=== PATIENT | female | born 1950 | race Caucasian/White ===

== ENCOUNTER 2019-11-21 09:03 | Outpatient (CLI) | payer OTHER, SELFPAY ==
[2019-11-21 09:31] LABS: Basophils Absolute Auto 0.1 K/mm3 (0.0-0.1); Basophils Percent Auto 0.8 % (0.2-1.2); Eosinophils Absolute Auto 0.4 K/mm3 (0-0.3); Eosinophils Percent Auto 4.6 % (0-4.4); Hematocrit 43.8 % (37.0-47.0); Hemoglobin 13.9 g/dL (12.0-15.0); Immature Granulocyte Absolute 0.02 K/mm3 (0.00-0.031); Immature Granulocyte Percent A 0.2 % (0-0.5); Lymphocytes Absolute Auto 2.73 K/mm3 (0.9-3.2); Lymphocytes Percent Auto 31.5 % (18.3-44.2); Mean Corpuscular HGB Conc 31.7 g/dl (32-36); Mean Corpuscular Hemoglobin 29.4 pg (26-34); Mean Corpuscular Volume 92.8 fl (80-100); Mean Platelet Volume 9.8 fl (7.4-10.4); Monocytes Absolute Auto 0.7 K/mm3 (0.1-0.6); Monocytes Percent Auto 8.5 % (2.6-8.5); Neutrophils Absolute Auto 4.7 K/mm3 (1.3-6.7); Neutrophils Percent Auto 54.4 % (45.5-73.1); Platelet Count Result 282 k/mm3 (150-375); Red Blood Count 4.72 M/mm3 (4.2-5.4); Red Cell Distribution Width 13.6 % (11.5-14.5); White Blood Count 8.7 K/mm3 (4.5-10.0)
[2019-11-21 09:38] LABS: Hemoglobin A1C 7.3 % (<5.7)
[2019-11-21 10:17] LABS: Creatinine Urine 55.3 mg/dL
[2019-11-21 10:22] LABS: MALB Creatinine Ratio 11.6 mg/g (0-30); Microalbumin Urine Random 6.4 mg/L (0-16.7)
[2019-11-21 10:38] LABS: Alanine Aminotransferase 25 U/L (4-35); Albumin Level 4.2 g/dL (3.5-5.1); Alkaline Phosphatase 88 U/L (38-126); Aspartate Amino Transferase 32 U/L (14-36); Bilirubin,Total 0.8 mg/dL (0.2-1.3); Blood Urea Nitrogen 11 mg/dL (7-17); Calcium 9.5 mg/dL (8.4-10.2); Carbon Dioxide 32 mmol/L (22-30); Chloride 101 mmol/L (98-107); Estimated Glomerular Filt Rate > 60; Glucose 128 mg/dL (65-105); Potassium 4.6 mmol/L (3.4-5.0); Sodium 139 mmol/L (137-145)
[2019-11-21 12:39] LABS: Folic Acid > 20.0 ng/mL (2.76->20)
== END 2019-11-21 09:04 | disposition home or self-care (01) ==
PROVIDERS: PCP Internal Medicine; Visit Provider Internal Medicine
DX: E11.9 Type 2 diabetes mellitus without complications (principal); I10 Essential (primary) hypertension; G62.9 Polyneuropathy, unspecified
CPT/HCPCS: 36415; 80053; 82043; 82607; 82746; 83036; 84443; 85025

== ENCOUNTER 2020-03-19 06:59 | Outpatient (CLI) | payer OTHER, SELFPAY ==
[2020-03-19 07:57] LABS: Anion Gap 6 mmol/L (8-16); Blood Urea Nitrogen 15 mg/dL (7-17); Calcium 9.5 mg/dL (8.4-10.2); Carbon Dioxide 30 mmol/L (22-30); Chloride 102 mmol/L (98-107); Estimated Glomerular Filt Rate > 60; Glucose 117 mg/dL (65-105); Sodium 138 mmol/L (137-145)
[2020-03-19 08:50] LABS: Creatinine Urine 172.7 mg/dL
[2020-03-19 08:56] LABS: MALB Creatinine Ratio 5.7 mg/g (0-30); Microalbumin Urine Random 9.9 mg/L (0-16.7)
[2020-03-19 10:56] LABS: Hemoglobin A1C 6.7 % (<5.7)
== END 2020-03-19 07:00 | disposition home or self-care (01) ==
PROVIDERS: PCP Internal Medicine; Visit Provider Internal Medicine
DX: E11.42 Type 2 diabetes mellitus with diabetic polyneuropathy (principal)
CPT/HCPCS: 36415; 80048; 82043; 83036

== ENCOUNTER 2020-03-21 15:24 | Outpatient (CLI) | payer OTHER, SELFPAY ==
--- NOTE | ~2020-03-21 | XR_ITS ---
EXAMINATION: XR hip RT 2V w AP pelvis DATE: 03/21/2020 15:45 INDICATION: Right hip pain post fall TECHNIQUE: Anteroposterior view of the pelvis and anteroposterior, frog leg and cross-table lateral v iews of the right hip were obtained. COMPARISON: CT dated 01/27/2019 FINDINGS: Alignment is normal. No fracture. Bilateral severe right and moderate left hip osteoarthritis. There is also mild bilateral sacral iliac osteoarthritis. Severe bilateral lower lumbar facet osteoarthriti s. IMPRESSION: 1. No acute osseous abnormality. 2. 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 Reviewed, dictated and finalized at location A. IMPRESSION: 1. No acute osseous abnormality. 2. Polyarticular osteoarthritis, moderate at the left hip and severe at the rig ht hip.
== END 2020-03-21 15:25 | disposition home or self-care (01) ==
PROVIDERS: PCP Internal Medicine; Visit Provider Internal Medicine
DX: M25.551 Pain in right hip (principal); M16.0 Bilateral primary osteoarthritis of hip
CPT/HCPCS: 73502

== ENCOUNTER 2020-03-30 01:09 | Outpatient (CLI) | payer OTHER, SELFPAY ==
[2020-03-30 18:19] LABS: SARS-CoV-2 RNA PCR Negative
== END 2020-03-30 01:10 | disposition home or self-care (01) ==
LOC: ANHCOVIDDT 01:09
PROVIDERS: PCP Internal Medicine; Visit Provider Internal Medicine Gastroenterology
DX: Z01.812 Encounter for preprocedural laboratory examination (principal); Z20.828 Contact with and (suspected) exposure to other viral communicable diseases
CPT/HCPCS: 87635; C9803; U0003

== ENCOUNTER 2020-04-01 01:15 | Day surgery (SDC) | payer OTHER, SELFPAY ==
[2020-03-17 14:49] VITALS: BMI 33.7
[2020-04-01 08:50] VITALS: BP 142/89; PULSE 93; RESP 20; TEMP 36.8; O2SAT 96
--- NOTE | 2020-04-01 09:12 | SUR.PREOP ---
STRATUS WAS USED TO SIGN TO PT
[2020-04-01] MEDS: LACTATED RINGERS 1,000 ML 150 ML IV CONT (09:24)
[2020-04-01 09:34] LABS: Glucose Point of Care 124 (65-105)
--- NOTE | 2020-04-01 09:48 | PM.HPGS ---
History of Present Illness History of Present Illness Consent: Risks, benefits, and alternatives have been discussed and questions answered. Patient agrees to proceed with procedure. Chief complaint: neoplasm screening Narrative: Lucia Bruner is a 69 year old female here for colonoscopy, last one with polyps about 5-6 years ago. 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 Review of Systems Constitutional: Constitutional: Denies headache(s) and Denies weakness Eyes: Eyes: Denies blurry vision ENT: Denies Normal hearing present, Denies headache(s) and Denies neck pain Cardiovascular: Cardiovascular: Denies chest pain and Denies dyspnea Respiratory: Respiratory: Denies dyspnea Gastrointestinal: Gastrointestinal: Reports no additional gastrointestinal complaints Genitourinary: Genitourinary: Denies dysuria Musculoskeletal: Musculoskeletal: Denies neck pain Integumentary/Breasts: Skin/Breast: Denies dry skin Neurologic: Reports Normal hearing present, Denies headache(s) and Denies weakness Psychiatric: Psychiatric: Denies anxiety Endocrine: Endocrine: Denies change in body appearance Hematologic/Lymphatic: Hematologic/Lymphatic: Denies easy bleeding Allergic/Immunologic: Allergic/Immunologic: Denies urticaria PMFSH Past Medical History Medical History (Updated 04/01/20 @ 09:49 by Redd Landon MD) Deaf, nonspeaking Dyslipidemia Essential hypertension ELIZABETH (obstructive sleep apnea) ELIZABETH (obstructive sleep apnea) Type 2 diabetes mellitus with diabetic polyneuropathy, without long-term current use of insulin Family History Family History (Updated 04/16/18 @ 10:28 by DOCTOR UNKNOWN) Mother Diabetes mellitus Father Asthma Family history of chronic obstructive pulmonary disease Other Cerebrovascular accident Depression Family history of alcoholism Family history of obesity Social History Social History Smoking status: Never smoker Alcohol intake: never Meds Home Medications and Allergies Home Medications Medication Instructions Recorded Confirmed Type aspirin 81 mg tablet,delayed 81 mg PO DAILY 06/01/19 04/01/20 History release omeprazole 20 mg capsule,delayed 20 mg PO BID #180 cap 10/21/19 04/01/20 Rx release atorvastatin 20 mg tablet See Rx Instructions .ROUTE 02/09/20 04/01/20 Rx .COMPLEX #90 tablet lisinopril 20 mg tablet See Rx Instructions .ROUTE 02/09/20 04/01/20 Rx .COMPLEX #90 tablet metformin 500 mg tablet See Rx Instructions .ROUTE 03/09/20 04/01/20 Rx .COMPLEX #360 tablet calcium phosphate-vitamin D3 1 tablet PO BID 03/17/20 04/01/20 History [Citracal-D3 Gummies] fluoxetine 20 mg capsule 20 mg PO DAILY #90 cap 03/17/20 04/01/20 Rx [id number]-zbm-[id number]-vit [id number] 1 tablet PO DAILY 03/17/20 04/01/20 History [Alive Women's 50 Plus (blend)] semaglutide 3 mg tablet 3 mg PO DAILY 30 Days #30 tablet 03/21/20 04/01/20 Rx sodium,potassium,mag sulfates 17.5 See Rx Instructions PO .COMPLEX 03/21/20 04/01/20 Rx gram-3.13 gram-1.6 gram oral soln #354 ml Allergies Allergy/AdvReac Type Severity Reaction Status Date / Time Penicillins Allergy Unknown Rash Verified 04/01/20 09:11 Vital Signs Vital Signs - 24 hr 04/01/20 08:50 Temperature 98.3 F Pulse Rate 93 Respiratory Rate 20 Blood Pressure 142/89 H Pulse Oximetry 96 Exam Const: General: comfortable and no acute distress HENMT: General nose exam: Normal nares present Other: deaf Eyes: General: appearance normal, both eyes and all related structures Neck: Neck: no JVD Resp: Auscultation: clear to auscultation bilaterally Cardio: Rate: regular rate Rhythm: regular rhythm GI: Inspection: non-distended GI Palp: Yes Soft to palpation Skin: General skin exam: normal color Neuro: General: gait normal Speech: normal speech Extrem: General: normal to inspection Psych: Mental Status: mental status grossly normal Assessment and Plan Assessment and mratha
--- NOTE | 2020-04-01 09:49 | WPDANESEPPF ---
Anes - Initial Pre Proc Eval Procedure: Operation Date: 04/01/20 10:00 Proposed Procedures p Screening Colonoscopy - Redd Landon MD Date/Time: 04/01/20 09:49 Surgeon: Redd Landon MD Pre Op Diagnosis: neoplasm screening Patient Data Age: 69 Gender: F Height: 5 ft 6 in Weight: 92 kg Last Vital Signs Temp 98.3 F 04/01/20 08:50 Pulse 93 04/01/20 08:50 Resp 20 04/01/20 08:50 BP 142/89 H 04/01/20 08:50 Pulse Ox 96 04/01/20 08:50 Allergies Allergy/AdvReac Type Severity Reaction Status Date / Time Penicillins Allergy Unknown Rash Verified 04/01/20 09:11 Home Medications Medication Instructions Recorded Confirmed Type aspirin 81 mg tablet,delayed 81 mg PO DAILY 06/01/19 04/01/20 History release omeprazole 20 mg capsule,delayed 20 mg PO BID #180 cap 10/21/19 04/01/20 Rx release atorvastatin 20 mg tablet See Rx Instructions .ROUTE 02/09/20 04/01/20 Rx .COMPLEX #90 tablet lisinopril 20 mg tablet See Rx Instructions .ROUTE 02/09/20 04/01/20 Rx .COMPLEX #90 tablet metformin 500 mg tablet See Rx Instructions .ROUTE 03/09/20 04/01/20 Rx .COMPLEX #360 tablet calcium phosphate-vitamin D3 1 tablet PO BID 03/17/20 04/01/20 History [Citracal-D3 Gummies] fluoxetine 20 mg capsule 20 mg PO DAILY #90 cap 03/17/20 04/01/20 Rx [id number]-lrhsn-vit [id number] 1 tablet PO DAILY 03/17/20 04/01/20 History [Alive Women's 50 Plus (blend)] semaglutide 3 mg tablet 3 mg PO DAILY 30 Days #30 tablet 03/21/20 04/01/20 Rx sodium,potassium,mag sulfates 17.5 See Rx Instructions PO .COMPLEX 03/21/20 04/01/20 Rx gram-3.13 gram-1.6 gram oral soln #354 ml Laboratory Tests 04/01/20 09:27 POC Capillary Glucose 124 mg/dl H mg/dl (65-105) Patient hx anesthesia problems: none Family hx anesthesia problems: none PMFSH Past Medical History Medical History (Updated 04/01/20 @ 09:49 by Price Atkinson MD) Dyslipidemia Essential hypertension ELIZABETH (obstructive sleep apnea) ELIZABETH (obstructive sleep apnea) Type 2 diabetes mellitus with diabetic polyneuropathy, without long-term current use of insulin Family History Family History (Updated 04/16/18 @ 10:28 by DOCTOR UNKNOWN) Mother Diabetes mellitus Father Asthma Family history of chronic obstructive pulmonary disease Other Cerebrovascular accident Depression Family history of alcoholism Family history of obesity Social History Social History Smoking status: Never smoker Alcohol intake: never Anes - Eval Final PreProcedure Day of Procedure 04/01/20 09:49 Patient weight: obese Heart: regular rate and rhythm Lungs: clear to auscultation Airway: Mallampati scale class II Neurological: alert and oriented Last oral intake: >/= 8 hours ASA classification: III Emergent: no Anesthetic plan: proceed Anesthesia type and monitoring: general GIVS and standard monitoring Informed Consent: The patient's anesthetic plan and its attendant risks and benefits were discussed with the patient/family/POA. Questions were solicited and answers provided to the satisfaction of the patient/family/POA.
[2020-04-01 10:26] VITALS: BP 116/86; PULSE 88; RESP 21; O2SAT 95
[2020-04-01 10:36] VITALS: BP 126/77; PULSE 79; RESP 27; O2SAT 96
[2020-04-01 10:46] VITALS: BP 136/86; PULSE 74; RESP 13; O2SAT 95
--- NOTE | 2020-04-01 10:46 | PC.NURSE ---
Crowd Controller used with MD and RN for education and teaching.
== END 2020-04-01 11:12 | disposition home or self-care (01) ==
PROVIDERS: PCP Internal Medicine; Visit Provider Internal Medicine Gastroenterology
PROC: 0DJD8ZZ Inspection of Lower Intestinal Tract, Via Natural or Artificial Opening Endoscopic (ICD-10-PCS; CPT 45378; principal; 2020-04-01 10:00)
DX: Z12.11 Encounter for screening for malignant neoplasm of colon (principal); D12.2 Benign neoplasm of ascending colon; H91.3 Deaf nonspeaking, not elsewhere classified; I10 Essential (primary) hypertension; E78.5 Hyperlipidemia, unspecified; G47.33 Obstructive sleep apnea (adult) (pediatric); E11.42 Type 2 diabetes mellitus with diabetic polyneuropathy; Z79.84 Long term (current) use of oral hypoglycemic drugs; E66.9 Obesity, unspecified; Z68.32 Body mass index [BMI] 32.0-32.9, adult; Z79.82 Long term (current) use of aspirin; Z79.899 Other long term (current) drug therapy; Z88.0 Allergy status to penicillin
CPT/HCPCS: 45380; 88305; J2001; J2704; J7120

== ENCOUNTER 2020-04-05 09:42 | Outpatient (CLI) | payer OTHER, SELFPAY ==
--- NOTE | ~2020-04-05 | MM_ITS ---
EXAMINATION: MM screening kojo BI w kira HISTORY: Screening TECHNIQUE: Craniocaudal and mediolateral oblique 3-D tomosynthesis images were obtained and synthetic 2-D images were generated. CAD analysis was submitted and interpreted. COMPARISON: No prior mammogram is available for comparison at this institution. BREAST PARENCHYMAL COMPOSITION: There are scattered areas of fibroglandular density. FINDINGS: There are bilateral periareolar asymmetries. There are benign breast calcifications. IMPRESSION: 1. Bilateral periareolar asymmetries. 2. Additional mammographic views and possible breast ultrasound are recommended. BI-RADS Category 0: Incomplete: Needs additional imaging evaluation. Reviewed, dictated and finalized at location A. IMPRESSION: 1. Bilateral periareolar asymmetries. 2. Additional mammographic views and possible breast ultrasound are recommended . BI-RADS Category 0: Incomplete: Needs additional imaging evaluation.
== END 2020-04-05 09:43 | disposition home or self-care (01) ==
PROVIDERS: PCP Internal Medicine; Visit Provider Internal Medicine
DX: Z12.31 Encounter for screening mammogram for malignant neoplasm of breast (principal); R92.8 Other abnormal and inconclusive findings on diagnostic imaging of breast
CPT/HCPCS: 77063; 77067

== ENCOUNTER 2020-05-11 11:51 | Outpatient (CLI) | payer OTHER, SELFPAY | END 2020-05-11 11:52 | disposition home or self-care (01) | LOC: ANHLAB 11:53 | PROVIDERS: PCP Internal Medicine; Visit Provider Internal Medicine | DX: G62.9 Polyneuropathy, unspecified (principal) | CPT/HCPCS: 36415 ==

== ENCOUNTER 2020-06-07 11:03 | Outpatient (CLI) | payer OTHER, SELFPAY ==
[2020-06-07 11:47] LABS: Basophils Absolute Auto 0.1 K/mm3 (0.0-0.1); Basophils Percent Auto 0.8 % (0.2-1.2); Eosinophils Absolute Auto 0.3 K/mm3 (0-0.3); Eosinophils Percent Auto 3.2 % (0-4.4); Hematocrit 41.8 % (37.0-47.0); Hemoglobin 13.4 g/dL (12.0-15.0); Immature Granulocyte Absolute 0.04 K/mm3 (0.00-0.031); Immature Granulocyte Percent A 0.4 % (0-0.5); Lymphocytes Absolute Auto 3.01 K/mm3 (0.9-3.2); Lymphocytes Percent Auto 30.7 % (18.3-44.2); Mean Corpuscular HGB Conc 32.1 g/dl (32-36); Mean Corpuscular Hemoglobin 29.3 pg (26-34); Mean Corpuscular Volume 91.3 fl (80-100); Mean Platelet Volume 9.8 fl (7.4-10.4); Monocytes Absolute Auto 0.8 K/mm3 (0.1-0.6); Monocytes Percent Auto 8.1 % (2.6-8.5); Neutrophils Absolute Auto 5.6 K/mm3 (1.3-6.7); Neutrophils Percent Auto 56.8 % (45.5-73.1); Platelet Count Result 289 k/mm3 (150-375); Red Blood Count 4.58 M/mm3 (4.2-5.4); White Blood Count 9.8 K/mm3 (4.5-10.0)
[2020-06-07 12:01] LABS: Alanine Aminotransferase 34 U/L (4-35); Albumin Level 4.2 g/dL (3.5-5.1); Alkaline Phosphatase 88 U/L (38-126); Anion Gap 8 mmol/L (8-16); Aspartate Amino Transferase 34 U/L (14-36); Bilirubin,Total 0.5 mg/dL (0.2-1.3); Blood Urea Nitrogen 11 mg/dL (7-17); Calcium 9.6 mg/dL (8.4-10.2); Carbon Dioxide 30 mmol/L (22-30); Chloride 103 mmol/L (98-107); Cholesterol 128 mg/dL (0-200); Estimated Glomerular Filt Rate > 60; Glucose 102 mg/dL (65-105); HDL Direct 34 mg/dL; Potassium 4.8 mmol/L (3.4-5.0); Sodium 141 mmol/L (137-145); Triglycerides 120 mg/dL (<150)
[2020-06-07 12:10] LABS: Hemoglobin A1C 6.4 % (<5.7)
[2020-06-07 12:12] LABS: LDL Cholesterol Direct 80 mg/dL
[2020-06-07 13:05] LABS: Folic Acid 13.7 ng/mL (2.76->20)
== END 2020-06-07 11:04 | disposition home or self-care (01) ==
LOC: ANHLAB 11:05
PROVIDERS: PCP Internal Medicine; Visit Provider Internal Medicine
DX: G62.9 Polyneuropathy, unspecified (principal); F33.1 Major depressive disorder, recurrent, moderate; I10 Essential (primary) hypertension; E11.42 Type 2 diabetes mellitus with diabetic polyneuropathy; E78.2 Mixed hyperlipidemia
CPT/HCPCS: 36415; 80053; 80061; 82607; 82746; 83036; 85025

== ENCOUNTER 2020-06-08 10:21 | Outpatient (CLI) | payer OTHER, SELFPAY ==
[2020-06-08 10:58] LABS: Creatinine Urine 81.9 mg/dL; Total Protein Urine Random 9 mg/dL
== END 2020-06-08 10:22 | disposition home or self-care (01) ==
PROVIDERS: PCP Internal Medicine; Visit Provider Internal Medicine
DX: E78.5 Hyperlipidemia, unspecified (principal); E11.42 Type 2 diabetes mellitus with diabetic polyneuropathy; G62.9 Polyneuropathy, unspecified; F33.1 Major depressive disorder, recurrent, moderate; I10 Essential (primary) hypertension
CPT/HCPCS: 82570; 84156

== ENCOUNTER 2020-09-16 15:45 | Emergency (ER) | payer OTHER, SELFPAY ==
--- NOTE | ~2020-09-16 | XR_ITS ---
EXAMINATION: XR chest 1V portable INDICATION: Shortness of breath and coughing TECHNIQUE: Portable AP chest at 1650 hours COMPARISON: 08/17/2019 FINDINGS: The lungs are free of acute opacities. There is no pleural effusion or pneumothorax. The ca rdiomediastinal silhouette is normal. IMPRESSION: 1. No acute cardiopulmonary abnormality. Reviewed, dictated and finalized at location A. R AND SLICER HAND
--- NOTE | ~2020-09-16 | XR_ITS ---
EXAMINATION: XR abdomen/kub 1V DATE: 09/16/2020 17:48 INDICATION: Low back pain. TECHNIQUE: A supine view of the abdomen on 2 radiographs was obtained. COMPARISON: None. FINDINGS: Several phleboliths in the pelvis. Moderate amount of gas and stool scattered throughout the bowels w ith no dilated bowel to suggest obstruction. No evident urolithiasis. Severe right and mild to modera te left hip osteoarthritis. Severe lower lumbar facet osteoarthritis. IMPRESSION: 1. Nonobstructive bowel gas pattern. Reviewed, dictated and finalized at location A. RIAL CONTROLLER
--- NOTE | ~2020-09-16 | CT_ITS ---
EXAMINATION: CT abdomen pelvis wo con DATE: 09/16/2020 17:56 INDICATION: Kidney stones. Low back pain. TECHNIQUE: Computed tomography (CT) of the abdomen and pelvis was performed without intravenous contr ast. Automated exposure control and iterative reconstruction technique were employed. The dose-length product was 912.08 mGy-cm. COMPARISON: 01/27/2019 FINDINGS: Mild dependent atelectasis in the bilateral lower lobes. Heart size is normal. No pericardial or pleu ral effusion. Small calcified gallstones along the dependent aspect of the otherwise normal gallbladd er. No gallbladder wall thickening or pericholecystic inflammatory change to suggest acute cholecysti tis. Diffuse hepatic steatosis with focal sparing along the gallbladder fossa. Spleen, pancreas and b ilateral adrenal glands are normal. Kidneys and ureters are normal with no urolithiasis, hydrouretero nephrosis or perinephric/ureteral stranding. Moderate amount of colonic stool. A couple sigmoid diver ticula without adjacent inflammatory change to suggest diverticulitis. Small bowel and appendix are n ormal. Bladder, uterus and bilateral adnexa are unremarkable. No free intraperitoneal gas or fluid. N o pathologically enlarged abdominal or pelvic lymphadenopathy. Moderate lumbar and lower thoracic spo ndylosis with 4 mm anterolisthesis L4 on L5 and severe bilateral lower lumbar facet osteoarthritis. 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 Severe right and mild to moderate left hip osteoarthritis. IMPRESSION: 1. No urolithiasis or acute intra-abdominal/pelvic process. 2. Cholelithiasis. 2. Diffuse hepatic steatosis. Reviewed, dictated and finalized at location A. DE FROID
[2020-09-16 15:58] VITALS: BP 148/77; PULSE 52; RESP 18; TEMP 33.2; O2SAT 97
[2020-09-16 16:47] LABS: Basophils Absolute Auto 0.1 K/mm3 (0.0-0.1); Basophils Percent Auto 0.6 % (0.2-1.2); Eosinophils Absolute Auto 0.4 K/mm3 (0-0.3); Eosinophils Percent Auto 2.7 % (0-4.4); Hematocrit 43.1 % (37.0-47.0); Hemoglobin 14.3 g/dL (12.0-15.0); Immature Granulocyte Absolute 0.06 K/mm3 (0.00-0.031); Immature Granulocyte Percent A 0.4 % (0-0.5); Lymphocytes Absolute Auto 3.51 K/mm3 (0.9-3.2); Lymphocytes Percent Auto 25.9 % (18.3-44.2); Mean Corpuscular HGB Conc 33.2 g/dl (32-36); Mean Corpuscular Hemoglobin 30.2 pg (26-34); Mean Corpuscular Volume 91.1 fl (80-100); Mean Platelet Volume 9.9 fl (7.4-10.4); Monocytes Percent Auto 7.4 % (2.6-8.5); Neutrophils Absolute Auto 8.5 K/mm3 (1.3-6.7); Platelet Count Result 334 k/mm3 (150-375); Red Blood Count 4.73 M/mm3 (4.2-5.4); Red Cell Distribution Width 13.6 % (11.5-14.5); White Blood Count 13.5 K/mm3 (4.5-10.0)
[2020-09-16 16:50] LABS: Add Urine Microscopic? YES; Appearance Urine Cloudy (Clear); Bacteria Urine Trace /hpf; Bilirubin Urine Negative (Negative); Blood Urine 1+ (Negative); Color Urine Straw (Yellow); Glucose Urine UA Negative (Negative); Ketones Urine Negative (Negative); Leukocyte Esterase Ur 3+ LEU/UL (Negative); Mucus Urine Rare /lpf; Nitrate Urine Negative (Negative); Protein Urine Negative (Negative); Squamous Epithelial Cell Urine Few /hpf (Few); Urobilinogen Urine Negative mg/dL (<2.0); WBC Urine 31-50 /hpf
--- NOTE | 2020-09-16 16:58 | PC.NURSE ---
orders for meds received. radiology in room now for portable xray.
[2020-09-16 17:00] LABS: Alanine Aminotransferase 31 U/L (4-35); Albumin Level 4.5 g/dL (3.5-5.1); Alkaline Phosphatase 102 U/L (38-126); Anion Gap 8 mmol/L (8-16); Aspartate Amino Transferase 36 U/L (14-36); Bilirubin,Total 0.5 mg/dL (0.2-1.3); Blood Urea Nitrogen 12 mg/dL (7-17); Carbon Dioxide 30 mmol/L (22-30); Chloride 101 mmol/L (98-107); Estimated CRCL calculation 75 ml/min; Estimated Glomerular Filt Rate > 60; Glucose 101 mg/dL (65-105); Potassium 4.3 mmol/L (3.4-5.0); Sodium 139 mmol/L (137-145)
[2020-09-16] MEDS: SODIUM CHLORIDE 0.9% IV 1,000 ML 999 ML IV CONT (17:10)
--- NOTE | 2020-09-16 17:18 | ED.GENADULT ---
HPI - General Adult General Chief complaint: Back Pain/Injury Stated complaint: severe back pain Time Seen by Provider: 09/16/20 16:08 Source: patient and family Mode of arrival: ambulatory Limitations: language barrier History of Present Illness HPI narrative: Patient 70-year-old female who presents with right CVA pain that is severe in nature has been present for 1 day denies similar occurrence in the past injury or trauma pain is worse with deep breathing and movement pain does not radiate patient denies urinary symptoms fever chills nausea vomiting or diarrhea. On arrival patient appears uncomfortable and is accompanied by her daughter Related Data Home Medications Medication Instructions Recorded Confirmed aspirin 81 mg tablet,delayed 81 mg PO DAILY 06/01/19 09/07/20 release calcium phosphate-vitamin D3 1 tablet PO BID 03/17/20 09/07/20 [Citracal-D3 Gummies] ud-elq-pzhjv-vit [id number] 1 tablet PO DAILY 03/17/20 09/07/20 [Alive Women's 50 Plus (blend)] Allergies Allergy/AdvReac Type Severity Reaction Status Date / Time Penicillins Allergy Unknown Rash Verified 09/07/20 10:13 Review of Systems Review of Systems: All systems reviewed & are unremarkable except as noted in HPI and below PMFSH Past Medical History Medical History Deaf, nonspeaking Dyslipidemia Essential hypertension ELIZABETH (obstructive sleep apnea) ELIZABETH (obstructive sleep apnea) Type 2 diabetes mellitus with diabetic polyneuropathy, without long-term current use of insulin Family History Family History Mother Diabetes mellitus Father Asthma Family history of chronic obstructive pulmonary disease Other Cerebrovascular accident Depression Family history of alcoholism Family history of obesity Social History Social History Alcohol intake: never Exam Narrative: Exam Narrative: GENERAL: Well-appearing, obese, uncomfortable and in no acute distress. HEAD: Normocephalic, atraumatic. EYES: PERRLA and EOMI. ENT: Nares clear, no rhinorrhea or epistaxis. Mucous membranes moist. NECK: Supple. No adenopathy or masses. No carotid bruits or JVD CHEST: Clear to auscultation. No respiratory distress. No wheezes rales or rhonchi HEART: Regular rate and rhythm. No murmur heard. Normal peripheral pulses. ABDOMEN: Soft, nontender, nondistended EXTREMITIES: Normal range of motion. No edema. Tenderness in the right CVA region SKIN: Warm, dry, no rash. NEURO: No focal deficits. Alert and oriented x3. PSYCH: Normal mood and affect. Course Course Emergency Course: Patient in the room at this time feeling much better likely urinary tract infection as etiology of her discomfort was given fluids Tylenol and antibiotic with marked improvement patient will be discharged home with outpatient reevaluation by primary care provided with reasons to return patient is afebrile nontoxic-appearing no distress and otherwise resting comfortably in the room Vital Signs Vital signs: Vital Signs Temperature 91.7 F L 09/16/20 15:58 Pulse Rate 52 L 09/16/20 15:58 Respiratory Rate 18 09/16/20 15:58 Blood Pressure 148/77 H 09/16/20 15:58 Pulse Oximetry 97 09/16/20 15:58 Temperature 91.7 F L 09/16/20 15:58 Pulse Rate 78 09/16/20 19:11 Respiratory Rate 16 09/16/20 19:11 Blood Pressure 129/81 09/16/20 19:11 Pulse Oximetry 98 09/16/20 19:11 Medical Decision Making MDM Narrative Medical decision making narrative: Patient symptoms seem most consistent with urinary tract infection as etiology of her back pain had marked improvement in the emergency department is afebrile nontoxic-appearing will be discharged home with planned outpatient follow-up Vital Signs Vital Signs: Vital Signs Temperature 91.7 F L 09/16/20 15:58 Pulse Rate 52 L 09/16/20 15:58
[2020-09-16 19:11] VITALS: BP 129/81; PULSE 78; RESP 16; O2SAT 98
--- NOTE | 2020-09-16 19:12 | PC.NURSE ---
SL removed. patient ready for discharge. daughter in room. provider aware.
== END 2020-09-16 19:20 | disposition home or self-care (01) ==
PROVIDERS: Emergency Medicine Emergency Medical Services; Emergency Provider Emergency Medicine; PCP Internal Medicine
DX: N39.0 Urinary tract infection, site not specified (principal); E78.5 Hyperlipidemia, unspecified; I10 Essential (primary) hypertension; G47.33 Obstructive sleep apnea (adult) (pediatric); E11.42 Type 2 diabetes mellitus with diabetic polyneuropathy; Z79.82 Long term (current) use of aspirin; K80.20 Calculus of gallbladder without cholecystitis without obstruction; K76.0 Fatty (change of) liver, not elsewhere classified
CPT/HCPCS: 36415; 71045; 74018; 74176; 80053; 81001; 85025; 87086; 87088; 96365; 96367; 99284; J0131; J0696; J7030

== ENCOUNTER 2020-10-31 09:45 | Outpatient (CLI) | payer OTHER, SELFPAY ==
--- NOTE | ~2020-10-31 | XR_ITS ---
EXAMINATION: XR hip RT 2V w AP pelvis EXAM DATE: 10/31/2020 10:28 INDICATION: No known recent injury provided at this time. Pain of the right hip. TECHNIQUE: Right hip frontal, 'frog leg' projections for interpretation. Frontal projection pelvis. Comparison is made to prior examination from 03/21/2020. FINDINGS: There is moderate to severe right hip, moderate left hip primary osteoarthritis. There are no acute fractures or dislocations identified. There is no subcutaneous gas. The soft tissue is unr emarkable. There are no radiopaque foreign bodies. No hip avascular necrosis suspected. There is n o significant interval change. IMPRESSION: Moderate to severe right, moderate left hip osteoarthritis. Reviewed, dictated and finalized at location A.
== END 2020-10-31 09:46 | disposition home or self-care (01) ==
PROVIDERS: PCP Internal Medicine; Visit Provider Internal Medicine
DX: M16.0 Bilateral primary osteoarthritis of hip (principal)
CPT/HCPCS: 73502

== ENCOUNTER 2021-01-12 07:54 | Outpatient (CLI) | payer OTHER, SELFPAY ==
--- NOTE | 2021-01-12 09:50 | ECG_ITS ---
Measurements Intervals [place] Rate: 71 P: 59 CT: 167 QRS: -33 QRSD: 83 T: 11 QT: 370 QTc: 404 Interpretive Statements SINUS RHYTHM LEFT AXIS DEVIATION LOW QRS VOLTAGE IN PRECORDIAL LEADS POOR R WAVE PROGRESSION, ANTERIOR LEADS BASELINE ARTIFACT- I, II, III, AVR, AVL, AVF BORDERLINE ECG Electronically Signed On 01-12-2021 10:18:54 CDT by Femi Moy D.O.
[2021-01-12 10:23] LABS: Basophils Absolute Auto 0.1 K/mm3 (0.0-0.1); Basophils Percent Auto 0.8 % (0.2-1.2); Eosinophils Absolute Auto 0.3 K/mm3 (0-0.3); Eosinophils Percent Auto 3.5 % (0-4.4); Hemoglobin 14.6 g/dL (12.0-15.0); Immature Granulocyte Absolute 0.04 K/mm3 (0.00-0.031); Immature Granulocyte Percent A 0.4 % (0-0.5); Lymphocytes Absolute Auto 2.69 K/mm3 (0.9-3.2); Lymphocytes Percent Auto 27.5 % (18.3-44.2); Mean Corpuscular HGB Conc 31.1 g/dl (32-36); Mean Corpuscular Volume 93.4 fl (80-100); Mean Platelet Volume 9.9 fl (7.4-10.4); Monocytes Absolute Auto 0.8 K/mm3 (0.1-0.6); Monocytes Percent Auto 8.5 % (2.6-8.5); Neutrophils Absolute Auto 5.8 K/mm3 (1.3-6.7); Neutrophils Percent Auto 59.3 % (45.5-73.1); Platelet Count Result 308 k/mm3 (150-375); Red Blood Count 5.03 M/mm3 (4.2-5.4); Red Cell Distribution Width 14.4 % (11.5-14.5); White Blood Count 9.8 K/mm3 (4.5-10.0)
[2021-01-12 10:27] LABS: Urine Cotinine NEGATIVE
[2021-01-12 10:29] LABS: INR 0.9; Prothrombin Time 12.8 Seconds (11.1-14.7)
[2021-01-12 10:30] LABS: Partial Thromboplastin Time 27.1 SECONDS (22.3-36.8)
[2021-01-12 10:48] LABS: Add Urine Microscopic? YES; Appearance Urine Clear (Clear); Bacteria Urine Trace /hpf; Bilirubin Urine Negative (Negative); Blood Urine Negative (Negative); Color Urine Yellow (Yellow); Glucose Urine UA Negative (Negative); Ketones Urine Negative (Negative); Leukocyte Esterase Ur 3+ LEU/UL (Negative); Mucus Urine Rare /lpf; Nitrate Urine Negative (Negative); Protein Urine Negative (Negative); Squamous Epithelial Cell Urine Moderate /hpf (Few); Transitional Epi Cells Urine Rare /hpf (None Seen); Urobilinogen Urine Negative mg/dL (<2.0)
== END 2021-01-12 07:55 | disposition home or self-care (01) ==
LOC: ANHSURGERY 08:06
PROVIDERS: PCP Internal Medicine; Visit Provider Orthopaedic Surgery
DX: Z01.818 Encounter for other preprocedural examination (principal); M16.11 Unilateral primary osteoarthritis, right hip; Z51.81 Encounter for therapeutic drug level monitoring; Z79.899 Other long term (current) drug therapy
CPT/HCPCS: 80307; 81001; 85025; 85610; 85730; 86850; 86900; 86901; 87081; 87086; 87088; 93005

== ENCOUNTER 2021-04-09 00:43 | Observation (INO) | payer OTHER, SELFPAY ==
[2021-04-09] VITALS (11 sets, daily range): BP systolic 106–138; BP diastolic 58–89; PULSE 76–92; RESP 16–20; TEMP 36.4–36.7; O2SAT 96–99; BMI 32.7
--- NOTE | ~2021-04-09 | CT_ITS ---
EXAMINATION: CTA chest PE protocol DATE: 04/09/2021 02:03 INDICATION: Chest pain. TECHNIQUE: Computed tomography angiography (CTA) of the chest was performed with 100 mL Omnipaque-350 intravenous contrast timed to evaluate the pulmonary arteries. Coronal maximum intensity projection 3D-reconstructions were created by the technologist. Automated exposure control and iterative reconst ruction technique were employed. The dose-length product was 727.43 mGy-cm. COMPARISON: CT abdomen and pelvis 09/16/2020 FINDINGS: The lungs demonstrate mild atelectasis. There is mild scarring in paraspinal right lower lo be. No pleural effusion. The heart size is normal. No pericardial effusion. There is no pulmonary emb olus. There is diffuse hepatic steatosis. There is mild thoracic spondylosis. IMPRESSION: 1. No pulmonary embolus. Sensitivity is moderately decreased by motion artifact. Reviewed, dictated and finalized at location A. IMPRESSION: 1. No pulmonary embolus. Sensitivity is moderately decreased by motion artifact .
--- NOTE | ~2021-04-09 | XR_ITS ---
EXAMINATION: XR chest 1V portable DATE: 04/09/2021 01:08 INDICATION: Chest pain TECHNIQUE: frontal view of the chest was obtained. COMPARISON: Chest radiograph dated 09/16/2020 FINDINGS: Lung volumes are mildly decreased but remain clear with no focal airspace opacities, pulmonary edema, pleural effusion or pneumothorax. The cardiomediastinal silhouette is normal. Mild degenerative skel etal changes in the spine and at the bilateral shoulders. IMPRESSION: 1. No acute cardiopulmonary disease. Reviewed, dictated and finalized at location A.
--- NOTE | 2021-04-09 00:53 | ED.GENADULT ---
HPI - General Adult General Chief complaint: Chest Pain Stated complaint: chest pain Time Seen by Provider: 04/09/21 00:48 Source: RN notes reviewed History of Present Illness HPI narrative: Patient presents emergency department from home for chest pain. Patient states chest pain has been ongoing for the past 2 days the pain is intermittent and located over the left side the chest goes in the shoulder pain is described as sharp and stabbing she denies any associated shortness of breath or abdominal pain patient does state that she has a history of hypertension high cholesterol as well as diabetes she denies any fevers or chills nausea vomiting or any other symptom Related Data Home Medications Medication Instructions Recorded Confirmed aspirin 81 mg tablet,delayed 81 mg PO DAILY 06/01/19 04/05/21 release calcium phosphate-vitamin D3 1 tablet PO BID 03/17/20 04/05/21 [Citracal-D3 Gummies] [id number]-[id number]-vit [id number] 1 tablet PO DAILY 03/17/20 04/05/21 [Alive Women's 50 Plus (blend)] omeprazole 20 mg capsule,delayed 20 mg PO PRN PRN cap 12/13/20 04/05/21 release nystatin 100,000 unit/gram topical 1 applic TOPICAL DAILY 04/05/21 04/05/21 cream Allergies Allergy/AdvReac Type Severity Reaction Status Date / Time Penicillins Allergy Unknown Rash/ITCHIN Verified 04/05/21 09:30 G Review of Systems Review of Systems: Gen.: Denies fevers or chills ENT: Denies congestion Respiratory: Denies shortness of breath or cough CV: See HPI GI: Denies abdominal pain nausea, emesis or diarrhea Musculoskeletal: Denies back pain or muscle pain Neuro: Denies numbness, tingling, weakness or focal weakness Skin: Denies rash Except as documented, all other systems reviewed and negative [facility] Past Medical History Medical History Deaf, nonspeaking 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 Dyslipidemia Essential hypertension GERD (gastroesophageal reflux disease) Nasal septum ulceration Obesity (BMI 30.0-34.9) Obesity (BMI 30.0-34.9) ELIZABETH (obstructive sleep apnea) ELIZABETH (obstructive sleep apnea) Rash Seasonal allergies Type 2 diabetes mellitus with diabetic polyneuropathy, without long-term current use of insulin Vaccine counseling Vaginal dryness Venous insufficiency Surgical History Surgical History History of foot surgery Bilateral bunionectomy [id number] History of left knee replacement Family History Family History Mother Diabetes mellitus Father Asthma Family history of chronic obstructive pulmonary disease Other Arthritis Cerebrovascular accident Depression Family history of alcoholism Family history of obesity High cholesterol Social History Social History Smoking status: Never smoker Second hand tobacco smoke exposure: No Additional smoking assessment comments: DENIES ANY FORM OF TOBACCO USE Alcohol intake: never Substance use: never Substance use type: does not use Spiritual care concerns: No Exam Narrative: APPEARANCE: No acute distress, nontoxic, resting in bed EYES: EOMI HEENT: Normocephalic, atraumatic, OMM RESPIRATORY: No respiratory distress Clear to auscultation bilaterally with no rhonchi wheezing or rales. CARDIOVASCULAR: Regular rate and rhythm without murmurs rubs or gallops. ABDOMINAL: Soft, nontender, nondistended, no rebound or guarding MUSCULOSKELETAl: Moves all extremities. No clubbing, cyanosis or edema. NEURO: Awake and alert. Following commands, speech normal, no focal deficits SKIN:: Warm, dry. No rashes lesions or abrasions PSYCHIATRIC: Normal affect/mood, Course Course Emergency Course: Discussed with Dr. Nunez presentation work-up agrees with admission at this time Discussed with
--- NOTE | 2021-04-09 00:59 | ECG_ITS ---
Measurements Intervals [place] Rate: 100 P: 63 MN: 168 QRS: -36 QRSD: 83 T: 58 QT: 326 QTc: 422 Interpretive Statements SINUS TACHYCARDIA LEFT AXIS DEVIATION DELAYED PRECORDIAL R/S TRANSITION BASELINE ARTIFACT- I, II, III, AVF, V1-V6 BORDERLINE ECG Electronically Signed On 04-09-2021 7:09:28 CDT by Femi Moy D.O.
[2021-04-09 01:09] LABS: Basophils Absolute Auto 0.1 K/mm3 (0.0-0.1); Basophils Percent Auto 0.6 % (0.2-1.2); Eosinophils Absolute Auto 0.4 K/mm3 (0-0.3); Eosinophils Percent Auto 3.5 % (0-4.4); Hematocrit 40.4 % (37.0-47.0); Hemoglobin 12.5 g/dL (12.0-15.0); Immature Granulocyte Absolute 0.04 K/mm3 (0.00-0.031); Immature Granulocyte Percent A 0.4 % (0-0.5); Lymphocytes Absolute Auto 4.12 K/mm3 (0.9-3.2); Lymphocytes Percent Auto 38.2 % (18.3-44.2); Mean Corpuscular HGB Conc 30.9 g/dl (32-36); Mean Corpuscular Hemoglobin 28.4 pg (26-34); Mean Corpuscular Volume 91.8 fl (80-100); Mean Platelet Volume 9.4 fl (7.4-10.4); Monocytes Absolute Auto 0.9 K/mm3 (0.1-0.6); Monocytes Percent Auto 8.6 % (2.6-8.5); Neutrophils Absolute Auto 5.2 K/mm3 (1.3-6.7); Neutrophils Percent Auto 48.7 % (45.5-73.1); Platelet Count Result 321 k/mm3 (150-375); Red Cell Distribution Width 13.4 % (11.5-14.5); White Blood Count 10.8 K/mm3 (4.5-10.0)
[2021-04-09 01:19] LABS: Alanine Aminotransferase 23 U/L (4-35); Albumin Level 4.2 g/dL (3.5-5.1); Alkaline Phosphatase 113 U/L (38-126); Anion Gap 7 mmol/L (8-16); Aspartate Amino Transferase 28 U/L (14-36); Bilirubin,Total 0.4 mg/dL (0.2-1.3); Blood Urea Nitrogen 15 mg/dL (7-17); Calcium 10.1 mg/dL (8.4-10.2); Carbon Dioxide 29 mmol/L (22-30); Chloride 101 mmol/L (98-107); Estimated Glomerular Filt Rate > 60; Glucose 150 mg/dL (65-110); Potassium 4.5 mmol/L (3.4-5.0); Sodium 137 mmol/L (137-145)
[2021-04-09 01:27] LABS: Prothrombin Time 12.6 Seconds (11.1-14.7)
[2021-04-09 01:28] LABS: Partial Thromboplastin Time 26.9 SECONDS (22.3-36.8)
[2021-04-09 01:31] LABS: D Dimer 1.46 ug/mL (<0.48)
[2021-04-09 01:33] LABS: Troponin I < 0.012 ng/mL (0.000-0.034)
[2021-04-09] MEDS: ASPIRIN 81 MG CHEWABLE TABLET 324 MG PO (03:15)
--- NOTE | 2021-04-09 05:53 | ADMIMU ---
This patient, Lucia Bruner, was admitted to IMU status, and placed in IMU Room 206-01 0n 04/09/21 at 0430. Patient/family oriented to hospital policies and general routines including ID bracelet, bed and alarms, visiting hours, pain management, procedures, bathroom and other care routines, personal items, smoking policy, room service/diet, and visiting hours. Valuables list has been completed. Information on how to activate the Rapid Response Team has been discussed. Patient/Family are encouraged to report perceived risks to care and to ask questions if they do not understand what they are told or what they should do.
--- NOTE | 2021-04-09 05:58 | PC.NURSE ---
Pt recieved both doses of Moderna covid vaccination.
[2021-04-09 06:19] LABS: Troponin I < 0.012 ng/mL (0.000-0.034)
[2021-04-09 08:26] LABS: Troponin I < 0.012 ng/mL (0.000-0.034)
[2021-04-09] MEDS: GABAPENTIN 300 MG CAPSULE 600 MG PO (09:15)
[2021-04-09] MEDS: ENOXAPARIN 40 MG/0.4 ML SYRINGE SUB-Q (09:22)
[2021-04-09] MEDS: ATORVASTATIN 20 MG TABLET BY MOUTH (09:22)
[2021-04-09] MEDS: lisinopriL 20 MG TABLET BY MOUTH (09:22)
[2021-04-09] MEDS: ASPIRIN 81 MG ENTERIC TABLET PO (09:22)
[2021-04-09] MEDS: MAGNESIUM OXIDE 200 MG TABLET PO (09:26)
[2021-04-09] MEDS: PANTOPRAZOLE 40 MG TABLET PO (09:26)
--- NOTE | 2021-04-09 10:28 | PM.CNCAR ---
Assessment and Plan Assessment and plan (1) Chest pain: Code(s): R07.9 - Chest pain, unspecified Status: Acute Assessment and Plan: Left chest and shoulder discomfort in an older lady with multiple risk factors for coronary disease. Atypical for cardiac pain Troponins are negative EKG is normal This appears to be musculoskeletal pain, possibly rotator cuff injury. Discussed with DONA Babcock, agree with plan for Aleve, Tylenol and follow-up with Dr. Tatum (2) Essential hypertension: Code(s): I10 - Essential (primary) hypertension Status: Acute Assessment and Plan: Controlled. History of Present Illness History of Present Illness Consult date/time: 04/09/21 10:28 Consult reason: chest pain Reason For Visit: Chest Pain Narrative: Lucia Bruner is a 70-year-old female whom I was asked to see at the request of the hospitalist for my advice and opinion regarding her chest pain, in consultation. She has history of hypertension, diabetes and hyperlipidemia. 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 The patient apparently started having left shoulder and left upper chest pain after doing some painting on her house in December. This seemed to resolve. She had hip surgery in February by dr. Tatum with a good recovery. She has been started on gabapentin for some tingling in her feet. She started having recurrent discomfort of the left shoulder radiating to the chest perhaps on Saturday. These episodes only occur in bed, particularly when she rolls over on her left side. It is a stabbing, electrical pain in the left upper chest, shoulder and arm which becomes an intense pressure. She gets to gasping for breath because of pain, although she is not short of breath. She will get up and walk around and it resolves. It is very scary. In the last day or 2 she has had some heart pounding associated with that. There has been no nausea. During the day she can get up and do normal activities with no particular problems. There is no history of any heart disease or exertional chest discomfort. Review of Systems Constitutional: Constitutional: Reports no additional constitutional complaints Eyes: Eyes: Denies blurry vision ENT: Denies epistaxis Cardiovascular: Cardiovascular: Reports chest pain, Denies diaphoresis, Denies pedal edema, Denies leg edema, Denies lightheadedness and Reports palpitations Respiratory: Respiratory: Denies cough, Reports dyspnea and Denies dyspnea on exertion Gastrointestinal: Gastrointestinal: Denies abdominal pain Genitourinary: Genitourinary: Reports no additional female genitourinary complaints Musculoskeletal: Musculoskeletal: Reports arthralgias Comments: No history of any neck or back problems. Integumentary/Breasts: Skin/Breast: Denies rash Neurologic: Denies confusion Comments: Patient is deaf Psychiatric: Psychiatric: Denies behavioral changes PMFSH Past Medical History Medical History Deaf, nonspeaking 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 Dyslipidemia Essential hypertension GERD (gastroesophageal reflux disease) Nasal septum ulceration Obesity (BMI 30.0-34.9) Obesity (BMI 30.0-34.9) ELIZABETH (obstructive sleep apnea) ELIZABETH (obstructive sleep apnea) Rash Seasonal allergies Type 2 diabetes mellitus with diabetic polyneuropathy, without long-term current use of insulin Vaccine counseling Vaginal dryness Venous insufficiency Surgical History Surgical History History of foot surgery Bilateral bunionectomy [id number] History of left knee replacement Family History Family History
--- NOTE | 2021-04-09 11:13 | PM.SD2 ---
Same Day Admit/Disch: HPI History of Present Illness Chief complaint: Chest Pain Narrative: Lucia Bruner is a 70 year old female with a history of high cholesterol, hypertension, diabetes, who presents emergency room with left shoulder pain. Patient states in November 2028 she was painting her house and injured her left shoulder. At that time she took ibuprofen with improvement of her symptoms. She has not had any issues until just recently when she began having more left shoulder pain with certain movements. Specifically she has pain that wakes her up in the middle the night when she turns on her left side. She has severe left shoulder pain with radiation of pain into her left chest. Usually when she is woken up due to severe pain she stands up and walks into her living room where she is able to take some deep breath and control her pain. She denies any chest pain to palpation, deep inspiration, chest pain when walking around exerting herself. She denies any nausea, vomiting, diaphoresis, lightheadedness, dizziness, palpitations. She was prescribed gabapentin by her primary care doctor and has not helped with the symptoms overnight. She has not taking any other medications for this pain. She denies any pain during the day when she is walking around or doing other activities. Just at night when she rolls onto her left shoulder while sleeping. Patient denies any history of neck or back issues. Denies any history of heart problems. Sometimes she reports some intermittent left biceps spasming. The patient believes this is her shoulder and denies any of this concerning her as if it is her heart. She has been told she has ELIZABETH but has not used his CPAP in a while because she could not tolerate it. The patient states sometimes due to the intensity of her pain she begins to her ?hyperventilate?, but denies any other types of trouble breathing, cough. She states she just began to ?panic breathing . She denies any fevers, chills, abdominal pain, leg swelling, calf pain, or any other symptoms at this time. Initial vitals showed stable blood pressure to 138/89, normal heart rate 92 beats per minute, respiratory rate normal, oxygen saturation 99% on room air and afebrile. Initial labs showed slight leukocytosis at 10,800, normal differential, normal coag panel other than elevation to D-dimer 1.46. CMP normal other than glucose slightly elevated 150. Troponin negative x3. Chest x-ray showed no acute cardiopulmonary disease. CTA chest was completed due to elevated D-dimer and possible chest pain symptoms which showed no pulmonary embolism. The cadastral surveyor was consulted and evaluated the patient at bedside with myself. We decided this all seems your lead to a possible to a torn rotator cuff. We recommend her to continue taking gabapentin at night and ibuprofen/Tylenol as needed for symptoms. Follow-up with her orthopedic surgeon and primary care provider within 1 week for further evaluation. She may need physical therapy. At this time with negative troponins, normal telemetry, no EKG changes, noncardiac related chest pains symptoms we are clearing her for discharge. The patient and daughter understand agree with plan all questions answered. Return to ER warnings given. Patient discharged in stable condition. [facility] Past Medical History Medical History Deaf, nonspeaking 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 Dyslipidemia Essential hypertension GERD (gastroesophageal reflux disease) Nasal septum ulceration Obesity (BMI 30.0-34.9) Obesity (BMI 30.0-34.9) ELIZABETH (obstructive sleep apnea) ELIZABETH (obstructive sleep apnea) Rash Seasonal allergies Type 2 diabetes mellitus with diabetic polyneuropathy, without long-term current use of insulin Vaccine counseling Vaginal dryness Venous insufficiency Surgical History Surgical History (Reviewed 04/09/21 @ 13:48 by Jeana Rascon
--- NOTE | 2021-04-09 14:12 | PC.NURSE ---
04/09/21 13:10 Patient discharged to home today. Discharge instructions were given with an translator interpreter. Patient had no further questions at this time.
== END 2021-04-09 13:10 | disposition home or self-care (01) ==
LOC: ANHED 03:42 → ANHIMU 03:51
PROVIDERS: Admitting Provider Internal Medicine; Emergency Provider Emergency Medicine; PCP Internal Medicine; Visit Provider Internal Medicine Nephrology
DX: R07.9 Chest pain, unspecified (principal); M25.512 Pain in left shoulder; I10 Essential (primary) hypertension; E78.5 Hyperlipidemia, unspecified; K21.9 Gastro-esophageal reflux disease without esophagitis; G47.33 Obstructive sleep apnea (adult) (pediatric); E11.42 Type 2 diabetes mellitus with diabetic polyneuropathy; E78.00 Pure hypercholesterolemia, unspecified; I87.2 Venous insufficiency (chronic) (peripheral); E66.9 Obesity, unspecified; Z68.32 Body mass index [BMI] 32.0-32.9, adult; Z79.84 Long term (current) use of oral hypoglycemic drugs; Z79.82 Long term (current) use of aspirin
CPT/HCPCS: 36415; 71045; 71275; 80053; 84484; 85025; 85380; 85610; 85730; 93005; 96372; 99285; A9270; G0378; J1650; Q9967

== ENCOUNTER → 2021-07-04 03:14 | Outpatient (CLI) | payer OTHER, SELFPAY ==
[2021-07-04 13:19] LABS: Influenza Control Positive
[2021-07-04 20:05] LABS: SARS-CoV-2 RNA PCR Negative
== END ==
PROVIDERS: PCP Internal Medicine; Visit Provider Internal Medicine
DX: R09.89 Other specified symptoms and signs involving the circulatory and respiratory systems (principal); Z20.822 Contact with and (suspected) exposure to COVID-19
CPT/HCPCS: 87804; C9803; U0003; U0005

== ENCOUNTER 2021-07-27 14:00 | Outpatient (CLI) | payer OTHER, SELFPAY ==
--- NOTE | ~2021-07-27 | XR_ITS ---
XR shoulder LT 1V DATE: 07/27/2021 14:18 INDICATION: Left shoulder pain. No known injury. TECHNIQUE: Single AP view COMPARISON: None FINDINGS: Moderate osteopenia is suggested. No fracture or dislocation, periosteal reaction or bone destruction of the left shoulder abnormal sof t tissue calcification is noted. There is mild degenerative change at the acromioclavicular and gleno humeral joints. IMPRESSION: Osteopenia Mild degenerative change Reviewed, dictated and finalized at location B. ADING MACHINE FEEDER AUTOMATIC
--- NOTE | ~2021-07-27 | XR_ITS ---
XR chest 2V DATE: 07/27/2021 14:18 INDICATION: Cough TECHNIQUE: PA and lateral views COMPARISON: 04/09/2021 CT pulmonary scan FINDINGS: Normal heart size. Is aortic arch calcification and mild aortic unfolding. No hilar or medi astinal enlargement. No pulmonary infiltrate or consolidation, pleural effusion or pulmonary vascular congestion or pneumo thorax. Degenerative changes of the thoracic and lumbar spine. IMPRESSION: No active cardiopulmonary disease Reviewed, dictated and finalized at location B. WARE EDUCATOR
== END 2021-07-27 14:01 | disposition home or self-care (01) ==
LOC: ANHIMG 14:02
PROVIDERS: PCP Internal Medicine; Visit Provider Internal Medicine
DX: M85.812 Other specified disorders of bone density and structure, left shoulder (principal); R05.9 Cough, unspecified; M47.815 Spondylosis without myelopathy or radiculopathy, thoracolumbar region
CPT/HCPCS: 71046; 73020

== ENCOUNTER 2021-09-11 14:10 | Outpatient (CLI) | payer OTHER, SELFPAY ==
--- NOTE | ~2021-09-11 | MM_ITS ---
EXAMINATION: MM screening kojo BI w kira HISTORY: Screening TECHNIQUE: Craniocaudal and mediolateral oblique 3-D tomosynthesis images were obtained and synthetic 2-D images were generated. CAD analysis was submitted and interpreted. COMPARISON: Comparison to multiple prior studies sequentially, with oldest reviewed study dated 08/21. BREAST PARENCHYMAL COMPOSITION: There are scattered areas of fibroglandular density. FINDINGS: There are stable bilateral breast asymmetries. There is no evidence of suspicious mass, isai cification, or architectural distortion to suggest malignancy in either breast. There has been no berry picious interval change. IMPRESSION: 1. No mammographic evidence of malignancy. 2. Recommend routine screening mammography in one year. BI-RADS Category 2: Benign finding(s). Reviewed, dictated and finalized at location A. ETS ASSEMBLER
== END 2021-09-11 14:11 | disposition home or self-care (01) ==
LOC: ANHIMG 14:12
PROVIDERS: PCP Internal Medicine; Visit Provider Internal Medicine
DX: Z12.31 Encounter for screening mammogram for malignant neoplasm of breast (principal)
CPT/HCPCS: 77063; 77067

== ENCOUNTER 2022-02-23 16:10 | Emergency (ER) | payer OTHER, SELFPAY ==
[2022-02-23] VITALS (18 sets, daily range): BP systolic 120–155; BP diastolic 71–84; PULSE 72–102; RESP 14–22; TEMP 36.3; O2SAT 98–100
--- NOTE | ~2022-02-23 | CT_ITS ---
EXAMINATION: CT abdomen pelvis w con DATE: 02/23/2022 18:18 INDICATION: Epigastric abdominal pain. TECHNIQUE: Computed tomography (CT) of the abdomen and pelvis was performed with 100 mL Omnipaque 300 intravenous contrast. Automated exposure control and iterative reconstruction technique were employe d. The dose-length product was 1034.73 mGy-cm. COMPARISON: CT abdomen and pelvis 09/16/2020 FINDINGS: The visualized portions of the lung bases demonstrate mild atelectasis. No pleural effusion . The heart size is normal. No pericardial effusion. There is diffuse hepatic steatosis. The gallblad tony, spleen, pancreas, adrenal glands, and kidneys are normal. There is diverticulosis of the colon w ithout evidence of diverticulitis. There are no dilated loops of bowel. The appendix is normal. There are no pathologically enlarged lymph nodes. There is no free intraperitoneal fluid. There is a total right hip arthroplasty. There is severe lumbar spondylosis and moderate thoracic spondylosis. IMPRESSION: 1. Diffuse hepatic steatosis. Reviewed, dictated and finalized at location A.
--- NOTE | ~2022-02-23 | XR_ITS ---
EXAMINATION: XR chest 2V DATE: 02/23/2022 17:26 INDICATION: Chest pain. TECHNIQUE: Frontal and lateral views of the chest were obtained. COMPARISON: Chest 2 views 07/27/2021 FINDINGS: The chest demonstrates clear lungs without pneumonia, pleural effusion, or pneumothorax. Th e heart size is normal. IMPRESSION: 1. No acute cardiopulmonary disease. Reviewed, dictated and finalized at location A.
--- NOTE | 2022-02-23 16:40 | ECG_ITS ---
Measurements Intervals [place] Rate: 83 P: 43 [place]: 168 QRS: -36 QRSD: 88 T: 13 QT: 362 QTc: 426 Interpretive Statements SINUS RHYTHM LEFT AXIS DEVIATION LOW VOLTAGE- PRECORDIAL LEADS BORDERLINE R WAVE PROGRESSION, ANTERIOR LEADS BASELINE ARTIFACT- I, II, III, AVR, AVL, AVF, V1, V6 BORDERLINE ECG Electronically Signed On 02-23-2022 16:51:03 CDT by Femi Moy D.O.
[2022-02-23 17:01] LABS: Basophils Absolute Auto 0.1 K/mm3 (0.0-0.1); Basophils Percent Auto 0.7 % (0.2-1.2); Eosinophils Absolute Auto 0.3 K/mm3 (0-0.3); Eosinophils Percent Auto 2.8 % (0-4.4); Hematocrit 41.8 % (37.0-47.0); Hemoglobin 13.2 g/dL (12.0-15.0); Immature Granulocyte Absolute 0.02 K/mm3 (0.00-0.031); Immature Granulocyte Percent A 0.2 % (0-0.5); Lymphocytes Absolute Auto 2.75 K/mm3 (0.9-3.2); Lymphocytes Percent Auto 29.2 % (18.3-44.2); Mean Corpuscular HGB Conc 31.6 g/dl (32-36); Mean Corpuscular Hemoglobin 28.2 pg (26-34); Mean Corpuscular Volume 89.3 fl (80-100); Mean Platelet Volume 9.8 fl (7.4-10.4); Monocytes Absolute Auto 0.7 K/mm3 (0.1-0.6); Monocytes Percent Auto 6.9 % (2.6-8.5); Neutrophils Absolute Auto 5.7 K/mm3 (1.3-6.7); Neutrophils Percent Auto 60.2 % (45.5-73.1); Platelet Count Result 299 k/mm3 (150-375); Red Blood Count 4.68 M/mm3 (4.2-5.4); Red Cell Distribution Width 14.1 % (11.5-14.5); White Blood Count 9.4 K/mm3 (4.5-10.0)
[2022-02-23 17:11] LABS: Alanine Aminotransferase 26 U/L (6-35); Albumin Level 4.7 g/dL (3.5-5.1); Alkaline Phosphatase 78 U/L (38-126); Anion Gap 8 mmol/L (8-16); Aspartate Amino Transferase 36 U/L (14-36); Bilirubin,Total 0.7 mg/dL (0.2-1.3); Blood Urea Nitrogen 13 mg/dL (7-17); Calcium 9.4 mg/dL (8.4-10.2); Carbon Dioxide 25 mmol/L (22-30); Chloride 107 mmol/L (98-107); Estimated CRCL calculation 70 ml/min; Estimated Glomerular Filt Rate > 60; Glucose 98 mg/dL (65-110); Lipase 72 U/L (23-300); Potassium 4.1 mmol/L (3.4-5.0); Sodium 140 mmol/L (137-145)
[2022-02-23 17:21] LABS: Partial Thromboplastin Time 26.5 SECONDS (22.3-36.8)
[2022-02-23 17:38] LABS: Troponin I < 0.012 ng/mL (0.000-0.034)
--- NOTE | 2022-02-23 18:27 | ED.GENADULT ---
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 Patient states on Saturday she developed severe indigestion when she tried to eat. She reports she initially regurgitated her food. She has been having burning epigastric pain up into her chest when eating and drinking. She reports pain is worse with swallowing. She had burning with drinking water, eat food. She felt better with eating a popsicle. She takes omeprazole daily for 10 years. She has taken multiple dose of omeprazole without improve. She denies nausea, vomiting , fever, chills. She denies melena or blood in her stool. She had 3 stools yesterday but they were her normal. Related Data Home Medications Medication Instructions Recorded Confirmed aspirin 81 mg tablet,delayed 81 mg PO DAILY 06/01/19 12/25/21 release (Adult Low Dose Aspirin) calcium phosphate 250 mg-vit D3 1 tablet PO BID 03/17/20 12/25/21 12.5 mcg (500 unit) chewable tablet (Citracal-D3 Gummies) doxycycline hyclate 100 mg capsule 100 mg PO DAILY 12/25/21 12/25/21 metronidazole 1 % topical cream 1 applic topical DAILY 12/25/21 12/25/21 Allergies Allergy/AdvReac Type Severity Reaction Status Date / Time Penicillins Allergy Unknown Rash/ITCHIN Verified 02/23/22 16:57 G Review of Systems Review of Systems: CONSTITUTIONAL: Denies fever, chills, or sweats. EYES: Denies visual changes, redness, or discharge. ENT: Denies rhinorrhea, congestion, sore throat, or otalgia. CARDIOVASCULAR: Denies, palpitations, or edema. RESPIRATORY: Denies cough or dyspnea. GASTROINTESTINAL: Denies nausea, vomiting, or diarrhea.reports abdominal pain GENITOURINARY: Denies dysuria or hematuria. SKIN: Denies rash or itching. MUSCULOSKELETAL: Denies back pain, joint pain, or myalgia. NEUROLOGIC: Denies weakness. She reports peripheral neuropathy in her feet. PSYCHIATRIC: Denies anxiety or depression. All systems reviewed & are unremarkable except as noted in HPI and below PMFSH Past Medical History Medical History (Updated 02/23/22 @ 19:38 by Katie Newsome MD) Arthritis Deaf, nonspeaking 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 Dyslipidemia Essential hypertension GERD (gastroesophageal reflux disease) Nasal septum ulceration Obesity (BMI 30.0-34.9) Obesity (BMI 30.0-34.9) ELIZABETH (obstructive sleep apnea) ELIZABETH (obstructive sleep apnea) Rash Seasonal allergies Type 2 diabetes mellitus with diabetic polyneuropathy, without long-term current use of insulin Vaccine counseling Vaginal dryness Venous insufficiency Surgical History Surgical History (Updated 02/23/22 @ 18:34 by Katie Newsome MD) History of foot surgery Bilateral bunionectomy [id number] History of left knee replacement History of right hip replacement Family History Family History Mother Diabetes mellitus Father Asthma Family history of chronic obstructive pulmonary disease Other Arthritis Cerebrovascular accident Depression Family history of alcoholism Family history of obesity High cholesterol Social History Social History Social History: Lives alone with her dog. Has 3 children. Smoking status: Never smoker Second hand tobacco smoke exposure: Yes Additional smoking assessment comments: DENIES ANY FORM OF TOBACCO USE Alcohol intake: never Substance use: never Substance use type: does not use Spiritual care concerns: Yes (episcipalian) Exam Narrative: GENERAL: Well-appearing
[2022-02-23] MEDS: SODIUM CHLORIDE 0.9% IV 1,000 ML 999 ML IV CONT (18:32)
[2022-02-23] MEDS: BELLADONNA ALK/PHENOB ELIX 10 ML, MAG HYDROX/ALUMINUM HYD/SIMETH 30 ML, LIDOCAINE HCL 2... PO (19:17)
[2022-02-23 20:27] LABS: Troponin I < 0.012 ng/mL (0.000-0.034)
== END 2022-02-23 20:13 | disposition home or self-care (01) ==
PROVIDERS: Emergency Medicine; Emergency Provider General Practice
DX: K21.9 Gastro-esophageal reflux disease without esophagitis (principal); R10.13 Epigastric pain; H91.3 Deaf nonspeaking, not elsewhere classified; E11.42 Type 2 diabetes mellitus with diabetic polyneuropathy; I10 Essential (primary) hypertension; E78.5 Hyperlipidemia, unspecified; M16.0 Bilateral primary osteoarthritis of hip; G47.33 Obstructive sleep apnea (adult) (pediatric); M19.90 Unspecified osteoarthritis, unspecified site; E66.9 Obesity, unspecified; Z68.29 Body mass index [BMI] 29.0-29.9, adult; Z96.652 Presence of left artificial knee joint; Z96.641 Presence of right artificial hip joint; Z77.22 Contact with and (suspected) exposure to environmental tobacco smoke (acute) (chronic); K76.0 Fatty (change of) liver, not elsewhere classified; Z79.84 Long term (current) use of oral hypoglycemic drugs; Z79.82 Long term (current) use of aspirin
CPT/HCPCS: 36415; 71046; 74177; 80053; 83690; 84484; 85025; 85610; 85730; 93005; 96365; 99284; A9270; J0131; J7030; Q9967

== ENCOUNTER 2022-02-26 08:35 | Outpatient (CLI) | payer OTHER, SELFPAY ==
--- NOTE | ~2022-02-26 | DEXA_ITS ---
Bone Density Report Name: MARCEL MOREAU Age: 71 Sex: Female Ethnicity: White Date of : 1950 Indication: postmenopausal; screening for osteoporosis; Referring Provider: MAKAYLA FIGUEROA Study: Bone densitometry was performed. Exam Date: February 26, 2022 Accession number: [id number] Bone Density: Region BMD T-score Z-score Classification AP Spine(L1-L4) 1.044 0.0 2.1 Normal Femoral Neck (Left) 0.781 -0.6 1.2 Normal Total Hip (Left) 0.935 -0.1 1.5 Normal World Health Organization criteria for BMD impression classify patients as: Normal (T-score at or above -1.0), Osteopenia (T-score between -1.0 and -2.5), or Osteoporosis (T-score at or below -2.5). 10-year Fracture Risk: FRAX not reported because: All T-scores for Spine Total, Hip Total, Femoral Neck at or above -1.0 Clinical Information Provided by Patient: Has used the following medications: Vitamin D, Calcium Patient maximum height was 65 Menopause Age: 54 No regular weight bearing exercise Drinks caffeinated beverages Onset of menses at age 14 Number of children 3 Impression: The patient has normal bone mass. Discussion: BONE DENSITY IS ABOVE THE MINIMUM DESIRABLE LEVEL AT ALL SKELETAL SITES TESTED. This patient?s bone mineral density is above the minimum desirable level (T-score -1.0 or better) at all sites measured. The patient should follow a healthful lifestyle (good nutrition with adequate calcium and vitamin D, and appropriate weight-bearing exercise). Follow-Up: Consider repeating this study in 5 years or sooner if there is some new clinical indication. Reported by: LATESHA on 02/26/2022 8:58:00 AM. Reviewed, dictated and finalized at location Mary AUGUSTIN
== END 2022-02-26 08:36 | disposition home or self-care (01) ==
LOC: ANHIMG 08:36
PROVIDERS: PCP Family Medicine Sports Medicine; Visit Provider Internal Medicine
DX: Z78.0 Asymptomatic menopausal state (principal)
CPT/HCPCS: 77080

== ENCOUNTER 2022-04-24 13:28 | Emergency (ER) | payer OTHER, SELFPAY ==
[2022-04-24 14:02] VITALS: BP 131/81; PULSE 86; RESP 16; TEMP 36.3; O2SAT 98
--- NOTE | 2022-04-24 14:14 | PC.NURSE ---
Pt is a low risk and does not need a sitter at this time per Dr. Lewis
--- NOTE | 2022-04-24 14:20 | ECG_ITS ---
Measurements Intervals [place] Rate: 78 P: 66 [place]: 159 QRS: -35 QRSD: 85 T: 17 QT: 360 QTc: 412 Interpretive Statements SINUS RHYTHM LEFT AXIS DEVIATION LOW QRS VOLTAGE IN PRECORDIAL LEADS POOR R WAVE PROGRESSION, ANTERIOR LEADS BASELINE ARTIFACT- I, II, III, AVR, AVL, AVF BORDERLINE ECG COMPARED TO ECG 02/23/2022 16:47:19 NO SIGNIFICANT CHANGES Electronically Signed On 04-24-2022 16:46:58 CDT by Femi Moy D.O.
[2022-04-24 14:46] LABS: Basophils Absolute Auto 0.1 K/mm3 (0.0-0.1); Basophils Percent Auto 0.8 % (0.2-1.2); Eosinophils Absolute Auto 0.2 K/mm3 (0-0.3); Eosinophils Percent Auto 2.5 % (0-4.4); Hemoglobin 13.1 g/dL (12.0-15.0); Immature Granulocyte Absolute 0.03 K/mm3 (0.00-0.031); Immature Granulocyte Percent A 0.3 % (0-0.5); Lymphocytes Absolute Auto 2.54 K/mm3 (0.9-3.2); Lymphocytes Percent Auto 28.6 % (18.3-44.2); Mean Corpuscular Hemoglobin 27.8 pg (26-34); Mean Corpuscular Volume 86.9 fl (80-100); Monocytes Absolute Auto 0.6 K/mm3 (0.1-0.6); Monocytes Percent Auto 7.1 % (2.6-8.5); Neutrophils Absolute Auto 5.4 K/mm3 (1.3-6.7); Neutrophils Percent Auto 60.7 % (45.5-73.1); Platelet Count Result 273 k/mm3 (150-375); Red Blood Count 4.72 M/mm3 (4.2-5.4); Red Cell Distribution Width 14.2 % (11.5-14.5); White Blood Count 8.9 K/mm3 (4.5-10.0)
[2022-04-24 15:08] LABS: Alanine Aminotransferase 24 U/L (6-35); Albumin Level 4.2 g/dL (3.5-5.1); Alkaline Phosphatase 88 U/L (38-126); Anion Gap 11 mmol/L (8-16); Aspartate Amino Transferase 29 U/L (14-36); Bilirubin,Total 0.5 mg/dL (0.2-1.3); Blood Urea Nitrogen 12 mg/dL (7-17); Calcium 9.5 mg/dL (8.4-10.2); Carbon Dioxide 24 mmol/L (22-30); Chloride 105 mmol/L (98-107); Estimated Glomerular Filt Rate > 60; Glucose 97 mg/dL (65-110); Potassium 3.8 mmol/L (3.4-5.0); Sodium 140 mmol/L (137-145)
--- NOTE | 2022-04-24 15:15 | PC.NURSE ---
Pt asking for pain medication for her shoulder. aware, Dr. Boyce will put in orders for Tylenol.
[2022-04-24 15:22] LABS: SARS-CoV-2 RNA PCR Negative
[2022-04-24] MEDS: ACETAMINOPHEN 500 MG TABLET 1000 MG PO (15:26)
[2022-04-24 15:45] LABS: Appearance Urine Clear (Clear); Bilirubin Urine Negative (Negative); Blood Urine Negative (Negative); Color Urine Yellow (Yellow); Glucose Urine UA Negative (Negative); Ketones Urine Negative (Negative); Leukocyte Esterase Ur 1+ LEU/UL (Negative); Nitrate Urine Negative (Negative); Protein Urine Negative (Negative); Urobilinogen Urine 0.2 mg/dL (<2.0); pH Urine 5.5 (5.0-9.0)
--- NOTE | 2022-04-24 15:47 | ED.PSYCH ---
HPI - Psych General Chief Complaint: Psychiatric Symptoms Stated Complaint: Anxiety, Depression Time Seen by Provider: 04/24/22 13:31 History of Present Illness HPI Narrative: Patient is a 71-year-old female with history of being hearing impaired who presents the ER with depression and suicidal ideation. Patient reports she lost her 3 years ago. She recently started dating over the last 2 months. She did meet another individual however during the courtship feelings began to change and he ended up ending his relationship with her today. He dropped some items off at her home. The patient reports she feels distraught and worthless. She spoke with her therapist at [facility] and was telling her that she feels like there is no point being alive and that she feels like she wants to end her own life. She has not felt like this way previously. She has never been hospitalized for mental health. Her counselor recommended she seek care at emergency department and be admitted to a psychiatric facility. Patient denies a plan to end her own life but that she does not trust herself due to her feelings of being distraught and upset. Related Data Home Medications Medication Instructions Recorded Confirmed aspirin 81 mg tablet,delayed 81 mg PO DAILY 06/01/19 12/25/21 release (Adult Low Dose Aspirin) calcium phosphate 250 mg-vit D3 1 tablet PO BID 03/17/20 12/25/21 12.5 mcg (500 unit) chewable tablet (Citracal-D3 Gummies) doxycycline hyclate 100 mg capsule 100 mg PO DAILY 12/25/21 12/25/21 metronidazole 1 % topical cream 1 applic topical DAILY 12/25/21 12/25/21 Allergies Allergy/AdvReac Type Severity Reaction Status Date / Time Penicillins Allergy Unknown Rash/ITCHIN Verified 02/23/22 16:57 G Review of Systems Review of Systems: All systems reviewed & are unremarkable except as noted in HPI and below Constitutional: Constitutional: Denies chills, Denies fatigue and Denies fever(s) ENT: Denies nasal congestion and Denies sore throat Cardiovascular: Cardiovascular: Denies chest pain, Denies rapid heart rate and Denies radiating jaw, neck or arm pain Gastrointestinal: Gastrointestinal: Denies abdominal pain, Denies nausea and Denies vomiting Psychiatric: Psychiatric: Reports depression, Denies homicidal ideation and Reports suicidal ideation [facility] Past Medical History Medical History (Updated 04/24/22 @ 20:26 by Maxim Lewis MD) Arthritis Deaf, nonspeaking 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 Dyslipidemia Essential hypertension GERD (gastroesophageal reflux disease) Nasal septum ulceration Obesity (BMI 30.0-34.9) Obesity (BMI 30.0-34.9) ELIZABETH (obstructive sleep apnea) ELIZABETH (obstructive sleep apnea) Rash Seasonal allergies Type 2 diabetes mellitus with diabetic polyneuropathy, without long-term current use of insulin Vaccine counseling Vaginal dryness Venous insufficiency Surgical History Surgical History (Updated 02/23/22 @ 18:34 by Katie Newsome MD) History of foot surgery Bilateral bunionectomy [id number] History of left knee replacement History of right hip replacement Family History Family History Mother Diabetes mellitus Father Asthma Family history of chronic obstructive pulmonary disease Other Arthritis Cerebrovascular accident Depression Family history of alcoholism Family history of obesity High cholesterol Social History Social History Social History: Lives alone with her dog. Has 3 children. Smoking status: Never smoker Second hand tobacco smoke exposure: Yes Additional smoking assessment comments: DENIES ANY FORM OF TOBACCO USE Alcohol intake: never Substance use: never Substance use type: does not use Spiritual care concerns: Yes (episcipalian) Exam Narrative: GENERAL: Crying and upset. we
--- NOTE | 2022-04-24 15:51 | PC.NURSE ---
Pt found standing in the hallway. Pt asking why her room doesn't have a tv or plug for her phone. Pt informed that this is for her safety as cords and wires may be a danger to patients in that room. Pt is allowed to have her belongings per Dr. Boyce. Pt understands and I have informed her that I will try to find a phone exhibits coordinator for her if her phone battery becomes low.
[2022-04-24 16:02] LABS: Add Urine Microscopic? YES; Mucus Urine Rare /lpf; RBC Urine 0-2 /hpf (0-2); Squamous Epithelial Cell Urine Occasional /hpf (Few)
[2022-04-24 16:05] LABS: Amphetamine Screen Urine Negative (Negative); Barbiturate Screen Urine Negative (Negative); Benzodiazepines Screen Urine Negative (Negative); Cannabinoid Screen Urine Negative (Negative); Cocaine Screen Urine Negative (Negative); Methadone Screen Urine Negative (Negative); Opiate Screen Urine Negative (Negative); Phencyclidine Screen Urine Negative (Negative)
[2022-04-24 16:13] LABS: Ethanol < 10 mg/dL (<10)
--- NOTE | 2022-04-24 16:49 | PC.NURSE ---
Pt is medically cleared. CRISIS called and Gifty from [place] reports someone will be out to assess the pt.
--- NOTE | 2022-04-24 20:26 | PC.NURSE ---
Pt coming out of room yelling to get staff attention requesting her discharge. Pt complaining no tv and she is bored in room. Pt informed we are working on discharge paperwork at this time.
== END 2022-04-24 20:33 | disposition home or self-care (01) ==
PROVIDERS: Emergency Provider Emergency Medicine; PCP Family Medicine Sports Medicine
DX: F32.9 Major depressive disorder, single episode, unspecified (principal); Z20.822 Contact with and (suspected) exposure to COVID-19; M19.90 Unspecified osteoarthritis, unspecified site; I10 Essential (primary) hypertension; K21.9 Gastro-esophageal reflux disease without esophagitis; E11.9 Type 2 diabetes mellitus without complications
CPT/HCPCS: 36415; 80053; 80307; 81001; 84443; 85025; 87086; 93005; 99284; A9270; C9803; U0003; U0005

== ENCOUNTER 2023-05-30 08:04 | Outpatient (CLI) | payer OTHER, SELFPAY ==
--- NOTE | ~2023-05-30 | MM_ITS ---
EXAMINATION: MM screening kojo BI w kira HISTORY: Screening mammogram TECHNIQUE: Craniocaudal and mediolateral oblique 3-D tomosynthesis images were obtained and synthetic 2-D images were generated. CAD analysis was submitted and interpreted. COMPARISON: September 11, 2021, April 05, 2020 bilateral screening mammogram examinations BREAST PARENCHYMAL COMPOSITION: There are scattered areas of fibroglandular density. FINDINGS: Stable fibroglandular asymmetry and scattered bilateral benign calcifications are again not ed. There is no evidence of suspicious mass, calcification, or architectural distortion to suggest ma lignancy in either breast. There has been no suspicious interval change. IMPRESSION: 1. Benign findings. No mammographic evidence of malignancy. 2. Recommend routine screening mammography in one year. BI-RADS Category 2: Benign finding(s). Reviewed, dictated and finalized at location A.
== END 2023-05-30 08:05 | disposition home or self-care (01) ==
PROVIDERS: PCP Family Medicine Sports Medicine; Visit Provider Family Medicine Sports Medicine
DX: Z12.31 Encounter for screening mammogram for malignant neoplasm of breast (principal)
CPT/HCPCS: 77063; 77067

== ENCOUNTER 2024-10-07 10:20 | Emergency (ER) | payer MEDICARE, SELFPAY ==
--- NOTE | ~2024-10-07 | CT_ITS ---
CT abdomen pelvis w con Ordering provider: Joey Tinsley MD History: 74 years Female with . RLQ pain . Comparison: None. Technique: CT abdomen and pelvis with IV and without oral contrast. Automated exposure control and it erative reconstruction technique were employed. The dose-length product was 682.16 mGy-cm. 100 mL Omn ipaque 350 was given IV. Findings: VISUALIZED LOWER CHEST: Normal. UPPER ABDOMINAL ORGANS: Liver: Fat infiltration. Gallbladder: Normal. Spleen: Normal. Stomach/duodenum: Normal. Pancreas: Normal. Adrenals: Normal. Kidneys: Normal. PELVIC ORGANS: The bladder is normal. BOWEL AND MESENTERY: Colon: No evidence of diverticulitis. Normal appendix. Small Bowel: Fluid is seen in the distal ileum lobes which may indicate diarrhea or enteritis. Clinic al correlation advised. No obstruction. Peritoneum/mesentery: No free air or free fluid. No mesenteric lymphadenopathy. Small mesenteric lymp h nodes the largest measures 7 mm.. RETROPERITONEUM: Mild atheromatous disease of the abdominal aorta. No retroperitoneal lymphadenopat hy. MUSCULOSKELETAL: Superficial soft tissues: The superficial soft tissues are normal. Bones: Age appropriate degenerative changes of the spine. Bilateral sacroiliitis. Right hip arthropla sty. IMPRESSION: 1. No evidence of appendicitis, diverticulitis or intestinal obstruction. 2. Possible enteritis versus diarrhea. Clinical correlation advised. 3. Fat infiltration of the liver. Reviewed, dictated and finalized at location A. NESS DEVELOPMENT REPRESENTATIVE
[2024-10-07 10:21] VITALS: BP 155/74; PULSE 104; RESP 16; TEMP 36.3; O2SAT 97
--- OUTSIDE RECORDS SUMMARY | 2024-10-07 11:34 | XMS_ITS | Referral Summary ---
Author Organization [facility] Address [address] [place] [address] Care Team Providers Care Manager Performance Improvement Name Role Phone Gifty Willard Primary Care Provider Unavailabl e Gifty Willard Unavailable Unavailable Source Comments [facility],non-owned Affiliates and Associated Physician Practices is amultiple site organization consisting of ambulatory clinics and hospital sitesin [place], [place], [place] and [place]. This disclosure is being madepursuant to the Care Everywhere program and may not contain all information available regarding this patient. Last updated 18.[facility] Allergies Active Allergy Reactions Criticality Noted Date Comments Penicillins Unknown 12/21/2010 Penicillin G Rash Medium 04/24/2016 Medications * Be aware that medications may not be up to date on this document. Alwaysverify current medications with the patient. Medication Sig Dispensed Refills Start Date End Date Status semaglutide (RYBELSUS) 3 MG tablet Take 1 (one) tablet by mouth once daily Active lisinopril (PRINIVIL; ZESTRIL) 20 MG tablet Take 1 (one) tablet by mouth once daily Active aspirin (ASPIRIN) 81 MG chew tablet Take 1 (one) tablet by mouth once daily Active clobetasol emollient (TEMOVATE E) 0.05 % cream Apply to affected area 3 times daily Active atorvastatin (Lipitor) 20 MG tablet Take 1 (one) tablet by mouth once daily 01/11/2022 Active doxycycline hyclate (Vibramycin) 100 MG capsule Take 1 (one) capsule by mouth once daily Active gabapentin (Neurontin) 300 MG capsule Take 2 (two) capsules by mouth once daily 03/09/2021 Active nystatin (Mycostatin) 180233 UNIT/GM ointmentIndications :Lichen sclerosus,Vulvar itching Use with the Triamcinolone ointment 0.1% to vulvar skin every other day. 60 g 1 04/16/2024 Active triamcinolone acetonide (Kenalog) 0.1 % ointmentIndications :Lichen sclerosus,Vulvar itching Use with the nystatin ointment to vulvar skin every other day 60 g 1 04/16/2024 Active Active Problems Problem Noted Date Diagnosed Date Mild intermittent asthma without complication Pain in shoulder region after shoulder replaceme nt 03/21/2023 10/14/2023 Overview (10/14/2023): Last Assessment & Plan: Patient's shoulder pain is improving. She notes that things are doing much better. We will continue to monitor this. She has deferred additional therapy as things are getting better. She reports her surgeon is happy with how she is doing Varicose veins of both lower extremities with pa in 03/20/2023 10/14/2023 Overview (10/14/2023): Patient notes occasional discomfort. She wants to see somebody for evaluation. Referral to vascular given. Discussed use of compression socks Last Assessment & Plan: Patient was previously evaluated by vascular. Patient denies any current major concerns about her calf veins. No signs of current ulceration. Continue supportive care with compression socks. We will monitor Angioneurotic edema 03/06/2023 03/06/2023 Anal fissure 03/06/2023 03/06/2023 Contact dermatitis and other eczema 03/06/2023 03/06/2023 Bunion 03/06/2023 03/06/2023 De Quervain's tenosynovitis 03/06/2023 08/0 09/2022 Other diseases of lung 03/06/2023 Pain in joint, multiple sites 03/06/2023 Pure hypercholesterolemia 01/18/2023 08/02/ 2023 Gastroesophageal reflux disease 2022 Overview (08/23/2022): continue rx. pt now agreeable to see gi. referral given Last Assessment & Plan: Continue ppi and no NSAIDS egd Moderate episode of recurrent major depressive d isorder 04/30/2022 S/P reverse total shoulder arthroplasty, left Essential hypertension 01/24/2022 HLD (hyperlipidemia) 01/24/2022 Lichen sclerosus et atrophicus of the vulva 01/04 ELIZABETH (obstructive sleep apnea) 01/24/2022 Type 2 diabetes mellitus wit h diabetic polyneuropathy, without long-term current use of insulin 01/24/2022 History of sleep apnea 01/24/2022 Overview (03/06/2023): Improved with weight loss Primary osteoarthritis of left shoulder 01/03/20 Overview (03/08/2022): planning shoulder replacement with ortho. They want MRI to help guide surigcal planning. Pt to work with specialist to get approved Status post total replacement of right hip 02/16 Left knee pain 08/13/2014 Follow-up examination,surger y LEFT KNEE MANIPULATION 02-11-14 01/22/2014 Hx of total knee arthroplasty 01/22/2014 Stiffness of knee joint, left 01/22/2014 Lumbosacral spondylosis without myelopathy 12/0403/06/2023 Osteoarthritis of lumbar spine 12/04/2013 0 03/06/2023 Personal history of fall 12/04/2013 023 Cataracts, bilateral 07/22/2013 03/06/2023 DM (diabetes mellitus) type II controlled, neurological manifestation 07/22/2013 03/06/2023 Deaf 07/22/2013 03/06/2023 Overview (03/06/2023): Requires sign language interpretor for appts Osteoarthrosis 07/22/2013 03/06/2023 Other specified chronic obstructive airways dise ase 05/11/2013 Overview (05/06/2023): May 2023 Regulatory Update Carpal tunnel syndrome 03/14/2012 Knee joint replacement by other means R TKR 09/21/2011 Aftercare following joint replacement R TKR 09/21/2011 Sinusitis, chronic 09/19/2011 Asthma 09/19/2011 Abnormal CXR (chest x-ray) 09/19/2011 Insomnia 09/19/2011 Allergy 11/29/2010 03/06/2023 Anxiety state 10/20/2010 03/06/2023 Low back pain 01/09/2008 03/06/2023 Degeneration of cervical intervertebral disc 07/2007 Depressive disorder, not elsewhere classified Depression, major, in remission 12/05/2005 Rosacea 11/18/2003 Immunizations Name Administration Dates Next Due INFLUENZA VACCINE 05/19/2018 INFLUENZA VACCINE, ADJUVANTE D, TRIV. (FLUAD TRIVALENT; 65Y+) (AIIV3) 05/20/2018 INFLUENZA VACCINE, HIGH-DOSE , QUADR. (FLUZONE HIGH-DOSE QUADRIVALENT; 65Y+), 0.7 ML (HD-IIV4) 05/24/2021,05/23/2020 PNEUMOCOCCAL PPSV23 08/10/2021 Zoster Hzv Vacc Recombinant Inj Im 05/29/2019, Social History Tobacco Use Types Packs/Day Years Used Date Smoking Tobacco: Never Smokeless Tobacco: Never Tobacco Cessation:Counseling Given: Not Answered Alcohol Use Standard Drinks/Week Comments No 0 (1 standard drink = 0.6 oz pur e alcohol) Sex and Gender Information Value Date Recorded Sex Assigned at Not on file Gender Identity Not on file Sexual Orientation Not on file Last Filed Vital Signs Vital Sign Reading Time Taken Comments Blood Pressure 120/70 04/16/2024 10:31 AM CDT Pulse 79 07/04/2018 12:32 PM GAMBLING MONITOR Temperature 36.9 C (98.5 F) 11/11/2018 11:00 AM CDT Respiratory Rate 18 07/04/2018 12:32 PM GAMBLING MONITOR Oxygen Saturation 98% 07/04/2018 12:32 PM GAMBLING MONITOR Inhaled Oxygen Concentration - - Weight 78.9 kg (174 lb) 04/16/2024 10:31 AM CDT Height 165.1 cm (5' 5 ) 04/16/2024 10:31 AM CDT Body Mass Index 28.96 04/16/2024 10:31 AM CDT Plan of Treatment Upcoming Encounters Date Type Department Care Team (Late st Contact Info) Description 10/15/2024 10:10 AM CDT Office Visit [facility] - ENVIRONMENTAL SERVICES WORKER [address] [place] [address] Isela Glasgow, OIL DEVELOPER-CHIEF POWER DISPATCHER [address] [place] [address] Procedures Procedure Name Priority Date/Time Associated Diagnosis Comments DEXA BONE DENSITY 2 SITES 02/26/2022 BASIC METABOLIC PANEL (CALCIUM TOTAL) STAT 07/04/2018 4:11 PM GAMBLING MONITOR from Last 3 Months or Most Recently Relevant to Health Maintenance Results * DEXA BONE DENSITY 2 SITES (02/26/2022) Anatomical Region Laterality Modality Other 02/26/2022 Narrative 02/26/2022 Ordered by an unspecified provider. Scanned Document DEXA ORDERABLES * BASIC METABOLIC PANEL (CALCIUM TOTAL) (07/04/2018 4:11 PM GAMBLING MONITOR) BUN 11 7 - 26 mg/dL 07/04/2018 4:36 PM [facility] Creatinine 0.7 0.6 - 1.2 mg/dL 07/04/2018 4:36 PM [facility] Sodium 138 136 - 145 mmol/L 07/04/2018 4:36 PM [facility] Potassium 3.9 3.5 - 4.5 mmol/L 07/04/2018 4:36 PM [facility] Chloride 103 98 - 107 mmol/L 07/04/2018 4:36 PM GAMBLING MONITOR [facility] CO2 25 22 - 29 mmol/L 07/04/2018 4:36 PM [facility] Glucose 88 70 - 115 mg/dL 07/04/2018 4:36 PM [facility] Calcium 9.5 8.4 - 10.2 mg/dL 07/04/2018 4:36 PM [facility] Anion Gap 14 8 - 18 07/04/2018 4:36 PM [facility] BUN/Creatinine Ratio 16 7 - 23 07/04/2018 4:36 PM [facility] Osmolality Calculated 285 270 - 300 mOsm/kg 07/04/2018 4:36 PM [facility] eGFR >60 >60 mL/min/1.7 3 m2 07/04/2018 4:36 PM [facility] Blood BLOOD SPECIMEN / Unknown Venipuncture / Unknown 07/04/2018 4:11 PM GAMBLING MONITOR 07/04/2018 4:16 PM [facility] Usha Anguiano PA-C LAB - CHEMI STRY ORDERABLES [facility] [address] [phone] from Last 3 Months or Most Recently Relevant to Health Maintenance Administered Medications Advance Directives Documents on File Type Date Recorded Patient Client Resolution Specialist Expl anation Adv Directive/Living Will/POA 02/11/2014 5:15 AM LIVING YU * FULL RESUSCITATION (Latest Code Status on File) Date Activated Date Inactivated Comments 04/11/2011 9:07 AM 04/15/2011 12:59 AM Care Teams Manager Performance Improvement Relationship Specialty Start Date End Date Gifty Willard PCP - General Family Medicine 01/23/24 Gifty Willard Primary Care Provider Family Medicine 01/23/24
--- OUTSIDE RECORDS SUMMARY | 2024-10-07 11:34 | XMS_ITS | Encounter Summary ---
Author Organization [facility] Address [address] [place] [address] Care Team Providers Care Head Turning Machine Operator Name Role Phone Gifty Willard MD Primary Care Provider Girma Hidalgo MD Unavailable [phone] Rogers Humphries MD, Crystal Unavailable [phone] Encounter Details Date Type Department Care Team (Late st Contact Info) Description 03/06/2022 MyChart Message Enc [facility] - [place] [address] [place], [place] [id number] [phone] Girma Hidalgo MD [address] [address] [place] [address] Labs Social History Tobacco Use Types Packs/Day Years Used Date Smoking Tobacco: Never Smokeless Tobacco: Never Comments:non smoker Alcohol Use Standard Drinks/Week Comments Never 0 (1 standard drink = 0.6 oz pur e alcohol) NA PHQ-2 Answer Date Recorded PHQ-2 Score - If the patient scores above 3, please move on to questions 3-9 0 01/02/2022 Comments No Sex and Gender Information Value Date Recorded Sex Assigned at Not on file Legal Sex Female 2:18 PM CDT Gender Identity Not on file Sexual Orientation Not on file COVID-19 Exposure Response Date Recorded In the last 10 days, have ruben muir been in contact with someone who was confirmed or suspected to have Coronavirus/COVID-19? No / Unsure 03/06/2022 10:25 AM CDT documented as of this encounter Functional Status * RETIRED Are you deaf or do you have serious difficulty hearing Answer Date of Assessment Author Status Yes 02/18/2021 4:53 PM CDT Activ e * RETIRED Are you blind or do you have serious difficulty seeing, even when wearing glasses? Answer Date of Assessment Author Status No 02/18/2021 10:00 PM CDT Acti ve * Do you have serious difficulty walking or climbing stairs? Answer Date of Assessment Author Status Yes 02/18/2021 10:00 PM CDT Lamar Cramer RN Active * Do you have difficulty dressing or bathing? Answer Date of Assessment Author Status Yes 02/18/2021 10:00 PM CDT Lamar Cramer RN Active * Because of a physical, mental, or emotional condition, do you have difficulty doing errands alone such as visiting a doctor's office or shopping? Answer Date of Assessment Author Status Yes 02/18/2021 10:00 PM CDT Lamar Cramer RN Active documented as of this encounter Mental Status * Because of a physical, mental, or emotional condition, do you have serious difficulty concentrating, remembering, or making decisions? Answer Entry Date Author Status No 02/18/2021 10:00 PM ZACHARYT Lamar Cramer RN Active documented in this encounter Plan of Treatment Not on file documented as of this encounter Goals Goal Patient Goal Type Associated Problems Recent Progress Patient-Stated? Author Safety - demonstrates understanding of home safety measures General No Vianca Live RN Health - patient able to perform ADLs independently General No Radha Fraire RN documented as of this encounter Visit Diagnoses Not on filedocumented in this encounter Additional Health Concerns Assessment Noted Time PHQ-9 Depression Total Score: 0 03/13/20 21 2:51 PM CDT documented as of this encounter Care Teams Head Turning Machine Operator Relationship Specialty Start Date End Date Gifty Willard MD [address] [place] [phone] PCP - General SPORTS MEDICINE 02/13/22 Girma Hidalgo MD [address] [address] [place], [place] [address] Consulting Physician ORTHOPAEDIC SURGERY 02/27/22 Yeni Mccloud MD [address] [place] [address] [phone] (Work) Consulting Physician HOSPITALIST 03/12/22 documented as of this encounter
--- OUTSIDE RECORDS SUMMARY | 2024-10-07 11:34 | XMS_ITS | Patient Health Summary ---
Author Organization [facility] Address [address] [place] [address] Care Team Providers Care Educational Sign Language Interpreter Name Role Phone Gifty Willard Primary Care Provider Gifty Bentley Unavailable Unavailable Note from [facility],non-owned Affiliates and Associated Physician Practices is amultiple site organization consisting of ambulatory clinics and hospital sitesin [place], [place], [place] and [place]. This disclosure is being madepursuant to the Care Everywhere program and may not contain all information available regarding this patient. Last updated 18.[facility] Allergies * Penicillins(Unknown) * Penicillin G(Rash) -Medium Criticality Medications * Be aware that medications may not be up to date on this document. Alwaysverify current medications with the patient. * semaglutide (RYBELSUS) 3 MG tablet Take 1 (one) tablet by mouth once daily * lisinopril (PRINIVIL; ZESTRIL) 20 MG tablet Take 1 (one) tablet by mouth once daily * aspirin (ASPIRIN) 81 MG chew tablet Take 1 (one) tablet by mouth once daily * clobetasol emollient (TEMOVATE E) 0.05 % cream Apply to affected area 3 times daily * atorvastatin (Lipitor) 20 MG tablet(Started 01/11/2022) Take 1 (one) tablet by mouth once daily * doxycycline hyclate (Vibramycin) 100 MG capsule Take 1 (one) capsule by mouth once daily * gabapentin (Neurontin) 300 MG capsule(Started 03/09/2021) Take 2 (two) capsules by mouth once daily * nystatin (Mycostatin) 472231 UNIT/GM ointment(Started 04/16/2024) Use with the Triamcinolone ointment 0.1% to vulvar skin every other day. 1 refill by 04/16/2025 * triamcinolone acetonide (Kenalog) 0.1 % ointment(Started 04/16/2024) Use with the nystatin ointment to vulvar skin every other day 1 refill by 04/16/2025 Active Problems Problem Noted Date Diagnosed Date Mild intermittent asthma without complication Pain in shoulder region after shoulder replaceme nt 03/21/2023 10/14/2023 Varicose veins of both lower extremities with pa in 03/20/2023 10/14/2023 Angioneurotic edema 03/06/2023 03/06/2023 Anal fissure 03/06/2023 03/06/2023 Contact dermatitis and other eczema 03/06/2023 03/06/2023 Bunion 03/06/2023 03/06/2023 De Quervain's tenosynovitis 03/06/2023 08/0 09/2022 Other diseases of lung 03/06/2023 Pain in joint, multiple sites 03/06/2023 Pure hypercholesterolemia 01/18/20232022 Gastroesophageal reflux disease 2022 Moderate episode of recurrent major depressive d isorder 04/30/2022 S/P reverse total shoulder arthroplasty, left Essential hypertension 01/24/2022 HLD (hyperlipidemia) 01/24/2022 Lichen sclerosus et atrophicus of the vulva 01/04 ELIZABETH (obstructive sleep apnea) 01/24/2022 Type 2 diabetes mellitus wit h diabetic polyneuropathy, without long-term current use of insulin 01/24/2022 History of sleep apnea 01/24/2022 3 Primary osteoarthritis of left shoulder 01/03/20 Status post total replacement of right hip 02/16 Left knee pain 08/13/2014 Follow-up examination,surger y LEFT KNEE MANIPULATION 7-10-14 01/22/2014 Hx of total knee arthroplasty 01/22/2014 Stiffness of knee joint, left 01/22/2014 Lumbosacral spondylosis without myelopathy 12/0403/06/2023 Osteoarthritis of lumbar spine 12/04/2013 0 03/06/2023 Personal history of fall 12/04/2013 023 Cataracts, bilateral 07/22/2013 03/06/2023 DM (diabetes mellitus) type II controlled, neurological manifestation 07/22/2013 03/06/2023 Deaf 07/22/2013 03/06/2023 Osteoarthrosis 07/22/2013 03/06/2023 Other specified chronic obstructive airways dise ase 05/11/2013 Carpal tunnel syndrome 03/14/2012 Knee joint replacement by other means R TKR 09/21/2011 Aftercare following joint replacement R TKR 09/21/2011 Sinusitis, chronic 09/19/2011 Asthma 09/19/2011 Abnormal CXR (chest x-ray) 09/19/2011 Insomnia 09/19/2011 Allergy 11/29/2010 03/06/2023 Anxiety state 10/20/2010 03/06/2023 Low back pain 01/09/2008 03/06/2023 Degeneration of cervical intervertebral disc 07/2007 Depressive disorder, not elsewhere classified Depression, major, in remission 12/05/2005 Rosacea 11/18/2003 Immunizations * INFLUENZA VACCINE(Given 05/19/2018) * INFLUENZA VACCINE, ADJUVANTED, TRIV. (FLUAD TRIVALENT; 65Y+) (AIIV3)(Given 05/20/2018) * INFLUENZA VACCINE, HIGH-DOSE, QUADR. (FLUZONE HIGH-DOSE QUADRIVALENT; 65Y+), 0.7 ML (HD-IIV4)(Given 05/24/2021, 05/23/2020) * PNEUMOCOCCAL PPSV23(Given 08/10/2021) * Zoster Hzv Vacc Recombinant Inj Im(Given 05/29/2019, 05/20/2018) Social History Tobacco Use Types Packs/Day Years [...] AM CDT Pulse 79 07/04/2018 12:32 PM BACTERIOLOGY PROFESSOR Temperature 36.9 C (98.5 F) 11/11/2018 11:00 AM CDT Respiratory Rate 18 07/04/2018 12:32 PM BACTERIOLOGY PROFESSOR Oxygen Saturation 98% 07/04/2018 12:32 PM BACTERIOLOGY PROFESSOR Inhaled Oxygen Concentration - - Weight 78.9 kg (174 lb) 04/16/2024 10:31 AM CDT Height 165.1 cm (5' 5 ) 04/16/2024 10:31 AM CDT Body Mass Index 28.96 04/16/2024 10:31 AM CDT Procedures * LAB RESULTS ORDER(Performed 04/24/2022) * DEXA BONE DENSITY 2 SITES(Performed 02/26/2022) * CULTURE YEAST(Performed 11/23/2020) Performed for Lichen sclerosus, Vulvar itching * XR PELVIS W RIGHT HIP 2VW(Performed 03/13/2019) Performed for Primary osteoarthritis of right hip * FL DRAIN INJ MAJOR JOINT BURSA W US(Performed 02/12/2019) Performed for Arthritis of right hip * FL US GUIDED NEEDLE PLACEMENT(Performed 02/10/2019) Performed for Arthritis of right hip * FL DRAIN INJ MAJOR JOINT BURSA W US(Performed 11/13/2018) Performed for Arthritis of right hip * FL DRAIN INJ MAJOR JOINT BURSA W US(Performed 08/07/2018) Performed for Arthritis of right hip, Right hip pain * FL DRAIN/INJECT LARGE JOINT/BURSA(Performed 07/08/2018) Performed for Primary osteoarthritis of right knee * ED ARTHROCENTESIS(Performed 07/05/2018) * PATHOLOGY SMEAR BODY FLUID(Performed 07/04/2018) * CRYSTAL INDENTIFICATION SYNOVIAL FLUID(Performed 07/04/2018) * DIFFERENTIAL MANUAL FLUID(Performed 07/04/2018) * CELL COUNT W DIFF W CRYSTALS SYNOVIAL(Performed 07/04/2018) * XR PELVIS W RIGHT HIP 2VW(Performed 07/04/2018) Performed for Acute pain of right knee * CT FEMUR RIGHT WO CONTRAST(Performed 07/04/2018) Performed for Acute pain of right knee * PT-INR [facility](Performed 07/04/2018) * BASIC METABOLIC PANEL (CALCIUM TOTAL)(Performed 07/04/2018) * C-REACTIVE PROTEIN(Performed 07/04/2018) * ERYTHROCYTE SEDIMENTATION RATE(Performed 07/04/2018) * CBC W AUTO DIFFERENTIAL(Performed 07/04/2018) * GRAM STAIN (LAB ORDERED)(Performed 07/04/2018) * CULTURE FLUID+GRAM STAIN(Performed 07/04/2018) * XR KNEE RIGHT 4VW OR MORE(Performed 07/04/2018) Performed for Acute pain of right knee * DERMATOPATHOLOGY(Performed 12/24/2016) * MANIPULATION INJECTION KNEE(Performed 02/11/2014) Performed for Pain in joint, lower leg * EKG 12-LEAD(Performed 02/11/2014) Performed for Preop examination * XR KNEE LEFT 2VW OR LESS(Performed 12/08/2013) Performed for Knee pain * XR CHEST 2VW(Performed 02/26/2013) Performed for Asthma with acute exacerbation (HCC) * XR KNEE LEFT 2VW OR LESS(Performed 03/26/2012) Performed for Knee pain * EMG WITH NERVE CONDUCTION STUDY(Performed 03/21/2012) * ALLERGEN RESPIRATORY PNL REGION 8 ([place])(Performed 10/01/2011) Performed for Asthma * IGE BLOOD(Performed 10/01/2011) Performed for Asthma * CT CHEST WO CONTRAST(Performed 10/01/2011) Performed for Abnormal CXR (chest x-ray) * COMPLETE PFT W/WO BRONCHODILATOR(Performed 09/25/2011) Performed for Asthma * CARDIAC EKG ORDER(Performed 05/08/2011) * CARDIAC EKG ORDER(Performed 05/08/2011) * CT ABDOMEN PELVIS W CONTRAST(Performed 05/06/2011) Performed for Abdominal pain, acute * CULTURE URINE(Performed 05/06/2011) * URINALYSIS REFLEX MICROSCOPIC REFLEX CULTURE(Performed 05/06/2011) * TROPONIN I(Performed 05/06/2011) * AMYLASE BLOOD(Performed 05/06/2011) * LIPASE BLOOD(Performed 05/06/2011) * COMPREHENSIVE METABOLIC PANEL(Performed 05/06/2011) * CBC W AUTO DIFFERENTIAL(Performed 05/06/2011) * CARDIAC EKG ORDER(Performed 04/15/2011) * IMAGING/RADIOLOGY/XRAY RESULTS ORDER(Performed 04/15/2011) * CT ANGIO CHEST PULM EMBOLISM(Performed 04/13/2011) Performed for Paroxysmal atrial tachycardia * BASIC METABOLIC PANEL (CALCIUM TOTAL)(Performed 04/13/2011) * HGB HCT PANEL(Performed 04/13/2011) * HGB HCT PANEL(Performed 04/12/2011) * URINALYSIS REFLEX MICROSCOPIC REFLEX CULTURE(Performed 04/11/2011) * IP CONSULT TO HOSPITALIST(Performed 04/11/2011) * CARDIAC EKG ORDER(Performed 04/03/2011) * URINALYSIS REFLEX MICROSCOPIC REFLEX CULTURE(Performed 04/02/2011) Performed for Unspecified pre-operative examination * BASIC METABOLIC PANEL (CALCIUM TOTAL)(Performed 04/02/2011) Performed for Unspecified pre-operative examination * HGB HCT PANEL(Performed 04/02/2011) Performed for Unspecified pre-operative examination * CULTURE MSSA/MRSA(Performed 04/02/2011) Performed for Unspecified pre-operative examination * PT PTT PANEL(Performed 12/21/2010) * CBC W AUTO DIFFERENTIAL(Performed 12/21/2010) * XR CHEST 2VW(Performed 12/03/2008) Performed for Chronic Airway Obstruction, not Elsewhere Classified * BLOOD GASES ART + LYTES PANEL(Performed 12/03/2008) Performed for Chronic Airway Obstruction, not Elsewhere Classified * PFT-LAB(Performed 12/03/2008) * CYTOLOGY NON-FLUTE POLISHER PANEL(Performed 10/30/2007) * CYTOLOGY NON-FLUTE POLISHER PANEL(Performed 10/30/2007) Results * LAB RESULTS ORDER (04/24/2022) 04/24/2022 Narrative 04/24/2022 Ordered by an unspecified provider. Scanned Document LAB - THERAPEUTIC DR UG MONITORING ORDERABLES * DEXA BONE DENSITY 2 SITES (02/26/2022) Anatomical Region Laterality Modality Other 02/26/2022 Narrative 02/26/2022 Ordered by an unspecified provider. Scanned Document DEXA ORDERABLES * CULTURE YEAST (11/23/2020 9:06 AM CDT) Culture Yeast with ID [facility] Comment: CULTURE, YEAST, W/IDENTIFICATION Micro Number: [id number] Test Status: Final Specimen Source: [facility] Specimen Quality: Adequate Result: No yeast isolated Test Performed at: [id number] [id number] CANDELARIA ZAVALA MD Microbiology ENTIRE [facility] / Unknown 11/23/2020 9:06 AM CDT 11/24/2020 1:21 AM CDT Isela Sethi Pee CHEMICAL LAB SUPERVISOR-[employer] LAB - MICRO BIOLOGY ORDERABLES [facility] [id number] [place] [address] * XR PELVIS W RIGHT HIP 2VW (03/13/2019 10:55 AM CDT) Only the most recent of2 resultswithin the time period is included. Anatomical Region Laterality Modality Radiographic Do ging 03/13/2019 10:5 9 AM CDT Impressions 03/13/2019 11:08 AM CDT Degenerative changes. Edited by Martha Pruitt on 03/13/2019 11:05 AM Reading Radiologist: Jhonathan Jama MD on 03/13/2019 at 11:08 AM Narrative 03/13/2019 11:08 AM CDT RIGHT HIP 3 VIEW HISTORY: Osteoarthritis There is myeo-[id number] degenerative change of the bilateral hip joints with medial-sided joint space narrowing. Degenerative change of the bilateral sacroiliac joints and lumbar spine are present. Procedure Note Jhonathan Jama MD - 03/13/2019 RIGHT HIP 3 VIEW HISTORY: Osteoarthritis There is [id number] degenerative change of the bilateral hip joints with medial-sided joint space narrowing. Degenerative change of the bilateral sacroiliac joints and lumbar spine are present. IMPRESSION Degenerative changes. Edited by Martha Pruitt on 03/13/2019 11:05 AM Reading Radiologist: Jhonathan Jama MD on 03/13/2019 at 11:08 AM Prosper Jauregui MD DIAGNOSTIC IMAGING O RDERABLES * FL DRAIN INJ MAJOR JOINT BURSA W US (02/12/2019 8:15 AM CDT) Narrative Matteo Rod DO - 02/12/2019 8:15 AM CDT Matteo Rod DO 02/12/2019 8:15 AM U/S-GUIDED INJECTION PROCEDURE NOTE Risks/benefits of injection discussed, including bleeding, infection, site reaction, and possible flare. Pt. Expresses understanding and verbally consents for injection. U/S used to visualize anatomic area first. Next area prepped with chloroprep in usual sterile fashion. 3 cc of buffered 0.5%ropivicaine for local anesthesia. 2 cc of 40 mg/mL Triamcinolone Acetonide / Depomedrol + 4 cc of 0.5%ropivicaine was injected into right hip Joint using a in-plane approach under ultrasound guidance. Pt. Tolerated well. No complications. An ultrasound image was saved demonstrating the successful needle localization. Felipe Kari Marcel KELSEY PROCEDURE/MINOR SURG ICAL ORDERABLES * FL US GUIDED NEEDLE PLACEMENT (02/10/2019 11:41 AM CDT) 02/10/2019 11:4 1 AM CDT Felipe Kari Marcel KELSEY PROCEDURE/MINOR SURG ICAL ORDERABLES [facility] INFINITT_PACS * FL DRAIN INJ MAJOR JOINT BURSA W US (11/13/2018 1:07 PM CDT) Narrative Matteo Rod DO - 11/13/2018 1:07 PM CDT Matteo Rod DO 11/13/2018 1:07 PM U/S-GUIDED INJECTION PROCEDURE NOTE Risks/benefits of injection discussed, including bleeding, infection, site reaction, and possible flare. Pt. Expresses understanding and verbally consents for injection. U/S used to visualize anatomic area first. Next area prepped with chloroprep in usual sterile fashion. 3 cc of buffered 1% lido for local anesthesia. 2 cc of 40 mg/mL Triamcinolone Acetonide + 4 cc of 1% lido was injected into right hip Joint using a in-plane approach under ultrasound guidance. Pt. Tolerated well. No complications. An ultrasound image was saved demonstrating the successful needle localization. Matteo Kari Marcel KELSEY PROCEDURE/MINOR SURG ICAL ORDERABLES * FL DRAIN INJ MAJOR JOINT BURSA W US (08/07/2018 4:25 PM BACTERIOLOGY PROFESSOR) Narrative Matteo Rod DO - 08/07/2018 4:25 PM BACTERIOLOGY PROFESSOR Matteo Rod DO 08/07/2018 4:25 PM U/S-GUIDED INJECTION PROCEDURE NOTE Risks/benefits of injection discussed, including bleeding, infection, site reaction, and possible flare. Pt. Expresses understanding and verbally consents for injection. U/S used to visualize anatomic area first. Next area prepped with chloroprep in usual sterile fashion. 3 cc of buffered 1% lido for local anesthesia. 2 cc of 40 mg/mL Triamcinolone Acetonide + 4 cc of 1% lido was injected into right hip Joint using a in-plane approach under ultrasound guidance. Pt. Tolerated well. No complications. An ultrasound image was saved demonstrating the successful needle localization. Felipe Kari Rod PROCEDURE/MINOR SURG ICAL ORDERABLES * FL DRAIN/INJECT LARGE JOINT/BURSA (07/08/2018 4:09 PM BACTERIOLOGY PROFESSOR) Narrative Leana Galvan PA-C - 07/08/2018 4:09 PM BACTERIOLOGY PROFESSOR Leana Galvan PA-C 07/08/2018 4:09 PM Orthopaedic Surgery Procedure Note Diagnosis: Right knee pain Procedure: Injection of Corticosteroid into the Right knee. Indications: Lucia Bruner is a 68 y.o. female who has Right knee pain and arthritis. Procedure Details: Ms. Bruner was informed of her condition, and the potential benefits of injection of steroid. The patient was counseled as to the risks of the procedure. She was understanding and agreeable. The patient was placed into the supine position. The area was prepped with beta-dine. Utilizing the supralateral patellar portal, the skin, subcutaneous, and pericapsular tissues were injected with 3 cc 1% lidocaine without epinephrine using a 21 Ga needle. The patient's Right knee was then entered. Confirmation of location inside the joint was evidenced by aspiration of 10 cc serosanguinous synovial fluid. 2 cc of Kenalog and 3 cc 1% lidocaine without epinephrine was injected into the joint. The needle was removed and the needle site dressed with a semi-sterile bandage. The patient tolerated the procedure well. Remainder of plan per note. Leana Galvan PA-C 07/08/2018 3:58 PM Leana Galvan PA-C PROCEDURE/MINOR SURGICAL ORDERABLES * ED ARTHROCENTESIS (07/05/2018 1:34 AM BACTERIOLOGY PROFESSOR) Narrative Patrick Noble MD - 07/05/2018 1:34 AM BACTERIOLOGY PROFESSOR Usha Whiteside PA-C 07/04/2018 7:00 PM Arthrocentesis Date/Time: 07/04/2018 6:56 PM Performed by: USHA WHITESIDE Authorized by: USHA WHITESIDE Consent: Consent obtained: Verbal Consent given by: Patient (family member sign language ) Risks discussed: Bleeding, incomplete drainage, infection and pain Alternatives discussed: No treatment Location: Location: Knee Anesthesia (see MAR for exact dosages): Anesthesia method: Local infiltration (1 cc) Local anesthetic: Lidocaine 1% w/o epi Procedure details: Preparation: Patient was prepped and draped in usual sterile fashion Needle gauge: 18 G Ultrasound guidance: no Approach: Superior (lateral superior aspect) Aspirate characteristics: Bloody Steroid injected: no Specimen collected: yes Post-procedure details: Dressing: Adhesive bandage Patient tolerance of procedure: Tolerated well, no immediate complications (pt reports pain sig improved orthopedics consulted) Usha Whiteside PA-C PROCEDURE/M INOR SURGICAL ORDERABLES * CRYSTAL INDENTIFICATION SYNOVIAL FLUID (07/04/2018 4:59 PM BACTERIOLOGY PROFESSOR) Crystal Exam Fluid No crystals seen. To be reviewed by pathologist. 07/04/2018 6:09 PM BACTERIOLOGY PROFESSOR [facility] Fluid SYNOVIAL FLUID / Unknown Collection / Unknown 07/04/2018 4:59 PM BACTERIOLOGY PROFESSOR 07/04/2018 4:59 PM BACTERIOLOGY PROFESSOR Usha Talamantes MD LAB - BODY FLUID ORD ERABLES [address] [phone] * PATHOLOGY SMEAR BODY FLUID (07/04/2018 4:59 PM BACTERIOLOGY PROFESSOR) Pathology Diff Review DIFFERENTIAL REVIEW - CONFIRMED DIFFERENTIAL REVIEW - CONFIRMED 07/07/2018 3:02 PM BACTERIOLOGY PROFESSOR [facility] Comment: The patient is a 68 year old woman with a history of left knee replacement and chronic knee swelling for the last few years. She presented with knee swelling. An arthrocentesis was performed. Synovial fluid shows significant contamination by peripheral blood with a high red blood cell count and a white blood cell count proportional to that normally present in the peripheral blood. One cluster of extracellular coccoid structures is identified. These likely represent contaminant. Given a negative gram stain and given that only one cluster of extra-cellular structures is identified, these likely represent contamination. Please correlate with culture results. I have personally reviewed the cytospin slide and agree with Dr. Tillman's interpretation and also add that there are no crystals seen. Channing Humphries MD Fluid SYNOVIAL FLUID / Unknown Collection / Unknown 07/04/2018 4:59 PM BACTERIOLOGY PROFESSOR 07/04/2018 4:59 PM BACTERIOLOGY PROFESSOR Usha Talamantes MD LAB - PATHOLOGY/CYTO LOGY ORDERABLES Performing Organization Address [facility]/ZIP Co de Phone Number [address] [phone] * DIFFERENTIAL MANUAL FLUID (07/04/2018 4:59 PM BACTERIOLOGY PROFESSOR) Pathologist [facility] Segs % Fluid 92 % 07/04/2018 6:18 PM BACTERIOLOGY PROFESSOR [facility] Lymphocytes % Fluid 4 % 07/04/2018 6:18 PM BACTERIOLOGY PROFESSOR [facility] Monocytes % Fluid 3 % 07/04/2018 6:18 PM BACTERIOLOGY PROFESSOR [facility] Eosinophils % Fluid 1 % 07/04/2018 6:18 PM [facility] Fluid SYNOVIAL FLUID / Unknown Collection / Unknown 07/04/2018 4:59 PM BACTERIOLOGY PROFESSOR 07/04/2018 4:59 PM BACTERIOLOGY PROFESSOR Narrative [facility] - 07/04/2018 6:18 PM BACTERIOLOGY PROFESSOR Very rare extracellular bacteria seen. Usha Talamantes MD LAB - BODY FLUID ORD ERABLES Performing Organization Address [facility]/ZIP Co de Phone Number [address] [phone] * (ABNORMAL) CELL COUNT W DIFF W CRYSTALS SYNOVIAL (07/04/2018 4:59 PM BACTERIOLOGY PROFESSOR) Color Fluid Red(A) Colorles s, Straw 07/04/2018 5:14 PM BACTERIOLOGY PROFESSOR [facility] Clarity Fluid Bloody(A) Clear 07/04/2018 5:14 PM BACTERIOLOGY PROFESSOR [facility] Volume Fluid 1.0 mL 07/04/2018 5:14 PM [facility] Viscosity Decreased 07/04/2018 5:14 PM [facility] WBC Fluid 2,400(H) 0 - 200 /uL 07/04/2018 5:14 PM [facility] RBC Fluid 2,360,000(H) 0 /uL 07/04/2018 5:14 PM [facility] Crystal Exam Fluid Crystal examination to follow. 07/04/2018 5:14 PM [facility] Differential Manual Differential to follow. 07/04/2018 5:14 PM [facility] Fluid SYNOVIAL FLUID / Unknown Collection / Unknown 07/04/2018 4:59 PM BACTERIOLOGY PROFESSOR 07/04/2018 4:59 PM BACTERIOLOGY PROFESSOR Usha Talamantes MD LAB - BODY FLUID ORD ERABLES [facility] [address] [place] [address] * CT FEMUR RIGHT WO CONTRAST (07/04/2018 4:51 PM BACTERIOLOGY PROFESSOR) Anatomical Region Laterality Modality Lower Extremity Computed Tomogra phy 07/04/2018 5:13 PM BACTERIOLOGY PROFESSOR Impressions 07/05/2018 11:51 AM BACTERIOLOGY PROFESSOR IMPRESSION: Moderate volume hemarthrosis with tiny air bubbles which could be related to recent right knee joint aspiration. Moderate right hip and mild right knee osteoarthritis. Dictated by Alexsandra Clemons MD (academic affairs vice president). I, Dr. MIRTA CASTILLO have personally reviewed and interpreted this examination/study. This report was electronically signed by MIRTA CASTILLO on 07/05/2018 11:51 AM . Narrative 07/05/2018 11:51 AM BACTERIOLOGY PROFESSOR EXAMINATION: Computed tomography (CT) of the right femur without contrast HISTORY: hip pain right knee effusion hemarthrosis TECHNIQUE: CT of the right femur was performed without intravenous contrast according to a standard protocol. COMPARISON: No prior study is available for comparison. FINDINGS: Moderate degenerative changes involve the right hip joint with subchondral cyst formation and sclerosis but without acute fracture or dislocation. There is no acute fracture of the right femur. There is no acute fracture involving the distal femur, proximal visible portions of the tibia and fibula. Small possible enchondroma is seen in the distal femoral diaphysis (series 7, image 47). A moderate volume suprapatellar joint effusion higher than simple fluid density and tiny air bubbles are seen. There is minimal prepatellar soft tissue swelling. There are mild degenerative changes of the right knee. No right knee fracture. Partially imaged is left total knee replacement. Procedure Note Mirta Castillo MD - 07/05/2018 EXAMINATION: Computed tomography (CT) of the right femur withoutcontrast HISTORY: hip pain right knee effusion hemarthrosis TECHNIQUE: CT of the right femur was performed without intravenous contrast according to a standard protocol. COMPARISON: No prior study is available for comparison. FINDINGS: Moderate degenerative changes involve the right hip joint withsubchondral cyst formation and sclerosis but without acute fracture or dislocation. There is no acute fracture of the right femur. There is no acutefracture involving the distal femur, proximal visible portions of the tibia and fibula. Small possible enchondroma is seen in the distal femoraldiaphysis (series 7, image 47). A moderate volume suprapatellar joint effusion higher than simple fluid density and tiny air bubbles are seen. There is minimal prepatellar soft tissue swelling. There are mild degenerative changes of the right knee.No right knee fracture. Partially imaged is left total knee replacement. IMPRESSION: Moderate volume hemarthrosis with tiny air bubbles which could berelated to recent right knee joint aspiration. Moderate right hip and mild right knee osteoarthritis. Dictated by Alexsandra Clemons MD (academic affairs vice president). I, Dr. MIRTA CASTILLO have personally reviewed and interpreted this examination/study. This report was electronically signed by MIRTA CASTILLO on 07/05/201811:51 AM . Usha Whiteside PA-C CT ORDERABL ES * PT-INR [facility] (07/04/2018 4:11 PM BACTERIOLOGY PROFESSOR) PT 12.7 12.1 - 14.8 Seconds 07/04/2018 4:49 PM BACTERIOLOGY PROFESSOR [facility] INR 1.0 See Comment 07/04/2018 4:49 PM BACTERIOLOGY PROFESSOR [facility] Comment: The suggested therapeutic range for standard coumadin (warfarin) therapy is an INR of 2.0-3.0. For high-risk patients (Mechanical Mitral Valve Prosthesis, etc.), the suggested prophylactic therapeutic range is an INR of 2.5-3.5. Blood BLOOD SPECIMEN / Unknown Venipuncture / Unknown 07/04/2018 4:11 PM BACTERIOLOGY PROFESSOR 07/04/2018 4:17 PM BACTERIOLOGY PROFESSOR Usha CARCAMO-C LAB - COAGU LATION ORDERABLES Performing Organization Address [facility]/ZIP Co de Phone Number [address] [phone] * (ABNORMAL) C-REACTIVE PROTEIN (07/04/2018 4:11 PM BACTERIOLOGY PROFESSOR) C-Reactive Protein 1.1(H) <=0.5 mg/dL 07/04/2018 4:34 PM BACTERIOLOGY PROFESSOR [facility] Blood BLOOD SPECIMEN / Unknown Venipuncture / Unknown 07/04/2018 4:11 PM BACTERIOLOGY PROFESSOR 07/04/2018 4:16 PM BACTERIOLOGY PROFESSOR Usha CARCAMO-C LAB - CHEMI STRY ORDERABLES Performing Organization Address [facility] [place] [address], [facility] [phone] * (ABNORMAL) ERYTHROCYTE SEDIMENTATION RATE (07/04/2018 4:11 PM BACTERIOLOGY PROFESSOR) Erythrocyte Sedimentation Rate Westergren 41(H) 0 - 30 MM/HR 07/04/2018 4:27 PM BACTERIOLOGY PROFESSOR [facility] Blood BLOOD SPECIMEN / Unknown Venipuncture / Unknown 07/04/2018 4:11 PM BACTERIOLOGY PROFESSOR 07/04/2018 4:17 PM BACTERIOLOGY PROFESSOR Usha CARCAMO-C LAB - HEMAT OLOGY ORDERABLES Performing Organization Address [facility] [place] [address], [facility] [phone] * (ABNORMAL) CBC W AUTO DIFFERENTIAL (07/04/2018 4:11 PM [facility]) Only the most recent of3 resultswithin the time period is included. WBC 10.7(H) 3.5 - 10.5 10 3/uL 07/04/2018 4:22 PM [facility] RBC 4.71 3.90 - 5.00 10 6/uL 07/04/2018 4:22 PM [facility] Hemoglobin 14.1 12.0 - 15.5 g/dL 07/04/2018 4:22 PM [facility] Hematocrit 43.0 35.0 - 45.0 % 07/04/2018 4:22 PM [facility] MCV 91.3 81.0 - 97.0 fL 07/04/2018 4:22 PM [facility] MCH 29.9 28.0 - 34.0 pg 07/04/2018 4:22 PM [facility] MCHC 32.8 32.0 - 36.0 g/dL 07/04/2018 4:22 PM [facility] Platelet Count 254 150 - 400 10 3/uL 07/04/2018 4:22 PM [facility] RDW-SD 48.1 36.0 - 50.0 fL 07/04/2018 4:22 PM [facility] RDW-CV 14.2 11.2 - 14.8 % 07/04/2018 4:22 PM [facility] MPV 9.8 9.3 - 12.8 fL 07/04/2018 4:22 PM [facility] Neutrophils % 59.2 35.0 - 70.0 % 07/04/2018 4:22 PM [facility] Lymphocytes % 27.6 19.7 - 55.1 % 07/04/2018 4:22 PM [facility] Monocytes % 9.5 3.0 - 15.0 % 07/04/2018 4:22 PM [facility] Eosinophils % 3.4 0.0 - 6.0 % 07/04/2018 4:22 PM [facility] Basophil % 0.3 0.0 - 1.5 % 07/04/2018 4:22 PM [facility] Neutrophils Absolute 6.3 1.6 - 7.0 10 3/uL 07/04/2018 4:22 PM [facility] Lymphocyte Absolute 3.0(H) 0.8 - 2.9 10 3/uL 07/04/2018 4:22 PM [facility] Monocytes Absolute 1.02(H) 0.14 - 0.66 10 3/uL 07/04/2018 4:22 PM [facility] Eosinophils Absolute 0.36(H) 0.00 - 0.22 10 3/uL 07/04/2018 4:22 PM [facility] Basophils Absolute 0.03 0.00 - 0.06 10 3/uL 07/04/2018 4:22 PM [facility] Immature Granulocytes % 0.3 0.0 - 1.0 % 07/04/2018 4:22 PM [facility] Blood BLOOD SPECIMEN / Unknown Venipuncture / Unknown 07/04/2018 4:11 PM BACTERIOLOGY PROFESSOR 07/04/2018 4:17 PM [facility] Usha Whiteside PA-C LAB - HEMAT OLOGY ORDERABLES [address] [phone] * BASIC METABOLIC PANEL (CALCIUM TOTAL) (07/04/2018 4:11 PM BACTERIOLOGY PROFESSOR) Only the most recent of3 resultswithin the time period is included. BUN 11 7 - 26 mg/dL 07/04/2018 4:36 PM [facility] Creatinine 0.7 0.6 - 1.2 mg/dL 07/04/2018 4:36 PM [facility] Sodium 138 136 - 145 mmol/L 07/04/2018 4:36 PM [facility] Potassium 3.9 3.5 - 4.5 mmol/L 07/04/2018 4:36 PM [facility] Chloride 103 98 - 107 mmol/L 07/04/2018 4:36 PM [facility] CO2 25 22 - 29 mmol/L 07/04/2018 4:36 PM [facility] Glucose 88 70 - 115 mg/dL 07/04/2018 4:36 PM [facility] Calcium 9.5 8.4 - 10.2 mg/dL 07/04/2018 4:36 PM [facility] Anion Gap 14 8 - 18 07/04/2018 4:36 PM [facility] BUN/Creatinine Ratio 16 7 - 23 07/04/2018 4:36 PM [facility] Osmolality Calculated 285 270 - 300 mOsm/kg 07/04/2018 4:36 PM [facility] eGFR >60 >60 mL/min/1.7 3 m2 07/04/2018 4:36 PM [facility] Blood BLOOD SPECIMEN / Unknown Venipuncture / Unknown 07/04/2018 4:11 PM BACTERIOLOGY PROFESSOR 07/04/2018 4:16 PM BACTERIOLOGY PROFESSOR Usha Whiteside PA-C LAB - CHEMI STRY ORDERABLES Performing Organization Address City/[facility]/ZIP Co de Phone Number [address] [phone] * GRAM STAIN (LAB ORDERED) (07/04/2018 4:10 PM BACTERIOLOGY PROFESSOR) Gram Stain No organisms seen 07/04/2018 7:14 PM [facility] Gram Stain Heavy Red blood cells 07/04/2018 7:14 PM [facility] Fluid SYNOVIAL FLUID / Unknown Collection / Unknown 07/04/2018 4:10 PM BACTERIOLOGY PROFESSOR 07/04/2018 4:18 PM BACTERIOLOGY PROFESSOR Usha Whiteside PA-C LAB - MICRO BIOLOGY ORDERABLES [address] [phone] * CULTURE FLUID+GRAM STAIN (07/04/2018 4:10 PM BACTERIOLOGY PROFESSOR) Culture No growth NAHID 07/11/2018 6:33 AM BACTERIOLOGY PROFESSOR [facility] Gram Stain Light Polymorphonuclear cells 07/11/2018 6:33 AM BACTERIOLOGY PROFESSOR [facility] Gram Stain Heavy Red blood cells 07/11/2018 6:33 AM BACTERIOLOGY PROFESSOR [facility] Gram Stain No organisms seen 018 6:33 AM BACTERIOLOGY PROFESSOR [facility] Fluid SYNOVIAL FLUID / Unknown Collection / Unknown 07/04/2018 4:10 PM BACTERIOLOGY PROFESSOR 07/04/2018 4:18 PM BACTERIOLOGY PROFESSOR Usha Whiteside PA-C LAB - MICRO BIOLOGY ORDERABLES [facility] [address] [place], [place] [address], [facility] [phone] * XR KNEE RIGHT 4VW OR MORE (07/04/2018 1:46 PM BACTERIOLOGY PROFESSOR) Anatomical Region Laterality Modality Lower Extremity Radiographic Do ging 07/04/2018 1:48 PM BACTERIOLOGY PROFESSOR Impressions 07/04/2018 1:59 PM BACTERIOLOGY PROFESSOR IMPRESSION: No acute osseous abnormality. Minimal degenerative bony change. Large joint effusion. Dictated by Erica Alejandro MD (academic affairs vice president). Dr. JAYE Ambrose M.D. have personally reviewed and interpreted this examination/study. This report was electronically signed by JAYE AYERS M.D. on 07/04/2018 1:59 PM . Narrative 07/04/2018 1:59 PM BACTERIOLOGY PROFESSOR EXAMINATION: XR KNEE RIGHT 4VW OR MORE HISTORY: include sun rise view knee pain COMPARISON: No prior study is available for comparison. FINDINGS: Patient is unable to fully extend the knee. The osseous structures are intact and well aligned without acute fracture or dislocation. Minimal joint space narrowing is seen. Minimal osteophyte formation is seen. Bone density is normal. There is a large joint effusion. Procedure Note Jaye Ayers MD - 07/04/2018 EXAMINATION: XR KNEE RIGHT 4VW OR MORE HISTORY: include sun rise view knee pain COMPARISON: No prior study is available for comparison. FINDINGS: Patient is unable to fully extend the knee. The osseous structures are intact and well aligned without acutefracture or dislocation. Minimal joint space narrowing is seen. Minimalosteophyte formation is seen. Bone density is normal. There is a large joint effusion. IMPRESSION: No acute osseous abnormality. Minimal degenerative bony change. Large joint effusion. Dictated by Erica Alejandro MD (academic affairs vice president). Dr. JAYE Ambrose M.D. have personally reviewed and interpreted this examination/study. This report was electronically signed by JAYE AYERS M.D. on07/04/2018 1:59 PM . 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 GROSS DESCRIPTION: Received is one formalin filled container labeled with the patients name and designated right upper arm. The specimen consists of a shave biopsy measuring [id number]. Jar 0. MICROSCOPIC DESCRIPTION: Sections show hyperkeratosis, papillomatosis, hypergranulosis , and acanthosis. Overlying this lesion, the skin is dome-shaped and the epidermis displays psoriasiform hyperplasia with compact hyperkeratosis. The underlying papillary dermis displays fibrosis with a superficial perivascular lymphohistiocyt ic infiltrate. Electronically signed out by Noelle Tobar M.D. 12/26/2016 3:48:58PM [facility] DER[facility] Comment: Performed at: Dermatopathology Laboratory [facility] Department of Dermatology [address] [place] [address] 5th [place] [address] Phone number: [phone] FAX: [phone] 12/24/2016 12/25/2016 Historical Provider MD LAB - PATHOLOGY/C YTOLOGY ORDERABLES [facility] DERMAT[facility]Y LAB [address] [place] [address]. [facility] Floor Lab [address] [phone] * EKG 12-LEAD (02/11/2014 5:13 AM CDT) Ventricular Rate 80 BPM [facility] Atrial Rate 80 BPM [facility] P-R Interval 168 ms [facility] QRS Duration ms 82 ms [facility] Q-T Interval ms 392 ms [facility] QTC Calculation (Bezet) 452 ms [facility] Calculated P [employer] 49 degrees [facility] Calculated R [employer] -38 degrees [facility] Calculated T [employer] 13 degrees [facility] Interpretation EKG Normal sinus rhythm Left axis deviation Minimal voltage criteria for LVH, may be normal variant Abnormal ECG When compared with ECG of 06-MAY-2011 19:51, No significant change was found Confirmed by DILIA CUNHA ([id number]) on 02/11/2014 2:38:56 PM [facility] 02/11/2014 5:13 AM CDT 02/11/2014 2:38 PM CDT Leonardo Ashley MD ECG ORDERABLES [facility] * XR KNEE 1 OR 2 VW LEFT (12/08/2013 10:16 AM CDT) Only the most recent of2 resultswithin the time period is included. Anatomical Region Laterality Modality Lower Extremity Radiographic Do ging Narrative 12/08/2013 4:16 PM CDT Ayde Rogers 12/08/2013 4:16 PM Please see progress notes for result. Procedure Note Ayde Rogers - 12/08/2013 4:16 PM CDT Please see progress notes for result. Patrizia Mcghee MD DIAGNOSTIC IMAGING O RDERABLES * XR CHEST PA AND LATERAL (02/26/2013 1:38 PM CDT) Only the most recent of2 resultswithin the time period is included. Anatomical Region Laterality Modality Chest Radiographic Do ging 02/26/2013 1:58 PM CDT Impressions 02/26/2013 1:58 PM CDT No acute cardiopulmonary disease. Narrative 02/26/2013 1:58 PM CDT CHEST 2 VIEWS CLINICAL INDICATION: Cough and congestion FINDINGS: Two views of the chest were obtained. The exam is compared to prior December 03, 2008 The lungs are well expanded. No confluent infiltrate, consolidation, or effusion is present. The heart and mediastinal silhouettes are normal. Procedure Note Marcos Torres MD - 02/26/2013 CHEST 2 VIEWS CLINICAL INDICATION: Cough and congestion FINDINGS: Two views of the chest were obtained. The exam is compared to prior December 03, 2008 The lungs are well expanded. No confluent infiltrate, consolidation, or effusion is present. The heart and mediastinal silhouettes are normal. IMPRESSION No acute cardiopulmonary disease. Tre Molina MD DIAGNOSTIC IMAGING O RDERABLES * EMG WITH NERVE CONDUCTION STUDY (03/21/2012) Pamela Mandujano DO NEUROLOGY ORDERABLES * (ABNORMAL) ALLERGEN RESPIRATORY PROFILE R8 ([place]) (10/01/2011 11:51 AM BACTERIOLOGY PROFESSOR) Class Description Blood [facility] INSURANCE BILL Comment: Levels of Specific IgE Class Description of Class ----- <0.08 0 Negative 0.08 - 0.15 I 0.16 - 0.50 II Increasing 0.51 - 2.50 III levels 2.51 - 12.50 IV of 12.51 - 62.50 V Specific IgE 62.51 - >100.00 Antibody Allergen Dermatophagoides pteronyssinus <0.08 Class 0 kU/L [facility] INSURANCE BILL Allergen Dermatophagoides farinae <0.08 Class 0 kU/L [facility] INSURANCE BILL Allergen Cat Dander 0.10(A) Class I kU/L [facility] INSURANCE BILL Allergen Dog Epithelium <0.08 Class 0 kU/L [facility] INSURANCE BILL Allergen Bermuda Grass <0.08 Class 0 kU/L [facility] INSURANCE BILL Allergen Mei Grass <0.08 Class 0 kU/L [facility] INSURANCE BILL Allergen Jesus Grass <0.08 Class 0 kU/L [facility] INSURANCE BILL Allergen Cockroach Kosovan <0.08 Class 0 kU/L [facility] INSURANCE BILL Allergen P. Notatum <0.08 Class 0 kU/L [facility] INSURANCE BILL Allergen C Herbarum <0.08 Class 0 kU/L [facility] INSURANCE BILL Allergen Aspergillus fumigatus <0.08 Class 0 kU/L [facility] INSURANCE BILL Allergen Mucor racemosus <0.08 Class 0 kU/L [facility] INSURANCE BILL Allergen A Tenuis <0.08 Class 0 kU/L [facility] INSURANCE BILL Allergen Stemphylium botryosum <0.08 Class 0 kU/L [facility] INSURANCE BILL Allergen [place] <0.08 Class 0 kU/L [facility] INSURANCE BILL Allergen Elm <0.08 Class 0 kU/L [facility] INSURANCE BILL Allergen Maple <0.08 Class 0 kU/L [facility] INSURANCE BILL Allergen White [place] <0.08 Class 0 kU/L [facility] INSURANCE BILL Allergen Kosovan [place] <0.08 Class 0 kU/L [facility] INSURANCE BILL Allergen White Esmond <0.08 Class 0 kU/L [facility] INSURANCE BILL Allergen Mountain [place]lin <0.08 Class 0 kU/L [facility] INSURANCE BILL Allergen Short/Common Ragweed <0.08 Class 0 kU/L [facility] INSURANCE BILL Allergen Syrian Plantain <0.08 Class 0 kU/L [facility] INSURANCE BILL Allergen Portuguese Thistle <0.08 Class 0 kU/L [facility] INSURANCE BILL Allergen Rough Pigweed <0.08 Class 0 kU/L [facility] INSURANCE BILL Allergen Sheep [place] <0.08 Class 0 kU/L [facility] INSURANCE BILL Allergen Neetle <0.08 Class 0 kU/L [facility] INSURANCE BILL BLOOD SPECIMEN / Unknown 10/01/2011 11:51 AM BACTERIOLOGY PROFESSOR 10/01/2011 4:08 PM BACTERIOLOGY PROFESSOR Narrative [facility] INSURANCE BILL - 10/04/2011 7:12 AM BACTERIOLOGY PROFESSOR Test(s) [id number] [place], White; [id number] White Esmond; [id number] Pigweed, Rough; [id number]- [id number] Sheep [place](Dock); [id number] Nettle were developed and had performance characteristics determined by [facility]. These tests have not been cleared or approved by the U.S. Food and Drug Administration. The FDA has determined that such clearance or approval is not necessary. These tests are used for clinical purposes. These should not be regarded as investigational or for research. Resulting Agency Comment [facility] [phone] Tre Molina MD LAB - CHEMISTRY SADAF HELM Performing Organization Address City/State/[facility] Co de Phone Number [facility] INSURANCE BILL * (ABNORMAL) IGE BLOOD (10/01/2011 11:51 AM BACTERIOLOGY PROFESSOR) IgE 145(H) 0 - 100 IU/mL [facility] INSURANCE BILL Blood specimen (specimen) BLOOD SPECIMEN / Unknown 10/01/2011 11:51 AM BACTERIOLOGY PROFESSOR 10/01/2011 4:08 PM BACTERIOLOGY PROFESSOR Narrative [facility] INSURANCE BILL - 10/04/2011 7:12 AM BACTERIOLOGY PROFESSOR Test(s) [id number] [place], White; [id number]- [id number] White Esmond; [id number] Pigweed, Rough; [id number]- G199-ZhB Sheep [place](Dock); [id number] Nettle were developed and had performance characteristics determined by [facility]. These tests have not been cleared or approved by the U.S. Food and Drug Administration. The FDA has determined that such clearance or approval is not necessary. These tests are used for clinical purposes. These should not be regarded as investigational or for research. Resulting Agency Comment [address] [phone] Tre Molina MD LAB - CHEMISTRY SADAF HELM Performing Organization Address [facility] Co de Phone Number [facility] INSURANCE BILL * CT CHEST NON CONTRAST (10/01/2011 8:54 AM BACTERIOLOGY PROFESSOR) Anatomical Region Laterality Modality Chest Computed Tomogra phy 10/01/2011 10:2 2 AM BACTERIOLOGY PROFESSOR Impressions 10/01/2011 11:29 AM BACTERIOLOGY PROFESSOR No consolidation. Narrative 10/01/2011 11:[address] THORAX NONCONTRAST CLINICAL INDICATION: Shortness of breath and chronic cough. Asthma. TECHNIQUE: 5 mm images through thorax noncontrast. COMPARISON: April 13, 2011. FINDINGS No consolidation, pleural effusion or a pneumothorax is demonstrated. There is no bulky mediastinal lymphadenopathy. No pericardial effusion is seen. There are degenerative changes of the spine. Images through the upper abdomen show diffuse fatty infiltration to the liver. Procedure Note Marcos Torres MD - 10/01/2011 CT THORAX NONCONTRAST CLINICAL INDICATION: Shortness of breath and chronic cough. Asthma. TECHNIQUE: 5 mm images through thorax noncontrast. COMPARISON: April 13, 2011. FINDINGS No consolidation, pleural effusion or a pneumothorax is demonstrated. There is no bulky mediastinal lymphadenopathy. No pericardial effusion is seen. There are degenerative changes of the spine. Images through the upper abdomen show diffuse fatty infiltration to the liver. IMPRESSION No consolidation. Tre Molina MD CT ORDERABLES * COMPLETE PFT W/WO BRONCHODILATOR (09/25/2011) 09/25/2011 Narrative Transcriptions Tre Molina MD - 09/27/2011 9:19 AM CST [facility] Pulmonary Function Test [facility] PULMONARY FUNCTION TEST REPORT PATIENT: LUCIA BRUNER BMR#: [id number] ADMIT DATE: 09/25/2011CCT#: [id number] DATE OF PROCEDURE: 09/25/2011DOB: 1950 PHYSICIAN: Tre Molina MD SPIROMETRY: Flow volume loop and volume timed curves were examined. Theymeet [place] Thoracic Society criteria for acceptability andreproducibility. The curve is continuous and smooth with sharp rise topeak flow. The patient exhaled for greater than 6 seconds which suggestsreasonable duration of effort. The appearance of the flow volume loop is normal. The ratio of FEV1/FVC is normal. Both FEV1 and FVC are also normal.Spirometry is normal. After bronchodilator, no significant change. LUNG VOLUMES: Lung volumes were measured by nitrogen washout method.Total lung capacity is normal. DIFFUSION CAPACITY: Diffusion capacity was measured by single breath holdmethod. Diffusion capacity is normal. IMPRESSION: Normal spirometry, lung volumes and diffusion capacity. Tre Molina MD SK/MedQ #:[id number] Tre Molina MD RESPIRATORY THERAPY ORDERABLES [facility] * CARDIAC EKG ORDER (05/08/2011 11:01 AM CDT) Only the most recent of4 resultswithin the time period is included. Narrative Transcriptions Document, Scanned - 05/08/2011 11:01 AM CDT Scanned Document CARDIAC SERVICES ORD ERABLES * CT ABDOMEN AND PELVIS WITH IV CONTRAST (05/06/2011 9:20 PM CDT) Anatomical Region Laterality Modality Abdomen, Pelvis Computed Tomogra phy 05/06/2011 9:34 PM CDT Impressions 05/06/2011 9:34 PM CDT Fatty liver No acute findings Narrative 05/06/2011 9:[address] abdomen with contrast CT pelvis with contrast Clinical Indication: Acute abdominal pain, left lower quadrant pain, nausea, vomiting Technique: Axial CT images from the lung bases through the pubic symphysis were obtained following oral and 100 cc Omnipaque-350 intravenous contrast administration. Findings: The small and large bowel are normal in caliber. The appendix is normal. There are no inflammatory changes or fluid collections. There is no adenopathy. There is fatty infiltration of the liver. The spleen, gallbladder, kidneys, adrenal glands, and pancreas are unremarkable. The pelvic organs are unremarkable. The osseous structures are intact. Procedure Note Ailin Canales MD - 05/06/2011 [address] abdomen with contrast CT pelvis with contrast Clinical Indication: Acute abdominal pain, left lower quadrant pain, nausea, vomiting Technique: Axial CT images from the lung bases through the pubic symphysis were obtained following oral and 100 cc Omnipaque-350 intravenous contrast administration. Findings: The small and large bowel are normal in caliber. The appendix is normal. There are no inflammatory changes or fluid collections. There is no adenopathy. There is fatty infiltration of the liver. The spleen, gallbladder, kidneys, adrenal glands, and pancreas are unremarkable. The pelvic organs are unremarkable. The osseous structures are intact. IMPRESSION Fatty liver No acute findings Halina Ware MD CT ORDERABLES * CULTURE URINE (05/06/2011 9:00 PM CDT) Result [facility] Comment: Final CULTURE <10,000 CFU/mL urogenital/skin spencer URINE SPECIMEN OBTAINED BY CLEAN CATCH PROCEDURE / Unknown 05/06/2011 9:00 PM CDT 05/06/2011 9:00 PM CDT Narrative Resulting Agency Comment Performed By [facility];[address];[place] [address] [facility] Generic Ed Physician LAB - MICROBIO LOGY ORDERABLES Performing Organization Address [facility] Co de Phone Number [facility] [address] [place] [address] * (ABNORMAL) URINALYSIS ROUTINE W/REFLEX TO CULTURE (05/06/2011 8:38 PM CDT) Only the most recent of3 resultswithin the time period is included. Color UA YELLOW [facility] Character UA CLEAR [facility] Specific [place] UA 1.005 1.005 - 1.0300 [facility] pH UA 7.5 4.6 - 8.0 pH Units [facility] Leukocyte UA SMALL Negative /ul [facility] Nitrite UA NEGATIVE Negative [facility] Protein UA NEGATIVE Negative mg/dl [facility] Glucose UA NEGATIVE Normal mg/dl [facility] Ketone UA NEGATIVE Negative mg/dl [facility] Urobilinogen UA 0.2 Normal Pamela Units [facility] Bilirubin UA NEGATIVE Negative mg/dl [facility] Blood UA NEGATIVE Negative /ul [facility] WBC UA 5-10(H) <5 /HPF [facility] RBC UA 0-2 <5 /HPF [facility] Epithelial Cell UA 5-10(H) <5 /HPF [facility] Casts UA 0-2 <2 /LPF [facility] Bacteria UA FEW [facility] Urine Culture Reflex to culture, /a [id number] [facility] URINE SPECIMEN OBTAINED BY CLEAN CATCH PROCEDURE / Unknown 05/06/2011 8:38 PM CDT 05/06/2011 8:38 PM CDT Dhaval Cole MD LAB - URINALYSIS ORDERABLES Performing Organization Address [facility] Co de Phone Number [facility] [address] [place] [address] * TROPONIN I (05/06/2011 8:09 PM CDT) [facility] Troponin I < 0.015 SEE BELOW ng/mL [facility] Comment: Normal <0.10 [place] 0.10-0.99 Positive >=1.00 SERUM OR PLASMA SPECIMEN / Unknown 05/06/2011 8:09 PM CDT 05/06/2011 8:09 PM CDT Narrative [facility] - 05/06/2011 8:33 PM CDT Perform on all patients [facility]* Dhaval Cole MD LAB - CHEMISTRY O RDERABLES [facility] [address] [place] [address] * (ABNORMAL) COMPREHENSIVE METABOLIC PANEL (05/06/2011 8:09 PM CDT) [facility] BUN 8 7.0 - 21.0 mg/dl [facility] Sodium 142 136 - 145 mmol/L [facility] Potassium 3.7 3.5 - 5.1 mmol/L [facility] Chloride 108(H) 98.0 - 107.0 mmol/L [facility] Glucose 89 74 - 106 mg/dl [facility] Creatinine 0.56 0.5 - 1.3 mg/dl [facility] AST 19 5 - 40 U/L [facility] Alkaline Phosphatase 96 38 - 126 U/L [facility] Calcium 10.1 8.5 - 10.1 mg/dl [facility] Bilirubin Total 0.6 0.2 - 1.0 mg/dl [facility] Albumin 3.7 3.4 - 5.0 gm/dl [facility] Protein Total 7.6 6.4 - 8.2 gm/dl [facility] CO2 25 22.0 - 30.0 mEq/L [facility] ALT 26 12 - 78 U/L [facility] eGFR by MDRD 111 mL/min/1.7 3m2 [facility] Anion Gap 9.0 [facility] BLOOD SPECIMEN / Unknown 05/06/2011 8:09 PM CDT 05/06/2011 8:09 PM CDT Narrative [facility] - 05/06/2011 8:33 PM CDT Perform for patients with UPPER abd* Dhaval Cole MD LAB - CHEMISTRY O RDERABLES Performing Organization Address [facility]/ZIP Co de Phone Number [facility] [address] [place] [address] * LIPASE BLOOD (05/06/2011 8:09 PM CDT) Lipase 132 73 - 393 U/L [facility] BLOOD SPECIMEN / Unknown 05/06/2011 8:09 PM CDT 05/06/2011 8:09 PM CDT Narrative [facility] - 05/06/2011 8:33 PM CDT Perform for patients with UPPER abd* Dhaval Cole MD LAB - CHEMISTRY O RDERABLES Performing Organization Address [facility] Co de Phone Number [facility] [address] [place] [address] * AMYLASE BLOOD (05/06/2011 8:09 PM CDT) Amylase 29 15 - 115 U/L [facility] BLOOD SPECIMEN / Unknown 05/06/2011 8:09 PM CDT 05/06/2011 8:09 PM CDT Narrative [facility] - 05/06/2011 8:33 PM CDT Perform for patients with UPPER abd* Dhaval Cole MD LAB - CHEMISTRY O RDERABLES Performing Organization Address [facility] Co de Phone Number [facility] [address] [place] [address] * IMAGING/RADIOLOGY/XRAY RESULTS ORDER (04/15/2011 3:36 PM CDT) Anatomical Region Laterality Modality Other Narrative Transcriptions Document, Scanned - 04/15/2011 3:36 PM CDT Scanned Document IMAGING * CT CHEST PE (04/13/2011 2:32 PM CDT) Anatomical Region Laterality Modality Chest Computed Tomogra phy 04/13/2011 2:44 PM CDT Impressions 04/13/2011 2:44 PM CDT No evidence pulmonary embolus. Scattered groundglass opacities are present throughout the lung robb. Small amount of right hilar ramone tissue. Narrative 04/13/2011 2:[address] CHEST WITH CONTRAST INDICATION: Tachycardia TECHNIQUE: The CT scan of the chest is carried out during the administration of 80 cc of Omnipaque 350 utilizing the special pulmonary embolus technique. FINDINGS: The CT scan of the chest is negative. The pulmonary arteries are well seen down the through the fourth order branches and no emboli are identified. The mediastinal and hilar structures are unremarkable. The tracheobronchial airways are widely patent. There are scattered groundglass opacity present from the lung robb. There is a small amount of right hilar ramone tissue. Procedure Note Lamar Cameron MD - 04/13/2011 CT CHEST WITH CONTRAST INDICATION: Tachycardia TECHNIQUE: The CT scan of the chest is carried out during the administration of 80 cc of Omnipaque 350 utilizing the special pulmonary embolus technique. FINDINGS: The CT scan of the chest is negative. The pulmonary arteries are well seen down the through the fourth order branches and no emboli are identified. The mediastinal and hilar structures are unremarkable. The tracheobronchial airways are widely patent. There are scattered groundglass opacity present from the lung robb. There is a small amount of right hilar ramone tissue. IMPRESSION No evidence pulmonary embolus. Scattered groundglass opacities are present throughout the lung robb. Small amount of right hilar ramone tissue. Christian Lloyd DO CT ORDERABLES * HGB HCT PANEL (04/13/2011 2:05 AM CDT) Only the most recent of3 resultswithin the time period is included. Hemoglobin 12.6 12.0 - 16.0 gm/dl [facility] Hematocrit 38.5 36.0 - 48.0 % [facility] BLOOD SPECIMEN / Unknown 04/13/2011 2:05 AM CDT 04/13/2011 3:32 AM CDT Patrizia Mcghee MD LAB - HEMATOLOGY ORD ERABLES [facility] [address] [place] [address] * IP CONSULT TO HOSPITALIST (04/11/2011 2:26 PM CDT) Live Lloyd Rejicortezedwin Lopez DO - 04/11/2011 2:26 PM CDT Rejichaparro Lopez DO Gabino 04/11/2011 2:26 PM Initial Hospitalist Consult Note Date of Consult: 04/11/2011 Patient's Primary Care Physician: Mona Avendano MD Physician Requesting Consult: Patrizia Mcghee MD Reason for Consultation: Evaluation of patient's medical problems. Name: Lucia Bruner Age: 60 y.o. Race: Sex: female Chief Complaint/History of Present Illness This is a 60 y.o. female admitted to the hosptial to undergo a left tka. The procedure was done under general anesthetic and there was 150 mls of blood loss noted. The surgery lasted one hour and 6 minutes. The patient tolerated the procedure well and is seen on the floor for further evaluation. Patient denies complaints of: Headache , Chest Pain, Cough, Dyspnea, Abdominal Pain, nausea, Vomiting, Diarrhea, Constipation, Dysuria. She does c/o dizziness. Past Medical History Diagnosis Date Rosacea Depression Deaf GERD (gastroesophageal reflux disease) PUD (peptic ulcer disease) Anxiety Past Surgical History Procedure Date Breast reduction Bunionectomy w/hammertoe Knee arthroscopy 2005 Left Dilation and curettage Tonsillectomy and adenoidectomy Knee replacement 04/11/2011 LEFT Prescriptions prior to admission Medication Sig Dispense Refill metroNIDAZOLE (METROGEL) 1 % gel Apply to affected area 2 times daily. vitamin B-12 (CYANOCOBALAMIN) 1000 MCG tablet Take 1,000 mcg by mouth once daily. calcium-vitamin D (OS-JESIKA 500 + D) 500-200 MG-UNIT tablet Take 1 Tab by mouth once daily. Vitamin D3 2000 UNIT CAPS Take by mouth once daily after breakfast. vitamin E (TOCOPHERYL) 400 UNIT tablet Take by mouth once daily. Instructed patient to stop 1 week before surgery. fish oil/omega-3 fatty acids (FISH OIL) 1000 MG capsule Take 1,000 mg by mouth once daily after breakfast. Instructed patient to stop 1 week before surgery. magnesium 30 MG tablet Take 30 mg by mouth once daily. multivitamin daily (THERAGRAN) tablet Take 1 Tab by mouth daily with food. pantoprazole EC (PROTONIX) 40 MG tablet Take 40 mg by mouth once daily. Instructed to take AM of surgery Allergies Allergen Reactions Pcn (Penicillins) Unknown History Social History Marital Status: Spouse Name: N/A Number of Children: N/A Years of Education: N/A Occupational History Not on file. Social History Main Topics Smoking status: Never Smoker Smokeless tobacco: Never Used Alcohol Use: No Drug Use: No Sexually Active: Not on file Other Topics Concern Not on file Social History Narrative No narrative on file family history Noncontributory Review of Systems Constitutional: No unexplained fever, sweats. Eyes: Vision stable, no discomfort. Ears, nose, mouth, and throat: deaf Respiratory: No cough, dyspnea, wheezing, pleuritic pain. Cardiovascular: No exertional chest pain, palpitations, edema, claudication. Gastrointestinal: No bleeding, frequent reflux, dysphagia, change in bowels, pain. Genitourinary: No dysuria,frequency, bleeding. Skin: No recent rashes, or pruritus Hematologic/lymphatic: No history of anemia. No abnormal bleeding or bruising. Musculoskeletal: Joint pain Neurological: Stable gait, no numbness, tingling, syncope, dizziness. Behavioral/Psych: No sleep disturbance, memory changes, depression. Endocrine: No fatigue or weight change. Exam Vitals: 04/11/11 1030 04/11/11 1127 04/11/11 1244 04/11/11 1357 BP: 113/69 118/83 118/82 111/81 Pulse: 79 89 102 96 Temp: 97.3 F 98.5 F Resp: 12 12 18 18 Weight: SpO2: 94% 96% 94% 96% General appearance: alert, cooperative, no distress Head: Normocephalic, without trauma Eyes: sclera and conjunctiva clear, EOMI and PERRLA, lids normal Throat: no mucous membrane abnormalities Neck: range of motion is intact, no masses, thyroid not enlarged, no adenopathy. No bruit. Lungs: breath sounds normal and symmetric; no rales or wheezes Heart: regular rhythm, normal S1 and S2, without murmurs, gallops or rubs Abdomen: soft without mass, non-tender, with normal bowel sounds Extremities: no clubbing, cyanosis or edema. knee bandaged Skin: no rashes or other abnormalities are noted Neurologic: mental status normal; alert and oriented X 3; cranial nerves II - XII are grossly intact Data Component Name 04/02/11 1105 12/21/10 0830 WBC -- 11.3* HGB 15.8 15.7 HCT 46.8 46.9 PLTCOUNT -- 241 Component Name 04/02/11 1105 SODIUM 142 POTASSIUM 4.4 CHLORIDE 107 CO2 29 BUN 13 CREATININE 0.88 GLUCOSE 112* CALCIUM 9.7 ALBUMIN -- ALKPHOS -- ALT -- AST -- TBIL -- TPROT -- EGFR 66 No results found for this basename: TROPONIN:3 in the last 34772 hours No results found for this basename: TSH:3 in the last 08256 hours Assessment and Plan 1. S/p left total knee arthroplasty- physical therapy, pain management. Monitor h/h. Dvt proph per orthopedic surgery recommendations. Encourage incentive spirometry. 2. rosacea- continue metrogel 3. Deafness- aware. CC: Patrizia Mcghee MD , Mona Avendano MD Procedure Note Christian Lloyd, DO - 04/11/2011 2:16 PM CDT Initial Hospitalist Consult Note Date of Consult: 04/11/2011 Patient's Primary Care Physician: Mona Avendano MD Physician Requesting Consult: Patrizia Mcghee MD Reason for Consultation: Evaluation of patient's medical problems. Name: Lucia Bruner Age: 60 y.o. Race: Sex: female Chief Complaint/History of Present Illness This is a 60 y.o. female admitted to the hosptial to undergo a left tka.The procedure was done under general anesthetic and there was 150 mls ofblood loss noted. The surgery lasted one hour and 6 minutes. The patienttolerated the procedure well and is seen on the floor for furtherevaluation. Patient denies complaints of: Headache , Chest Pain, Cough,Dyspnea, Abdominal Pain, nausea, Vomiting, Diarrhea, Constipation,Dysuria. She does c/o dizziness. Past Medical History Diagnosis Date Rosacea Depression Deaf GERD (gastroesophageal reflux disease) PUD (peptic ulcer disease) Anxiety Past Surgical History Procedure Date Breast reduction Bunionectomy w/hammertoe Knee arthroscopy 2005 Left Dilation and curettage Tonsillectomy and adenoidectomy Knee replacement 04/11/2011 LEFT Prescriptions prior to admission Medication Sig Dispense Refill metroNIDAZOLE (METROGEL) 1 % gel Apply to affected area 2 times daily. vitamin B-12 (CYANOCOBALAMIN) 1000 MCG tablet Take 1,000 mcg by mouthonce daily. calcium-vitamin D (OS-JESIKA 500 + D) 500-200 MG-UNIT tablet Take 1 Tab bymouth once daily. Vitamin D3 2000 UNIT CAPS Take by mouth once daily after breakfast. vitamin E (TOCOPHERYL) 400 UNIT tablet Take by mouth once daily.Instructed patient to stop 1 week before surgery. fish oil/omega-3 fatty acids (FISH OIL) 1000 MG capsule Take 1,000 mg bymouth once daily after breakfast. Instructed patient to stop 1 week beforesurgery. magnesium 30 MG tablet Take 30 mg by mouth once daily. multivitamin daily (THERAGRAN) tablet Take 1 Tab by mouth daily withfood. pantoprazole EC (PROTONIX) 40 MG tablet Take 40 mg by mouth once daily.Instructed to take AM of surgery Allergies Allergen Reactions Pcn (Penicillins) Unknown History Social History Marital Status: Spouse Name: N/A Number of Children: N/A Years of Education: N/A Occupational History Not on file. Social History Main Topics Smoking status: Never Smoker Smokeless tobacco: Never Used Alcohol Use: No Drug Use: No Sexually Active: Not on file Other Topics Concern Not on file Social History Narrative No narrative on file family history Noncontributory Review of Systems Constitutional: No unexplained fever, sweats. Eyes: Vision stable, no discomfort. Ears, nose, mouth, and throat: deaf Respiratory: No cough, dyspnea, wheezing, pleuritic pain. Cardiovascular: No exertional chest pain, palpitations, edema,claudication. Gastrointestinal: No bleeding, frequent reflux, dysphagia, change inbowels, pain. Genitourinary: No dysuria,frequency, bleeding. Skin: No recent rashes, or pruritus Hematologic/lymphatic: No history of anemia. No abnormal bleeding orbruising. Musculoskeletal: Joint pain Neurological: Stable gait, no numbness, tingling, syncope, dizziness. Behavioral/Psych: No sleep disturbance, memory changes, depression. Endocrine: No fatigue or weight change. Exam Vitals: 04/11/11 1030 04/11/11 1127 04/11/11 1244 04/11/11 1357 BP: 113/69 118/83 118/82 111/81 Pulse: 79 89 102 96 Temp: 97.3 F 98.5 F Resp: 12 18 18 Weight: SpO2: 94% 96% 94% 96% General appearance: alert, cooperative, no distress Head: Normocephalic, without trauma Eyes: sclera and conjunctiva clear, EOMI and PERRLA, lids normal Throat: no mucous membrane abnormalities Neck: range of motion is intact, no masses, thyroid not enlarged, noadenopathy. No bruit. Lungs: breath sounds normal and symmetric; no rales or wheezes Heart: regular rhythm, normal S1 and S2, without murmurs, gallops orrubs Abdomen: soft without mass, non-tender, with normal bowel sounds Extremities: no clubbing, cyanosis or edema. knee bandaged Skin: no rashes or other abnormalities are noted Neurologic: mental status normal; alert and oriented X 3; cranial nervesII - XII are grossly intact Data Component Name 04/02/11 1105 12/21/10 0830 WBC -- 11.3* HGB 15.8 15.7 HCT 46.8 46.9 PLTCOUNT -- 241 Component Name 04/02/11 1105 SODIUM 142 POTASSIUM 4.4 CHLORIDE 107 CO2 29 BUN 13 CREATININE 0.88 GLUCOSE 112* CALCIUM 9.7 ALBUMIN -- ALKPHOS -- ALT -- AST -- TBIL -- TPROT -- EGFR 66 No results found for this basename: TROPONIN:3 in the last 14608 hours No results found for this basename: TSH:3 in the last 19796 hours Assessment and Plan 1. S/p left total knee arthroplasty- physical therapy, pain management.Monitor h/h. Dvt proph per orthopedic surgery recommendations. Encourageincentive spirometry. 2. rosacea- continue metrogel 3. Deafness- aware. CC: Patrizia Mcghee MD , Mona Avendano MD Patrizia Mcghee MD INPATIENT CONSULT OR DERABLES * CULTURE MSSA/MRSA (04/02/2011 11:05 AM CDT) Result [facility] Comment: Final NO growth S.aureus/NO growth S.aureus (MRSA) SPECIMEN FROM NASAL FOSSAE / Unknown 04/02/2011 11:05 AM CDT 04/02/2011 11:24 AM CDT Narrative Resulting Agency Comment Performed By [facility];[address];[place] [address] Patrizia Mcghee MD LAB - MICROBIOLOGY O RDERABLES Performing Organization Address City/[facility] Co de Phone Number [facility] [address] [place] [address] * PT PTT PANEL (12/21/2010 8:30 AM CDT) Pathologist [facility] PT 10.6 9.4 - 11.2 seconds [facility] INR 1.0 SEE BELOW [facility] Comment: 0.9-1.1 Normal 2.0-3.0 Conventional 2.5-3.5 Intensive PTT 26.2 24.0 - 32.0 seconds [facility] BLOOD SPECIMEN / Unknown 12/21/2010 8:30 AM CDT 12/21/2010 8:34 AM CDT Hemant Hernández MD LAB - COAGULATION OR DERABLES Performing Organization Address [facility] Co de Phone Number [facility] [address] [place] [address] * (ABNORMAL) BLOOD GASES + LYTES PANEL (12/03/2008 10:30 AM CDT) pH Arterial 7.478(H) 7.38 - 7.42 pH Units [facility] pCO2 Arterial 28.8(L) 38 - 42 mm Hg [facility] pO2 Arterial 98.0 75 - 100 mm Hg [facility] Base Excess Arterial -1.2 -2 - 2 mmol/L [facility] O2 Saturation Arterial 98.1 92 - 98.5 % [facility] Hemoglobin Arterial 16.2 12 - 18 gm/dl [facility] O2 Content Arterial 22.2 15 - 23 % [facility] Sodium Arterial 137.8 135 - 145 mmol/L [facility] Potassium Arterial 4.01 3.3 - 5.3 mmol/L [facility] Comment Potassium, arterial blood: [facility] Oxyhemoglobin Arterial 97.4(H) 94 - 97 % [facility] Carboxyhemoglobin Arterial 0.5 0.0 - 1.5 % [facility] Methemoglobin 0.2 0.0 - 3.0 % [facility] Calcium Ionized 1.18 1.10 - 1.33 mmol/L [facility] Glucose ART 103 80 - 120 mg/dl [facility] Hematocrit Arterial 48 36 - 54 % [facility] HHB Arterial 1.9 0.0 - 5.0 % [facility] HCO3 Arterial 20.9(L) 22 - 29 mmol/L [facility] FI O2 Arterial 21.0 [facility] Site LEFT RADIAL [facility] TCO2 Arterial 21.8(L) 23.0 - 27.0 mmol/L [facility] ARTERIAL BLOOD SPECIMEN / Unknown 12/03/2008 10:30 AM CDT Weston Clifton MD LAB - BLOOD GASES OR DERABLES [facility] [address] [place] [address] * COMPLETE PFT (12/03/2008 12:00 AM CDT) 12/03/2008 Narrative Procedure Note Weston Clifton MD - 12/03/2008 12:[facility] Test 1.Baseline spirometry reveals normal expiratory flows. 2.Following administration of bronchodilator, there is no significantchange in expiratory flows. 3.Lung volumes demonstrate mild air trappingand hyperinflation. 4.Diffusing capacity is within normal limits. 5.Flow-volume loop has a normal configuration. 6.Arterial blood gases on room air demonstrate no significanthypercapnia or hypoxemia. There is a mild respiratory alkalosis. IMPRESSION: Normal pulmonary function with no evidence of obstructive orrestrictive lung disease. Gas transfer capacity is normal, withoutimpairment of oxygenation or ventilation. Weston Clifton MD Electronically Signed 12/06/2008 08:56:39 CDT [facility]/MedQ #:[id number] Weston Clifton MD RESPIRATORY THERAPY ORDERABLES * CYTOLOGY NON-FLUTE POLISHER PANEL (10/30/2007 2:47 PM CDT) Only the most recent of2 resultswithin the time period is included. Result CASE NUMBER [id number] Comment: ORDERING PHYSICIAN RAJ MALIK JR SPECIMEN TYPE Bronchial Brushing Surgeon DR. RAJ MALIK Physician DR. DERRICK RAMÍREZ Report Text INDICATION FOR PROCEDURE SAB OPERATION BRONCHOSCOPY SPECIMEN RIGHT BRONCHIAL BRUSHING, OIL-RED-O STAIN GROSS RECEIVED FIVE SLIDES. MICROSCOPIC FIVE SMEARS OF RIGHT BRONCHIAL BRUSHING INCLUDING TWO OIL- RED-STAINS WERE EXAMINED. COLUMNAR CELLS, SQUAMOUS CELLS AND INFLAMMATORY CELLS ARE SEEN. NO MALIGNANT CELLS ARE IDENTIFIED. OIL-RED-O STAIN SHOWS OCCASIONAL OIL-RED-O POSITIVE HISTIOCYTES. JW/CS DIAGNOSIS DIAGNOSIS [1] RIGHT BRONCHIAL BRUSHINGS, CYTOLOGY AND OIL-RED-O PREPARATION -- NEGATIVE FOR MALIGNANCY-- OIL-RED-O POSITIVE HISTIOCYTES PRESENT JW/CS Released By DERRICK RAMÍREZ CPT Code 19824, 76147 MISCELLANEOUS SAMPLES / Unknown 10/30/2007 2:47 PM CDT 10/30/2007 2:47 PM CDT Historical Provider LAB - PATHOLOGY/C YTOLOGY ORDERABLES Care Teams Educational Sign Language Interpreter Relationship Specialty Start Date End Date Gifty Willard PCP - General Family Medicine 01/23/24 Gifty Willard Primary Care Provider Family Medicine 01/23/24
--- OUTSIDE RECORDS SUMMARY | 2024-10-07 11:34 | XMS_ITS | Encounter Summary ---
Author Organization [facility] Health Address [facility] [facility] [place] [address] Care Team Providers Care Assistant Clinical Director Name Role Phone Gifty Wlilard Primary Care Provider Gifty Bentley Unavailable Unavailable Reason for Visit * Reason Onset Date Comments Concerns 06/23/2024 Encounter Details Date Type Department Care Team (Late Contact Info) Description 06/23/2024 Telephone [facility] - DISABILITY COUNSELOR [address] [place] [address] Isela Glasgow, AYAKA-TELECOMMUNICATOR [address] [place] [address] Concerns Social History Tobacco Use Types Packs/Day Years Used Date Smoking Tobacco: Never Smokeless Tobacco: Never Alcohol Use Standard Drinks/Week Comments No 0 (1 standard drink = 0.6 oz pur e alcohol) Sex and Gender Information Value Date Recorded Sex Assigned at Not on file Gender Identity Not on file Sexual Orientation Not on file documented as of this encounter Miscellaneous Notes * Telephone Encounter - Etelvina Contreras - 06/23/2024 9:01 AM CST Pt called stating she was seen at er for pain near her ovaries and was told to f/u with her dr to get a usl and wants to know if she would see this dr. SAFETY PHYSICIAN documented in this encounter Plan of Treatment Upcoming Encounters Date Type Department Care Team (Late Contact Info) Description 10/15/2024 10:10 AM CDT Office Visit [facility] - DISABILITY COUNSELOR [address] [place] [phone] Isela Glasgow, BALLET MASTER/MISTRESS-TELECOMMUNICATOR [address] [place] [phone] documented as of this encounter Visit Diagnoses Not on filedocumented in this encounter Care Teams Assistant Clinical Director Relationship Specialty Start Date End Date Gifty Willard PCP - General Family Medicine 01/23/24 Gifty Willard Primary Care Provider Family Medicine 01/23/24 documented as of this encounter
--- OUTSIDE RECORDS SUMMARY | 2024-10-07 11:34 | XMS_ITS | Clinical Summary ---
Author Organization [facility] Address [address] [place] [address] Care Team Providers Care Cup Machine Operator Name Role Phone Gifty Willard Primary Care Provider Unavailabl e Gifty Willard Unavailable Unavailable Source Comments [facility],non-owned Affiliates and Associated Physician Practices is amultiple site organization consisting of ambulatory clinics and hospital sitesin [place], [place] and [place]. This disclosure is being madepursuant to the Care Everywhere program and may not contain all information available regarding this patient. Last updated 18.[facility] Allergies Active Allergy Reactions Criticality Noted Date [...] mouth once daily 03/09/2021 Active nystatin (Mycostatin) [id number] UNIT/GM ointmentIndications :Lichen sclerosus,Vulvar itching Use with [...] Zoster Hzv Vacc Recombinant Inj Im 05/29/2019, Family History Medical History Relation Name Comments CAD (Coronary Artery Disease) Brother 4 CVA Maternal Grandfather Diabetes Mother Heart Failure Mother CAD (Coronary Artery Disease) Sister 5 Heart Failure Sister 6 Stroke Sister 7 Relation Name Status Comments Brother 1 Alive Brother 2 Alive Brother 3 Alive Brother 4 Father Maternal Grandfather Mother Sister 1 Alive Sister 2 Alive Sister 3 Alive Sister 4 Sister 5 Sister 6 Sister 7 Social History Tobacco Use Types Packs/Day Years [...] AM CDT Pulse 79 07/04/2018 12:32 PM DISC RECORDIST Temperature 36.9 C (98.5 F) 11/11/2018 11:00 AM CDT Respiratory Rate 18 07/04/2018 12:32 PM DISC RECORDIST Oxygen Saturation 98% 07/04/2018 12:32 PM DISC RECORDIST Inhaled Oxygen Concentration - - Weight 78.9 kg (174 lb) 04/16/2024 10:31 AM CDT Height 165.1 cm (5' 5 ) 04/16/2024 10:31 AM CDT Body Mass Index 28.96 04/16/2024 10:31 AM CDT Plan of Treatment Upcoming Encounters Date Type Department Care Team (Late st Contact Info) Description 10/15/2024 10:10 AM CDT Office Visit [facility] - POWER PRESS OPERATOR [address] [place] [address] Isela Glasgow APRN-SPORTS JOURNALIST [address] [facility] [address] [place] [address] Health Maintenance Due Date Last Done Comments COLOGUARD (AGES 45-75) - COLON CA SCREENING 1950 COLON MONITORING 1950 COLONOSCOPY - COLON CA SCREENING 1950 CT COLONOGRAPHY - COLON CA SCREENING 1950 Colorectal Cancer Screening 1950 FIT - COLON CA SCREENING 1950 FLEX SIG - COLON CA SCREENING 1950 HEPATITIS C SCREENING 05/09/1969 DTAP/TDAP/TD VACCINES (1 - Tdap) 1970 Respiratory Syncytial Virus (RSV) Vaccine Pt: or over 60 yrs (1 - Risk 60-74 years 1-dose series) 2011 MAMMOGRAM 01/03/2022 01/04/2020 (Done Outside Per Patient), 08/18/2015, 11/06/2013, Additional history exists DIABETES RETINOPATHY SCREENING 03/08/2022 DIABETES-FOOT EXAM WITH MONOFILAMENT 03/08/2022 PNEUMOCOCCAL VACCINE 50+ (2 of 2 - PCV) 08/10/2022 08/10/2021 DIABETES-SERUM CREATININE 01/19/20242022, 01/18/2023, 02/27/2022, Additional history exists COVID-19 VACCINE ( season) 2024 08/11/2021, 10/28/2020, 09/30/2020 INFLUENZA VACCINE (#1) 2024 , 05/23/2020, 05/29/2019, Additional history exists DIABETES-HGB A1C 07/30/2024 01/29/2024, , 05/21/2023, Additional history exists DEPRESSION SCREENING 08/05/2024 DIABETES - URINE PROTEIN SCREENING 08/05/2024 05/21/2023, 12/29/2015, 12/29/2015, Additional history exists MEDICARE AWV CALENDAR YEAR 2024 ZOSTER VACCINE Completed 05/29/2019, 05/20/2018 BONE DENSITY TESTING Completed 02/26/2022, 01/02/20 12 HEPATITIS B VACCINE Aged Out No longe r eligible based on patient's age to complete this topic HIB VACCINE Aged Out No longer eligi ble based on patient's age to complete this topic HPV VACCINE Aged Out No longer eligi ble based on patient's age to complete this topic MENINGOCOCCAL (Group B) VACCINE Aged Out No longer eligible based on patient's age to complete this topic MENINGOCOCCAL VACCINE Aged Out No nancy tyler eligible based on patient's age to complete this topic Procedures Procedure Name Priority Date/Time Associated Diagnosis Comments DEXA BONE DENSITY 2 SITES 02/26/2022 BASIC METABOLIC PANEL (CALCIUM TOTAL) STAT 07/04/2018 4:11 PM DISC RECORDIST from Last 3 Months or Most Recently Relevant to Health Maintenance Results * DEXA BONE DENSITY 2 SITES (02/26/2022) Anatomical Region Laterality Modality Other 02/26/2022 Narrative 02/26/2022 Ordered by an unspecified provider. Scanned Document DEXA ORDERABLES * BASIC METABOLIC PANEL (CALCIUM TOTAL) (07/04/2018 4:11 PM DISC RECORDIST) BUN 11 7 - 26 mg/dL 07/04/2018 4:36 PM [facility] Creatinine 0.7 0.6 - 1.2 mg/dL 07/04/2018 4:36 PM [facility] Sodium 138 136 - 145 mmol/L 07/04/2018 4:36 PM [facility] Potassium 3.9 3.5 - 4.5 mmol/L 07/04/2018 4:36 PM [facility] Chloride 103 98 - 107 mmol/L 07/04/2018 4:36 PM [facility] CO2 25 22 - 29 mmol/L 07/04/2018 4:36 PM [facility] Glucose 88 70 - 115 mg/dL 07/04/2018 4:36 PM [facility] Calcium 9.5 8.4 - 10.2 mg/dL 07/04/2018 4:36 PM [facility] Anion Gap 14 8 - 18 07/04/2018 4:36 PM [facility] BUN/Creatinine Ratio 16 7 - 23 07/04/2018 4:36 PM [facility] Osmolality Calculated 285 270 - 300 mOsm/kg 07/04/2018 4:36 PM [facility] eGFR >60 >60 mL/min/1.7 3 m2 07/04/2018 4:36 PM [facility] Blood BLOOD SPECIMEN / Unknown Venipuncture / Unknown 07/04/2018 4:11 PM DISC RECORDIST 07/04/2018 4:16 PM DISC RECORDIST Usha Anguiano PA-C LAB - CHEMI STRY ORDERABLES [facility] [address] [phone] from Last 3 Months or Most Recently Relevant to Health Maintenance Advance Directives Documents on File Type Date Recorded Patient Technical Sales Director Expl anation Adv Directive/Living Will/POA 02/11/2014 5:15 AM LIVING YU * FULL RESUSCITATION (Latest Code Status on File) Date Activated Date Inactivated Comments 04/11/2011 9:07 AM 04/15/2011 12:59 AM Care Teams Cup Machine Operator Relationship Specialty Start Date End Date Gifty Willard PCP - General Family Medicine 01/23/24 Gifty Willard Primary Care Provider Family Medicine 01/23/24
--- OUTSIDE RECORDS SUMMARY | 2024-10-07 11:34 | XMS_ITS | Encounter Summary ---
Author Organization [facility] Address [facility] [place] [address] Care Team Providers Care Electrical Assistant Name Role Phone Mona Avendano MD Primary Care Provider [phone] Usha Wood MD Primary Care Provider [phone] Usha Wood MD Primary Care Provider [phone] Patrizia Mcghee MD Unavailable [phone] Tres Calzada MD Primary Care Provider [phone] Gifty Willard MD Primary Care Provider [phone] PcpJovan - Primary Care Provider Un available Gifty Willard Primary Care Provider Unavailabl e Gifty Willard Unavailable Unavailable Encounter Details Date Type Department Care Team (Late st Contact Info) Description 10/29/2011 [facility]PT Unknown, Provider Social History Tobacco Use Types Packs/Day Years Used Date Smoking Tobacco: Never Smokeless Tobacco: Never Alcohol Use Standard Drinks/Week Comments No 0 (1 standard drink = 0.6 oz pur e alcohol) Sex and Gender Information Value Date Recorded Sex Assigned at Not on file Gender Identity Not on file Sexual Orientation Not on file documented as of this encounter Plan of Treatment Upcoming Encounters Date Type Department Care Team (Late st Contact Info) Description 10/15/2024 10:10 AM CDT Office Visit [facility] - CLIENT SUCCESS SPECIALIST [address] [facility] [address] [place] [phone] Isela Glasgow WEB PRODUCTION DESIGNER-WIDE AREA NETWORK ADMINISTRATOR [address] [place] [address] documented as of this encounter Visit Diagnoses Not on filedocumented in this encounter Care Teams Electrical Assistant Relationship Specialty Start Date End Date Mona Avendano MD [address] [facility] [address] [place] [address] PCP - General 12/21/10 10/21/13 Usha Wood MD [address] [facility] [address] [place] [address] PCP - General Internal Medicine 10/22/13 12/07/13 Usha Wood MD [address] [facility] [address] [place] [address] PCP - General Internal Medicine 12/08/13 07/03/18 Tres Calzada MD [address] [place] [address] PCP - General Internal Medicine 07/04/18 07/05/22 Gifty Willard MD [address] [facility] [address] [place] [id number] PCP - General 07/06/22 02/28/23 Jovan Fontana Im-Fm PCP - General 03/01/23 10/13/23 Gifty Willard PCP - General Family Medicine 01/23/24 Patrizia Mcghee MD [address] [facility] [address] [place] [address] Orthopedic Surgery 12/08/13 07/03/18 Gifty Willard Primary Care Provider Family Medicine 01/23/24 documented as of this encounter
--- OUTSIDE RECORDS SUMMARY | 2024-10-07 11:34 | XMS_ITS | CONTINUITY OF CARE DOCUMENT ---
Author Name cristo lemons Address Unknown Organization [facility] Address [address] [place] [address] [address] [place] [address] Phone [phone] Care Team Providers Care Quality Rn Name Role Phone TYRELL (retired) ARNOLD SAMANIEGO Unavailable [phone] TYRELL (retired) ARNOLD SAMANIEGO Unavailable [phone] INSURANCE PROVIDERS Payer name Policy type / Coverage type [place] red republican ID [facility]ly [facility], [facility] [id number]
--- OUTSIDE RECORDS SUMMARY | 2024-10-07 11:34 | XMS_ITS | Encounter Summary ---
Author Organization [facility] Address [address] [facility] [place] [address] Care Team Providers Care Building Performance Consultant Name Role Phone Usha Wood MD Primary Care Provider [phone] Patrizia Mcghee MD Unavailable [phone] Tres Calzada MD Primary Care Provider [phone] Gifty Willard MD Primary Care Provider [phone] Pcp, [facility] Depaul - Primary Care Provider Un available Gifty Willard Primary Care Provider Unavailabl e Gifty Willard Unavailable Unavailable Encounter Details Date Type Department Care Team (Late st Contact Info) Description 02/17/2014 Therapy Visit [facility] DEPT Unknown, Provider Social History Tobacco Use [...] CDT Office Visit [facility] - EMS COORDINATOR [address] [facility] [address] [place] [address] Isela Glasgow, TENTER FEEDER-PRODUCTION ASSEMBLY SUPERVISOR [address] [address] documented as of this encounter Visit Diagnoses Not on filedocumented in this encounter Care Teams Building Performance Consultant Relationship Specialty Start Date End Date Usha Wood MD PCP - General Internal Medicine 12/08/13 07/03/18 Tres Calzada MD [address] [place] [address] PCP - General Internal Medicine 07/04/18 07/05/22 Gifty Willard MD [address] [address] PCP - General 07/06/22 02/28/23 Jovan Fontana - PCP - General 03/01/23 10/13/23 Gifty Willard PCP - General Family Medicine 01/23/24 Patrizia Mcghee MD Orthopedic Surgery 12/08/13 07/03/18 Gifty Willard Primary Care Provider Family Medicine 01/23/24 documented as of this encounter
--- OUTSIDE RECORDS SUMMARY | 2024-10-07 11:34 | XMS_ITS | Clinical Summary ---
Author Organization [facility] Address [address] [place] [address] Care Team Providers Care Infectious Diseases Physician Name Role Phone Gifty Willard MD Primary Care Provider Girma Hidalgo MD Unavailable [phone] Rogers Humphries MD, Crystal Unavailable [phone] Allergies Active Allergy Reactions Criticality Noted Date Comments Hydrocodone Dizziness 02/27/2022 Nausea and vomiting as well Penicillins Rash,Itching Low 12/21/2010 Medications metFORMIN 500 MG tabletIndicatio ns:Diabetes Mellitus Take 1 tablet (500 mg total) by mouth 2 (two) times a day. Indications: Diabetes 1 Active Microlet Lancets MiscIndications :Diabetes Mellitus Inject 1 each as directed 3 (three) times daily before meals. Indications: Diabetes 1 Active Calcium Carbonate-Vitam in D (CALCIUM 500 + D) 500-125 MG-UNIT TabIndications: Vitamin and/or Mineral Deficiency Take 1 tablet by mouth daily. Indications: Vitamin and/or Mineral Deficiency 2000 mg daily with Vitamin D3 1 Active gabapentin 300 MG capsule Take 2 capsules (600 mg total) by mouth nightly at bedtime. 1 Active metroNIDAZOLE 1 % gel Apply topically daily. apply to face 2 Active fluticasone propionate 50 MCG/ACT nasal spray 2 sprays by Each Nostril route as needed. 2 Active doxycycline hyclate (VIBRAMYCIN) 100 MG capsule Take 1 capsule (100 mg total) by mouth daily. For rosacea Active omeprazole (PRILOSEC) 40 MG capsule Take 1 capsule (40 mg total) by mouth 2 (two) times daily as needed. 2 Active nystatin (MYCOSTATIN) ointment Apply topically 2 (two) times daily. Active lidocaine (XYLOCAINE) 2 % jelly Active Semaglutide 7 MG Tab Take 7 mg by mouth daily. rybelsus Active aspirin EC (ECOTRIN) 81 MG tablet Take 1 tablet (81 mg total) by mouth daily. 2 Active CONTOUR NEXT TEST test strip 2 Active Glucose Blood (PRECISION QID TEST) test strip 1 each by Other route daily. 2 Active triamcinolone (KENALOG) 0.1 % ointment Apply 1 Dose topically 3 (three) times a week. 3 Active clindamycin (CLEOCIN T) 1 % gel APPLY TOPICALLY TO FACE ONCE DAILY FOR 30 DAYS 3 Active atorvastatin (LIPITOR) 40 MG tablet Take 1 tablet (40 mg total) by mouth daily. Active buPROPion XL (WELLBUTRIN XL) 150 MG 24 hr tablet Take 1 tablet (150 mg total) by mouth after lunch. Active lisinopril (PRINIVIL) 5 MG tablet Take 1 tablet (5 mg total) by mouth daily. Active lidocaine (HM LIDOCAINE PATCH) 4 % patchIndication s:Myelopathy (CMS/HCC [facility]) Place 1 patch onto the skin daily. Remove & Discard patch within 12 hours or as directed by 30 patch 5 3 Active ipratropium (ATROVENT) 0.06 % nasal spray ADMINISTER 2 SPRAYS INTO EACH NOSTRIL 4 TIMES A DAY. 3 Active cefdinir (OMNICEF) 300 MG Cap capsule TAKE 1 CAPSULE BY MOUTH 2 TIMES A DAY FOR 5 DAYS. 3 Active celecoxib (CELEBREX) 400 MG capsule Take 1 capsule (400 mg total) by mouth daily. 4 Active tiZANidine (ZANAFLEX) 4 MG tablet Take 1 tablet (4 mg total) by mouth every 6 (six) hours as needed. 4 Active Active Problems Problem Noted Date Diagnosed Date Carpal tunnel syndrome on left 06/19/2023 Pain in shoulder region after shoulder replaceme nt 03/21/2023 Anal fissure 03/06/2023 Angioneurotic edema 03/06/2023 Bunion 03/06/2023 Carpal tunnel syndrome on right 01/24/2023 Deaf 12/14/2022 Diabetes mellitus ([facility]) 12/14/2022 Overview (12/14/2022): has lost 67# while on rybelsus GERD (gastroesophageal reflux disease) Overview (12/14/2022): 02/23/22 went to [facility] with pain r/t taking aleve, told she had an ulcer, recommended to see GI doctor but has not yet Hyperlipidemia 12/14/2022 Hypertension 12/14/2022 Neuropathy 12/14/2022 ELIZABETH (obstructive sleep apnea) 12/14/2022 Overview (12/14/2022): referred for updated sleep study 01/24. will have sleep study soon, has new PCP and will have another sleep test 03/05/22 due to weight loss, has not used CPAP since 06/2021 Moderate episode of recurren t major depressive disorder ([facility]) 04/30/2022 Overview (06/18/2023): Last Assessment & Plan: Chronic. Controlled with medication. Continue S/P reverse total shoulder arthroplasty, left Lichen sclerosus et atrophicus of the vulva 01/04 Primary osteoarthritis of left shoulder 01/03/20 Muscular deconditioning 02/18/2021 Status post total replacement of right hip 02/16 S/P total hip arthroplasty 02/16/2021 Left knee pain 08/13/2014 Stiffness of knee joint, left 01/22/2014 Lumbosacral spondylosis without myelopathy 12/04 Cataracts, bilateral 07/22/2013 Carpal tunnel syndrome 03/14/2012 Knee joint replacement by other means 09/21/2011 Abnormal CXR (chest x-ray) 09/19/2011 Asthma (HHS/HCC) 09/19/2011 Insomnia 09/19/2011 Sinusitis, chronic 09/19/2011 Allergy 11/29/2010 Degeneration of cervical intervertebral disc 07/2007 Depressive disorder, not elsewhere classified Rosacea 11/18/2003 Resolved Problems Problem Noted Date Diagnosed Date Resolved Date Follow-up examination, jimboo wing other surgery 01/22/2014 01/30/2021 Family History Medical History Relation Comments Diabetes Brother 1 Heart Disease Brother 1 Diabetes Brother 2 Asthma Father COPD Father Pulmonary Fibrosis Father Diabetes Mother Diabetes Sister 1 Heart Disease Sister 1 Diabetes Sister 2 cerebral paulsy Sister 2 Diabetes Sister 3 Diabetes Sister 4 Relation Status Comments Brother 1 Brother 2 Alive Brother 3 suicide Daughter 1 Alive Daughter 2 Alive Father Mother (Age 57) Sister 1 Alive Sister 2 Alive Sister 3 Alive Sister 4 Alive Son Alive Social History Tobacco Use Types Packs/Day Years Used Date Smoking Tobacco: Never Passive Smoke Exposure: Never Smokeless Tobacco: Never Tobacco Cessation:Counseling Given: No Comments:Never Smoked Alcohol Use Standard Drinks/Week Comments Never 0 (1 standard drink = 0.6 oz pur e alcohol) NA PHQ-2 Answer Date Recorded Patient Health Questionnaire-2 Score 0 08/08/2023 Comments No Sex and Gender Information Value Date Recorded Sex Assigned at Not on file Legal Sex Female 2:18 PM CDT Gender Identity Not on file Sexual Orientation Not on file Last Filed Vital Signs Vital Sign Reading Time Taken Comments Blood Pressure 134/81 02/20/2024 9:19 AM CDT Pulse 82 02/20/2024 9:19 AM CDT Temperature 37.3 C (99.1 F) 02/20/2024 9:19 AM CDT Respiratory Rate 16 02/20/2024 9:19 AM CDT Oxygen Saturation 96% 02/20/2024 9:19 AM CDT Inhaled Oxygen Concentration - - Weight 78.9 kg (174 lb) 02/20/2024 9:19 AM CDT Height 165.1 cm (5' 5 ) 02/20/2024 9:19 AM CDT Body Mass Index 28.96 02/20/2024 9:19 AM CDT Plan of Treatment Health Maintenance Due Date Last Done Comments Colorectal Cancer Screening Colonoscopy (10 Years) 1950 Kidney Health Evaluation 1950 Diabetes: Retinopathy Eye Exam 1969 Hepatitis C 1969 Mammogram Screening 1991 DTaP, Tdap and Td Vaccines (1 - Tdap) 08/14/2003 08/13/2003 RSV Immunization or 60+ Years (1 - Risk 60-74 years 1-dose series) 2011 Annual Medicare Wellness Visit 2016 COVID-19 Vaccine ( season) 2024 05/30/2023, 02/08/2022, 08/11/2021, Additional history exists Influenza Adult (#1) 2024 05/29/2019, 05/20/2018, 05/19/2018, Additional history exists Lipid Panel 05/21/2024 05/21/2023, 04/30/2022 Hemoglobin A1C 07/30/2024 01/29/2024, 05/05, 01/18/2023, Additional history exists PHQ-2 (Physician [place]) 08/05/2024 08/08/2023 PHQ-2 (Physician [place]) 08/08/2024 08/08/2023 Zoster Vaccines Completed 05/29/2019, 05/20/2018 Dexa Scan (General) Completed 02/26/2022 Pneumococcal Vaccine: 65+ Years Completed 01/27/2024, 08/10/2021 Meningococcal B Vaccine Aged Out No l onger eligible based on patient's age to complete this topic Meningococcal Vaccine Aged Out No nancy tyler eligible based on patient's age to complete this topic RSV Immunizations Under 20 Months Aged Out No longer eligible based on patient's age to complete this topic Goals Goal Patient Goal Type Associated Problems Recent Progress Patient-Stated? Author Safety - demonstrates understanding of home safety measures General No Vianca Live, RN Health - patient able to perform ADLs independently General No Radha Fraire RN Medical Devices Implanted Type Area Glass Mould Cleaner Device Identifier Shelf Expiration Date Model / Serial / Lot Liner Depuy Acet Altrx Neut 36x52 - [id number] Implanted:Qty: 1 on 02/16/2021 by Humberto Negrete MD at [facility] Hip Components DEPUY [id number] 02/01/2026 [id number] / / [id number] Cup Acetabular Depuy 52mm - [id number] Implanted:Qty: 1 on 02/16/2021 by Humberto Negrete MD at [facility] [employer]PU[employer] [id number] 12/02/2029 [id number] / / [id number] Actis Duofix Hip Prosthesisfemora l Stem Implanted:Qty: 1 on 02/16/2021 by Humberto Negrtee MD at [facility] Hip Components Right: Femur DEPUY SYNTHES [id number] 08/04/2030 1010-06-08 0 / / [id number] Head Depuy Femoral Delta 36mm +1.5 - [id number] Implanted:Qty: 1 on 02/16/2021 by Humberto Negrete MD at [facility] Hip Components Right: Femur DEPUY [id number] 11/02/2025 [id number] / / [id number] Tornier Perform Humeral System Humeral Stem Implanted:Qty: 1 on 03/12/2022 by Girma Hidalgo MD at [facility] Shoulder Components Left: Shoulder [employer] [id number] 10/25/2026 [id number] / [id number] / Tornier Perform Humeral System Retentive Reversed Insert Implanted:Qty: 1 on 03/12/2022 by Girma Hidalgo MD at [facility] Shoulder Components Left: Shoulder [employer] [id number] 02/24/2026 [id number] / [id number] / Aequalis Perform+ Reversed Lateralized Baseplate Implanted:Qty: 1 on 03/12/2022 by Girma Hidalgo MD at [facility] Shoulder Components Left: Shoulder [employer] [id number] 01/28/2025 [id number] / [id number] / Central Screw Implanted:Qty: 1 on 03/12/2022 by Girma Hidalgo MD at [facility] Shoulder Components Left: Shoulder [employer] [id number] / / Peripheral Screw Implanted:Qty: 3 on 03/12/2022 by Girma Hidalgo MD at [facility] Shoulder Components Left: Shoulder [employer] [id number] / / Peripheral Screw Implanted:Qty: 1 on 03/12/2022 by Girma Hidalgo MD at [facility] Shoulder Components Left: Shoulder [employer] [id number] / / Tornier Perform Reversed Standard [place] Implanted:Qty: 1 on 03/12/2022 by Girma Hidalgo MD at [facility] Shoulder Components Left: Shoulder [employer] [id number] 12/28/2026 [id number] / [id number] / Procedures Procedure Name Priority Date/Time Associated Diagnosis Comments HEMOGLOBIN, GLYCOSYLATED Routine 05/21/2023 from Last 3 Months or Most Recently Relevant to Health Maintenance Results * HEMOGLOBIN, GLYCOSYLATED (05/21/2023) HGB A1C 6.0 % 05/21/2023 us Default History Genericprovider LABORATORY Final Result from Last 3 Months or Most Recently Relevant to Health Maintenance Insurance [place] [id number] Advance Directives Documents on File Type Date Recorded Patient Rehab Specialist Expl anation Advance Directives and Living Will 05/16/2022 3:04 PM 03/05/22 [place] [facility] SHORT FORM POA * Full Code (Latest Code Status on File) Date Activated Date Inactivated Comments 03/12/2022 6:41 PM 03/13/2022 3:35 PM * Full Code Date Activated Date Inactivated Comments 02/26/2021 4:47 PM 02/27/2022 11:02 AM * Full Code Date Activated Date Inactivated Comments 02/18/2021 4:36 PM 02/25/2021 4:28 PM * Full Code Date Activated Date Inactivated Comments 02/16/2021 5:29 PM 02/18/2021 4:20 PM Care Teams Infectious Diseases Physician Relationship Specialty Start Date End Date Gifty Willard MD [address] [place] [phone] PCP - General SPORTS MEDICINE 02/13/22 Girma Hidalgo MD [address] [address] [place], [place] [id number] Consulting Physician ORTHOPAEDIC SURGERY 02/27/22 Yeni Mccloud MD [address] [place] [address] [id number] (Work) Consulting Physician HOSPITALIST 03/12/22
--- OUTSIDE RECORDS SUMMARY | 2024-10-07 11:34 | XMS_ITS | Encounter Summary ---
Author Organization [facility] Address [address] [place] [address] Care Team Providers Care Event Sales Manager Name Role Phone Gifty Willard MD Primary Care Provider Girma Hidalgo MD Unavailable [phone] Rogers Humphries MD, Crystal Unavailable [phone] Encounter Details Date Type Department Care Team (Late st Contact Info) Description 03/07/2022 [employer] Message Enc [facility] Orthopedic & Sports Medicine [address] [address] [employer], [facility] Provider question Social History Tobacco Use Types Packs/Day Years [...] Recorded In the last 10 days, have yo u been in contact with someone who was [...] Date Author Status No 02/18/2021 10:00 PM CDT Lamar Cramer RN Active documented in this [...] documented as of this encounter Care Teams Event Sales Manager Relationship Specialty Start Date End Date Gifty Willard MD [address] [place] [id number] PCP - General SPORTS MEDICINE 02/13/22 Girma Hidalgo MD [address] [address] [place] [address] Consulting Physician ORTHOPAEDIC SURGERY 02/27/22 Yeni Mccloud MD [address] [place] [address] [phone] (Work) Consulting Physician HOSPITALIST 03/12/22 documented as of this encounter
--- OUTSIDE RECORDS SUMMARY | 2024-10-07 11:35 | XMS_ITS | Clinical Summary ---
Author Organization 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 60 g 5 019 Active metroNIDAZOLE (METROGEL) 1 % gelIndications:Acne Rosacea Apply topically daily Active nystatin ointment Apply topically 2 (two) times a day Active calcium carbonate-vitamin D3 1,250 mg (500 mg elemental)-400 unit chewable tablet Take 1 tablet by mouth daily Active omeprazole (PriLOSEC) 40 mg capsule Take 1 capsule (40 mg total) by mouth once as needed 022 Active aspirin 81 mg enteric coated tablet TAKE 1 TABLET BY MOUTH 2 TIMES DAILY WITH MEALS FOR 30 DAYS 022 Active blood glucose diagnostic stripIndications:E11.4 2, hgb A1c 6.2 on 04/30, not on insulin 1 each by other route daily 100 each 11 022 Active Microlet Lancet misc FOR DIABETES USE TO TEST BLOOD SUGAR TWO TIMES A DAY Active triamcinolone (KENALOG) 0.1 % ointment USE WITH NYSTATIN OINTMENT AND APPLY TO VULVAR SKIN DAILY 023 Active doxycycline hyclate (VIBRAMYCIN) 50 mg capsuleIndications:ros acea Take 1 capsule (50 mg total) by mouth 2 (two) times a day 023 Active atorvastatin (LIPITOR) 40 mg tabletIndications:Pure hypercholesterolemia TAKE 1 TABLET BY MOUTH EVERY DAY 90 tablet 4 024 Active buPROPion XL (WELLBUTRIN XL) 300 mg 24 hr tabletIndications:Mode rate episode of recurrent major depressive disorder (HCC) TAKE 1 TABLET (300 MG TOTAL) BY MOUTH EVERY MORNING. 90 tablet 1 024 Active metFORMIN (GLUCOPHAGE) 500 mg tablet TAKE 2 TABLETS BY MOUTH TWICE A DAY 360 tablet 1 024 Active ipratropium (ATROVENT) 42 mcg (0.06 %) nasal sprayIndications:rhino rrhea Administer 1 spray into each nostril 4 (four) times a day 15 mL 2 025 Active linaCLOtide (LINZESS) 72 mcg capsule Take 1 capsule (72 mcg total) by mouth daily 30 capsule 025 Active celecoxib (CeleBREX) 400 mg capsule TAKE 1 CAPSULE BY MOUTH EVERY DAY 100 capsule 1 025 Active lisinopriL (PRINIVIL,ZESTRIL) 5 mg tabletIndications:Hype rtension, essential TAKE 1 TABLET BY MOUTH EVERY DAY 90 tablet 1 025 Active gabapentin (NEURONTIN) 300 mg capsule TAKE 2 CAPSULES BY MOUTH EVERY DAY AT NIGHT 180 capsule 1 025 Active semaglutide (Rybelsus) 7 mg tablet Take 1 tablet (7 mg total) by mouth behavioral health tech before breakfast 30 tablet 1 025 Active clindamycin (CLEOCIN T) 1 % gelIndications:Acne Rosacea Apply topically 2 (two) times a day 30 g 3 025 Active semaglutide (Rybelsus) 7 mg tablet Take 1 tablet (7 mg total) by mouth behavioral health tech before breakfast 09/30 Discontinued( Reorder) gabapentin (NEURONTIN) 300 mg capsule TAKE 2 CAPSULES BY MOUTH EVERY DAY AT NIGHT 180 capsule 1 024 09/20 Discontinued lisinopriL (PRINIVIL,ZESTRIL) 5 mg tabletIndications:Hype rtension, essential TAKE 1 TABLET BY MOUTH EVERY DAY 90 tablet 1 024 09/08 Discontinued Active Problems Problem Noted Date Diagnosed Date Mild intermittent asthma without complication Acute right-sided low back pain with right-sided sciatica 12/22/2023 Assessment & Plan (01/27/2024 3:20 PM CDT): Likely cause of her right leg symptoms though could also be some calf generator. Declines PT referral. Monitor. She was given some back as well as calf/Achilles home exercises to try. If not improving over the next 2 months she will let me know. Continue celecoxib Assessment & Plan (12/22/2023 8:35 PM CDT): Increase celebrex to 400mg daily. Zanaflex 4mg every 6 hours as needed for pain/ muscle spasms. X-ray lumbar spine. She is hesitant to do more physical therapy. I was able to explain to her about Pain in shoulder region after shoulder replaceme nt 03/21/2023 Assessment & Plan (09/23/2023 5:17 PM PROCESS IMPROVEMENT ANALYST): Patient's shoulder pain is improving. She notes that things are doing much better. We will continue to monitor this. She has deferred additional therapy as things are getting better. She reports her surgeon is happy with how she is doing Varicose veins of both lower extremities with pa in 03/20/2023 Overview (03/20/2023): Patient notes occasional discomfort. She wants to see somebody for evaluation. Referral to vascular given. Discussed use of compression socks Assessment & Plan (01/27/2024 3:19 PM CDT): Chronic. Occasional calf pain. Vascular recommended just watchful waiting. Assessment & Plan (09/23/2023 5:17 PM PROCESS IMPROVEMENT ANALYST): Patient was previously evaluated by vascular. Patient denies any current major concerns about her calf veins. No signs of current ulceration. Continue supportive care with compression socks. We will monitor Assessment & Plan (03/20/2023 11:44 AM CDT): Asymptomatic reticular vein to lower extremities. Educated patient the importance of utilizing compression therapy, leg elevation, activity. No surgical procedure intervention indicated this time. Follow-up in the office on as-needed basis Bunion 03/06/2023 Carpal tunnel syndrome on left 01/24/2023 Type 2 diabetes mellitus with hypercholesterolem ia 01/18/2023 Assessment & Plan (01/27/2024 3:18 PM CDT): Chronic. Tolerates her statin. Continue. Adjust as needed for LDL goal less than 70 Assessment & Plan (09/23/2023 5:16 PM PROCESS IMPROVEMENT ANALYST): Chronic. Tolerates atorvastatin. Continue. She will be due for updated cholesterol level in a few months. We will plan to obtain at that time and adjust medication if needed to target an LDL goal of less than 70 Assessment & Plan (05/21/2023 8:01 AM CDT): Chronic. On cholesterol medication. Tolerates. Check cholesterol level and adjust as needed Deaf 10/16/2022 Overview (01/18/2023): Requires sign language interpretor for appts Assessment & Plan (09/23/2023 5:16 PM PROCESS IMPROVEMENT ANALYST): Today's office visit was conducted with shoe designer. We will continue use of shoe designer at all visits to aid in communication GERD (gastroesophageal reflux disease) Overview (01/18/2023): continue rx. pt now agreeable to see gi. referral given 02/23/22 went to [facility] with pain r/t taking aleve, told she had an ulcer, recommended to see GI doctor but has not yet Assessment & Plan (01/27/2024 3:18 PM CDT): Chronic. Symptoms have been well-controlled. Denies symptoms. Assessment & Plan (09/23/2023 5:15 PM PROCESS IMPROVEMENT ANALYST): Chronic. Remains on omeprazole. Denies any significant GI issues. No signs of GI intolerance with Rybelsus Assessment & Plan (2022 1:32 PM CDT): Continue ppi and no NSAIDS egd Moderate episode of recurrent major depressive d isorder 04/30/2022 Overview (07/24/2023): Last Assessment & Plan: Chronic. Controlled with medication. Continue Assessment & Plan (01/27/2024 3:18 PM CDT): Chronic. Well-controlled. Continue bupropion. In the future if doing well we may be able to decrease dose. Brief supportive counseling provided Assessment & Plan (09/23/2023 5:15 PM PROCESS IMPROVEMENT ANALYST): Chronic. Patient reports mood is currently well controlled on bupropion. We will continue. Assessment & Plan (05/21/2023 8:01 AM CDT): Chronic. Controlled with medication. Continue S/P reverse total shoulder arthroplasty, left Assessment & Plan (09/23/2023 5:15 PM PROCESS IMPROVEMENT ANALYST): Patient reports her left shoulder is improving. She reports the Orthopedic and neurologist are happy with how she is doing Type 2 diabetes mellitus with diabetic polyneuro linda 01/24/2022 Assessment & Plan (01/27/2024 3:18 PM CDT): Chronic. Controlled. Continue metformin and Rybelsus. Encouraged her to continue working on healthy diabetic diet, regular exercise and weight loss. Diabetic foot exam performed in office Assessment & Plan (09/23/2023 5:13 PM PROCESS IMPROVEMENT ANALYST): Chronic. Well-controlled on labs today. Continue metformin and Rybelsus. Encouraged her to continue working on healthy diabetic diet, regular exercise and weight loss. Stressed importance of scheduling her routine annual eye exam to screen for diabetic eye complications. Diabetic foot exam performed in office Assessment & Plan (05/21/2023 8:01 AM CDT): Chronic. Controlled. Continue current prescription medication. Encouraged healthy diet and lifestyle Hypertension associated with diabetes 01/24/2022 Assessment & Plan (01/27/2024 3:19 PM CDT): Chronic. Controlled. Continue lisinopril Assessment & Plan (09/23/2023 5:13 PM PROCESS IMPROVEMENT ANALYST): Chronic. Well-controlled. Continue Current prescription medication Assessment & Plan (05/21/2023 8:02 AM CDT): Chronic. Controlled with lisinopril. Continue medication History of sleep apnea 01/24/2022 Overview (10/16/2022): Improved with weight loss Assessment & Plan (09/23/2023 5:14 PM PROCESS IMPROVEMENT ANALYST): No longer with sleep apnea. Encouraged her to avoid additional regain of weight as there is risk for recurrence of Sleep apnea with weight gain Assessment & Plan (05/21/2023 8:02 AM CDT): Sleep apnea resolve with prior sleep study Lichen sclerosus et atrophicus of the vulva 01/04 Assessment & Plan (01/27/2024 3:18 PM CDT): Chronic. Follows with gynecology. Has upcoming appointment. Continue care per specialists Assessment & Plan (09/23/2023 5:14 PM PROCESS IMPROVEMENT ANALYST): Chronic. Patient reports symptomatically controlled. She will continue her topical medications. She will follow up with her lab scientist and annually. Lumbosacral spondylosis without myelopathy 12/04 Cataracts, bilateral 07/22/2013 Degeneration of cervical intervertebral disc 07/2007 Rosacea 11/18/2003 Assessment & Plan (01/27/2024 3:18 PM CDT): Chronic. Controlled. Continue doxycycline Assessment & Plan (09/23/2023 5:14 PM PROCESS IMPROVEMENT ANALYST): Chronic. Controlled. Continue topical medication and doxycycline. She will continue working with her junior linux administrator Assessment & Plan (05/21/2023 8:03 AM CDT): Chronic. Controlled with doxycycline and topical rx. Sees derm Resolved Problems Problem Noted Date Diagnosed Date Resolved Date Anal fissure 03/06/2023 09/23/2023 Angioneurotic edema 03/06/2023 09/23/19 24 Neuropathy 12/14/2022 01/18/2023 01/18/2023 ELIZABETH (obstructive sleep apnea) 12/14/2022 01/18/2023 05/21/2023 Overview (01/18/2023): referred for updated sleep study 01/24. will have sleep study soon, has new PCP and will have another sleep test 03/05/22 due to weight loss, has not used CPAP since 06/2021 Hyperlipidemia 01/24/2022 01/18/2023 Primary osteoarthritis of left shoulder 01/24/2022 10/16/2022 Overview (01/24/2022): planning shoulder replacement with ortho. They want MRI to help guide surigcal planning. Pt to work with specialist to get approved Asthma 09/19/2011 05/21/2023 Assessment & Plan (05/21/2023 8:01 AM CDT): Chronic. Controlled. Continue p.r.n. albuterol Allergy 11/29/2010 09/23/2023 Depression, major, in remission 12/05/2005 04/30/2022 Encounters Date Type Department Care Team Description 10/07/2024 Nurse Triage [facility] [address] [phone] Herminio Marie MD 10/05/2024 Orders Only [facility] [address] [phone] Herminio Marie MD 10/05/2024 Telephone [facility] [address] [phone] Herminio Marie MD Medication Problem (Metronidazole gel ) 09/23/2024 Telephone [facility] [address] [phone] Herminio Marie MD Medical Question/Miscellaneous 09/01/2024 Orders Only [facility] [address] [phone] Erna Ferro NP 08/31/2024 Telephone [facility] [address] [phone] Herminio Marie MD Medication Request 08/28/2024 Telephone [facility] [address] [phone] Herminio Marie MD Paperwork drop off 08/25/2024 Telephone [facility] [address] [phone] Herminio Marie MD Medical Question/Miscellaneous 08/13/2024 Telephone [facility] [address] [phone] [phone] Aceves MD 08/13/2024 Telephone [facility] [address] [phone] Jannie Morgan MA 08/12/2024 7:59 PM PROCESS IMPROVEMENT ANALYST - 08/12/2024 11:59 PM PROCESS IMPROVEMENT ANALYST Hospital Encounter [address] [address] Type 2 diabetes mellitus with hypercholesterolemia (HCC); Type 2 diabetes mellitus with diabetic polyneuropathy, without long-term current use of insulin (HCC); Hypertension associated with diabetes (HCC); Need for hepatitis B screening test Discharge Disposition: Discharge to home or self care 08/12/2024 3:00 PM PROCESS IMPROVEMENT ANALYST Lab [facility] [address] [phone] Type 2 diabetes mellitus with diabetic polyneuropathy (HCC) (Primary Dx); Hypertension associated with diabetes (HCC) 08/12/2024 2:15 PM PROCESS IMPROVEMENT ANALYST Office Visit [facility] [address] [phone] Herminio Marie MD Establishing care with new doctor, encounter for (Primary Dx); Type 2 diabetes mellitus with diabetic polyneuropathy, without long-term current use of insulin (HCC); Hypertension associated with diabetes (HCC); Type 2 diabetes mellitus with hypercholesterolemia (HCC); Moderate episode of recurrent major depressive disorder (HCC); Breast cancer screening by mammogram; Need for hepatitis B screening test; Mild intermittent asthma without complication 08/06/2024 Telephone [facility] [address] [phone] Gifty Willard MD Medical Question/Miscellaneous 07/23/2024 Telephone [facility] [address] [phone] Gifty Willard MD Patient assistance for medication from Last 3 Months Immunizations Immunization Administration Dates Next Due COVID-19 mRNA (PFIZER) 0.3 m L (30 mcg) vaccine (12 years and up) 05/30/2023 Influenza, Quadrivalent, Hig h Dose, Preservative Free, Intrr 05/21/2023,04/22/2022,05/24/2021,05/23 Influenza, Trivalent, Adjuva nted, Intramuscular 05/20/2018 Influenza, Trivalent, High D ose, Split, Preservative Free, Intramuscular 05/22/2024,05/29/2019 Influenza, Trivalent, IM (MDV) 05/08/2007 Influenza, Trivalent, Preser vative Free, Intramuscular 05/01/2016 Influenza, Unspecified 05/19/2018 Pneumococcal Conjugate Pcv20 01/27/2024 Pneumococcal Polysaccharide PPV23 08/10/2021 RSV, Bivalent, Protein Subun it Rsvpref, Diluent (Abrysvo) 05/22/2024 Td, adsorbed 08/13/2003 ZOSTER Recombinant 05/29/2019,05/20/2018 Surgical History Surgery Date Site/Laterality Comments TOTAL KNEE ARTHROPLASTY Left TOTAL HIP ARTHROPLASTY 02/16/2021 Right AUGMENTATION MAMMOPLASTY Bilateral BUNIONECTOMY Bilateral REVERSE TOTAL SHOULDER ARTHROPLASTY 03/05/2022 - 04/04/20 22 Left CARPAL TUNNEL RELEASE Left Medical History Medical History Date Comments Type 2 diabetes mellitus (HCC) GERD (gastroesophageal reflux disease) Depression Hypertension Hyperlipidemia Deaf ELIZABETH (obstructive sleep apnea) Primary osteoarthritis of left shoulder 01/25/20 planning shoulder replacement with ortho. They want MRI to help guide surigcal planning. Pt to work with specialist to get approved Carpal tunnel syndrome on right 01/24/2023 Family History Medical History Relation Name Comments Coronary artery disease Brother Stroke Maternal Grandfather Arthritis Maternal Grandmother Diabetes Mother Heart failure Mother Coronary artery disease Sister 1 Heart failure Sister 2 Stroke Sister 3 Relation Name Status Comments Brother Father Maternal Grandfather Maternal Grandmother Mother Sister 1 Sister 2 Sister 3 Social History Tobacco Use Types Packs/Day Years Used Date Smoking Tobacco: Never Smokeless Tobacco: Never Tobacco Cessation:Counseling Given: Not Answered [facility] Utilities Answer Date Recorded In the past 12 months has e Wit studio, gas, oil, or water [employer] threatened to shut off services in your home? No 06/17/2024 Social Connection and Isolat ion Panel [NHANES] Answer Date Recorded In a typical week, how many times do you talk on the phone with family, friends, or neighbors? More than three times a week 06/17/2024 How often do you get togethe r with friends or relatives? More than three times a week 06/17/2024 How often do you attend chur ch or mandaeism services? Never 06/17/2024 Do you belong to any clubs o r organizations such as catholic groups, unions, fraternal or athletic groups, or school groups? No 06/17/2024 How often do you attend meet ings of the clubs or organizations you belong to? Never 06/17/2024 Are you , , di vorced, , never , or living with a partner? 06/17/2024 AUDIT-C Answer Date Recorded Q1: How often do you have a drink containing alcohol? Never 01/27/2024 Q2: How many drinks containi ng alcohol do you have on a typical day when you are drinking? Patient does not drink Q3: How often do you have si x or more drinks on one occasion? Never 01/27/2024 Overall Financial Resource Strain (CARDIA) Answe r Date Recorded How hard is it for you to pa y for the very basics like food, housing, medical care, and heating? Not very hard 06/17/2024 PHQ-2 Answer Date Recorded PHQ-2 Total Score (If total score is 3 or more points, staff should administer the PHQ-9) 0 08/12/2024 Hunger Vital Sign Answer Date Recorded Within the past 12 months, y ou worried that your food would run out before you got the money to buy more. Never true 06/17/20 24 Within the past 12 months, t he food you bought just didn't last and you didn't have money to get more. Never true 06/17/2024 PRAPARE - Transportation Answer Date Re corded In the past 12 months, has l ack of transportation kept you from medical appointments or from getting medications? No 06/05 In the past 12 months, has l ack of transportation kept you from meetings, work, or from getting things needed for daily living? No 06/17/2024 Housing Stability Vital Sign Answer Jarred e Recorded In the last 12 months, was t here a time when you were not able to pay the mortgage or rent on time? No 06/17/2024 In the past 12 months, how m any times have you moved where you were living? 0 06/17/2024 At any time in the past [address] [facility], were you homeless or living in a group home (including now)? No 06/17/2024 Comments No Sex and Gender Information Value Date Recorded Sex Assigned at Not on file Legal Sex Female 4:24 PM PROCESS IMPROVEMENT ANALYST Gender Identity Female 02/06/2022 8:58 AM CDT Sexual Orientation Not on file Obstetrics History Para Term AB IAB SAB Ectopic Multiple Livin g Live Births 3 3 3 3 3 Date Outcome GA Total Labor Labor/2nd/3rd Weight Sex Type Anes PTL Nicole A1 A5 Name Clin 1972 Term 3.544 kg (7 lb 13 oz) F Vag-S pont Living 1974 Term 3.912 kg (8 lb 10 oz) M Vag-S pont Living 1977 Term 4.508 kg (9 lb 15 oz) F Vag-S pont Living Last Filed Vital Signs Vital Sign Reading Time Taken Comments Blood Pressure 100/60 08/12/2024 2:28 PM PROCESS IMPROVEMENT ANALYST Pulse 86 08/12/2024 2:28 PM PROCESS IMPROVEMENT ANALYST Temperature 36.1 C (96.9 F) 08/12/2024 2:28 PM PROCESS IMPROVEMENT ANALYST Respiratory Rate 18 08/12/2024 2:28 PM PROCESS IMPROVEMENT ANALYST Oxygen Saturation 98% 08/12/2024 2:28 PM PROCESS IMPROVEMENT ANALYST Inhaled Oxygen Concentration - - Weight 81.2 kg (179 lb) 08/12/2024 2:28 PM PROCESS IMPROVEMENT ANALYST Height 165.1 cm (5' 5 ) 08/12/2024 2:28 PM PROCESS IMPROVEMENT ANALYST Body Mass Index 29.79 08/12/2024 2:28 PM PROCESS IMPROVEMENT ANALYST Plan of Treatment Health Maintenance Due Date Last Done Comments Hepatitis B Screening 1968 Breast Cancer Screening-Mammogram 05/30/2024 05/30/2023, 08/18/2015, 11/06/2013, Additional history exists Covid-19 Vaccine ( season) 2024 05/22/2024, 05/30/2023, 02/08/2022, Additional history exists Dilated Eye Exam 11/20/2024 09/20/2022, , 01/25/2022 Postponed from 09/20/2023 (Patient declined, but will receive in the future) Fall Risk Assessment 01/26/2025 01/27/2024, 02/15/2023, 01/24/2022 Foot Exam 01/26/2025 01/27/2024, 09/05, 01/18/2023, Additional history exists Well Visit 65+ 01/26/2025 01/27/2024 Albumin Creatinine Ratio, Urine 01/28/2025 01/29/2024, 05/21/2023, 04/30/2022 Hemoglobin A1C 02/09/2025 08/12/2024, 01/04, 09/23/2023, Additional history exists Colon Cancer Screening-Colonoscopy 04/01/2025 04/01/2020, 04/01/2020 DTaP/Tdap/Td Vaccine (1 - Tdap) 08/04/2025 08/13/2003 Postponed from 08/14/2003 (Insurance / Financial) Depression Screening 08/12/2025 08/12/2024, 01/27/2024, 11/21/2023, Additional history exists Lipid Panel 08/12/2025 08/12/2024, 01/04, 05/21/2023, Additional history exists eGFR 08/12/2025 08/12/2024, 01/04, 05/21/2023, Additional history exists Osteoporosis Screening-Bone Density Scan 02/26/2027 02/26/2022, 02/26/2022, 01/02/2012, Additional history exists Zoster Vaccine Completed 05/29/2019, 05/20/2018 Colon Cancer Screening-CT Colonography Discontinued 04/01/2020 Colon Cancer Screening-DNA Stool Discontinued 04/01/2020 Colon Cancer Screening-FIT Discontinued 04/01/2020 Colon Cancer Screening-Sigmoidoscopy Discontinued 04/01/2020 Hepatitis C Screening Completed 04/30/2022 Pneumococcal vaccine 65+ Completed 01/27/2024, 01/2022 Influenza Vaccine Completed 05/22/2024, , 04/22/2022, Additional history exists Procedures Procedure Name Priority Date/Time Associated Diagnosis Comments EGFR Routine 08/12/2024 12:00 PM PROCESS IMPROVEMENT ANALYST Hypertension associated with diabetes (HCC) DIFFERENTIAL AUTO Routine 08/12/2024 12:00 PM PROCESS IMPROVEMENT ANALYST Hypertension associated with diabetes (HCC) CBC WITH AUTO DIFFERENTIAL Routine 08/12/2024 12:00 PM PROCESS IMPROVEMENT ANALYST Hypertension associated with diabetes (HCC) COMPREHENSIVE METABOLIC PANEL Routine 08/12/2024 12:00 PM PROCESS IMPROVEMENT ANALYST Hypertension associated with diabetes (HCC) HEMOGLOBIN A1C Routine 08/12/2024 12:00 PM PROCESS IMPROVEMENT ANALYST Type 2 diabetes mellitus with diabetic polyneuropathy, without long-term current use of insulin (HCC) Hypertension associated with diabetes (HCC) Type 2 diabetes mellitus with hypercholesterolemia (HCC) LIPID PANEL Routine 08/12/2024 12:00 PM PROCESS IMPROVEMENT ANALYST Type 2 diabetes mellitus with hypercholesterolemia (HCC) HEPATITIS B SURFACE ANTIBODY (IMMUNE STATUS) Routine 08/12/2024 12:00 PM PROCESS IMPROVEMENT ANALYST Need for hepatitis B screening test ALBUMIN CREATININE RATIO, URINE Routine 01/29/2024 8:07 AM CDT Encounter for Medicare annual wellness exam Type 2 diabetes mellitus with diabetic polyneuropathy, without long-term current use of insulin (HCC) Hypertension, essential MAMMOGRAPHY Routine 05/30/2023 9:00 AM CDT DIABETES EYE EXAM Routine 09/20/2022 3:25 PM PROCESS IMPROVEMENT ANALYST HEPATITIS C ANTIBODY Routine 04/30/2022 9:50 AM CDT Encounter for hepatitis C screening test for low risk patient DEXA SCAN Routine 02/26/2022 COLONOSCOPY Routine 04/01/2020 from Last 3 Months or Most Recently Relevant to Health Maintenance Results * eGFR (08/12/2024 12:00 PM PROCESS IMPROVEMENT ANALYST) eGFR 67 >=60 mL/min/1. 73 m2 Comment: Interpretive Data Reference Interval Normal >/= 90 mL/min/1.73m2 Mildly decreased* 60 - 89 mL/min/1.73m2 Mildly to moderately decreased 45 - 59 mL/min/1.73m2 Moderately to severely decreased 30 - 44 mL/min/1.73m2 Severely decreased 15 - 29 mL/min/1.73m2 Kidney Failure < 15 mL/min/1.73m2 *Relative to young adult level Estimated glomerular filtration rate is determined by the 2020 CKD-EPI equation recommended by the National [employer] (A Unifying Approach to GFR Estimation: Recommendations of the NKF-ASK Task Force on Reassessing the Inclusion of Race in Diagnosing Kidney Disease, JASN 2020). The CKD-EPI equation should not be used for patients with unstable renal function and has not been validated in children and those over 70. Current interpretive data was last reviewed 2021. Blood 08/12/2024 12:0 0 PM PROCESS IMPROVEMENT ANALYST 08/12/2024 8:49 PM PROCESS IMPROVEMENT ANALYST us Herminio Marie MD LAB BLOOD ORDERABLES Final Result [facility] [address] Department of Laboratories [place], [place] [id number] * Differential, auto (08/12/2024 12:00 PM PROCESS IMPROVEMENT ANALYST) Neutrophil abs 4.7 1.5 - 6.5 K/cumm Imm gran abs 0.0 0.0 - 0.1 K/cumm [facility] Lymphocyte abs 2.4 0.8 - 3.3 K/cumm [facility] Monocyte abs 0.7 0.2 - 0.8 K/cumm [facility] Eosinophil abs 0.2 0.0 - 0.5 K/cumm [facility] Basophil abs 0.1 0.0 - 0.1 K/cumm [facility] Neutrophil pct 57.6 % [facility] Comment: Interpretive Data Percent cell count reference ranges are not reported, since discordance with absolute values may lead to misinterpretation of CBC data. Current Interpretive Data was last revised on 2017. Imm gran pct 0.2 % [facility] Comment: Interpretive Data Percent cell count reference ranges are not reported, since discordance with absolute values may lead to misinterpretation of CBC data. Current Interpretive Data was last revised on 2017. Lymphocyte pct 30.0 % [facility] Comment: Interpretive Data Percent cell count reference ranges are not reported, since discordance with absolute values may lead to misinterpretation of CBC data. Current Interpretive Data was last revised on 2017. Monocyte pct 8.6 % [facility] Comment: Interpretive Data Percent cell count reference ranges are not reported, since discordance with absolute values may lead to misinterpretation of CBC data. Current Interpretive Data was last revised on 2017. Eosinophil pct 2.7 % [facility] Comment: Interpretive Data Percent cell count reference ranges are not reported, since discordance with absolute values may lead to misinterpretation of CBC data. Current Interpretive Data was last revised on 2017. Basophil pct 0.9 % [facility] Comment: Interpretive Data Percent cell count reference ranges are not reported, since discordance with absolute values may lead to misinterpretation of CBC data. Current Interpretive Data was last revised on 2017. Blood 08/12/2024 12:0 0 PM PROCESS IMPROVEMENT ANALYST 08/12/2024 8:33 PM PROCESS IMPROVEMENT ANALYST us Herminio Marie MD LAB BLOOD ORDERABLES Final Result [facility] [address] Department [place] [address] * (ABNORMAL) CBC with auto differential (08/12/2024 12:00 PM PROCESS IMPROVEMENT ANALYST) WBC 8.1 3.8 - 9.9 K/cumm Hgb 14.4 11.9 - 15.5 g/dL [facility] Hct 46.5(H) 35.6 - 45.5 % [facility] Plt 288 150 - 400 K/cumm [facility] MPV 10.2 9.1 - 12.3 fL [facility] RBC 4.85 3.90 - 5.20 M/cumm [facility] MCV 95.9 81.3 - 96.4 fL [facility] MCH 29.7 27.1 - 33.3 pg [facility] MCHC 31.0(L) 32.3 - 35.7 g/dL [facility] RDW CV 13.9 11.1 - 14.9 % [facility] RDW SD 49.2(H) 35.7 - 48.1 fL [facility] NRBC abs 0.00 0.00 - 0.01 K/cumm [facility] Blood 08/12/2024 12:0 0 PM PROCESS IMPROVEMENT ANALYST 08/12/2024 8:33 PM PROCESS IMPROVEMENT ANALYST Result [facility] Herminio Marie MD LAB BLOOD ORDERABLES Final Result Performing Organization Address [facility] Phone Number [facility] [address] [facility] [place] [address] * Hepatitis B surface antibody (immune status) Blood (08/12/2024 12:00 PM PROCESS IMPROVEMENT ANALYST) Pathologist [facility] HBsAb (immune status) Nonreactive Comment: Interpretive Data Nonreactive: This result is consistent with a lack of immunity to Hepatitis B Virus when used in the setting of routine screening. Equivocal: The immune status of the individual should be further assessed, if appropriate, after consideration of clinical status, risk factors, and additional diagnostic information. Reactive: This result is consistent with immunity to Hepatitis B Virus when used in the setting of routine screening. Current interpretive data was last revised on 19. Blood 08/12/2024 12:0 0 PM PROCESS IMPROVEMENT ANALYST 08/12/2024 8:33 PM PROCESS IMPROVEMENT ANALYST Result [facility] Herminio Marie MD LAB MICROBIOLOGY - GENERAL ORDERABLES Final Result Performing Organization Address [facility] Phone Number [facility] [address] [facility] [place] [address] * (ABNORMAL) Hemoglobin A1c (08/12/2024 12:00 PM PROCESS IMPROVEMENT ANALYST) Hgb A1C 6.3(H) 4.0 - 5.6 % Estimated Average Glucose 134 mg/dL JIE Comment: The ADA recommends reporting an estimated Average Glucose (eAG) with all Hemoglobin A1c results using the equation derived from a study of 507 normal and diabetic adults. Minority populations were underrepresented and children were not included. (Diabetes Care 31:8114-4646, 2008). The eAG is not equivalent to a fasting glucose. Blood 08/12/2024 12:0 0 PM PROCESS IMPROVEMENT ANALYST 08/12/2024 8:33 PM PROCESS IMPROVEMENT ANALYST us Herminio Marie MD LAB BLOOD ORDERABLES Final Result [facility] [address] Department [place] [address] * Lipid panel (08/12/2024 12:00 PM PROCESS IMPROVEMENT ANALYST) Cholesterol 154 30 - 199 mg/dL Comment: Interpretive Data Ages < or = 19 years Acceptable: <170 mg/dL Borderline high: 170-199 mg/dL High: >or= 200 mg/dL Ages > or = 20 years Desirable: <200 mg/dL Borderline high: 200-239 mg/dL High: >or= 240 mg/dL Literature References: 1. Expert Panel on Integrated Guidelines for Cardiovascular Health and Risk Reduction in Children and Adolescents. Pediatrics 2011;128:S213 2. NCEP Expert Panel. Circulation 2004;110:227 Current Interpretive Data was last revised on 2018. Triglycerides 139 <=149 mg/dL [facility] MARTINE[facility] Comment: Interpretive Data Ages < or = 9 years Acceptable: <75 mg/dL Borderline high: 75-99 mg/dL High: >or= 100 mg/dL Ages 10 to 20 years Acceptable: <90 mg/dL Borderline high: 90-129 mg/dL High: >or= 130 mg/dL Ages > or = 20 years Desirable: <150 mg/dL Borderline high: 150-199 mg/dL High: 200-499 mg/dL Very high: >or= 499 mg/dL Literature References: 1. Expert Panel on Integrated Guidelines for Cardiovascular Health and Risk Reduction in Children and Adolescents. Pediatrics 2011;128:S213 2. NCEP Expert Panel. Circulation 2004;110:227 Current Interpretive Data was last revised on 2018. HDL 50 >=40 mg/dL [facility] MARTINEZ Comment: Interpretive Data Ages < or = 19 years Acceptable: >45 mg/dL Borderline low: 40-45 mg/dL Low: <40 mg/dL Ages > or = 20 years Desirable: >or= 60 mg/dL Low: <40 mg/dL Literature References: 1. Expert Panel on Integrated Guidelines for Cardiovascular Health and Risk Reduction in Children and Adolescents. Pediatrics 2011;128:S213 2. NCEP Expert Panel. Circulation 2004;110:227 Current Interpretive Data was last revised on 2018. LDL, calculated 80 <=129 mg/dL [facility] MARTINE[facility] Comment: Interpretive Data Ages < or = 19 years Acceptable: <110 mg/dL Borderline high: 110-129 mg/dL High: >or= 130 mg/dL Ages > or = 20 years Optimal: <100 mg/dL Near optimal: 100-129 mg/dL Borderline high: 130-159 mg/dL High: >160 mg/dL Calculated using the Richard LDL-C estimating equation. This equation was implemented on 2024. Prior to this date LDL-C was estimated using the Friedewald equation. Literature References: 1. Expert Panel on Integrated Guidelines for Cardiovascular Health and Risk Reduction in Children and Adolescents. Pediatrics 2011;128:S213 2. NCEP Expert Panel. Circulation 2004;110:227 3. Richard Pierce et al. ELVI Cardiol. 2019December 03;5(5):540-548. doi: 10.1001/jamacardio.2020.0013 Current Interpretive Data was last revised on 2024. Non-HDL Cholesterol 104 mg/dL [facility] MARTINEZ Comment: Interpretive Data Ages < or = 19 years Acceptable: <120 mg/dL Borderline high: 120-144 mg/dL High: >145 mg/dL Ages > or = 20 years When triglycerides are >200 mg/dL, Non-HDL cholesterol is a secondary target of therapy with treatment goals that are 30 mg/dL greater than the LDL cholesterol target. Literature References: 1. Expert Panel on Integrated Guidelines for Cardiovascular Health and Risk Reduction in Children and Adolescents. Pediatrics 2011;128:S213 2. NCEP Expert Panel. Circulation 2004;110:227 Current Interpretive Data was last revised on 2018. Chol/HDL ratio 3 [facility] MARTINEZ Blood 08/12/2024 12:0 0 PM PROCESS IMPROVEMENT ANALYST 08/12/2024 8:33 PM PROCESS IMPROVEMENT ANALYST us Herminio Marie MD LAB BLOOD ORDERABLES Final Result Performing Organization Address [facility]/ZIP Co de Phone Number JIE MARTINEZ [address] Department [place] [address] * Comprehensive metabolic panel (08/12/2024 12:00 PM PROCESS IMPROVEMENT ANALYST) Sodium 143 135 - 145 mmol/L Potassium, pl 4.6 3.3 - 4.9 mmol/L [facility] Chloride 106 97 - 110 mmol/L [facility] CO2 25 22 - 32 mmol/L [facility] Anion gap 12 2 - 15 mmol/L [facility] BUN 10 6 - 25 mg/dL [facility] Creatinine 0.91 0.60 - 1.10 mg/dL [facility] Glucose 104 70 - 199 mg/dL [facility] Comment: Interpretive Data Fasting glucose >/= 126 mg/dl is diagnostic for diabetes. Fasting is defined as no caloric intake for at least 8 hours. Fasting glucose between 100 mg/dl to 125 mg/dl is diagnostic of prediabetes. In a patient with classic symptoms of hyperglycemia or hyperglycemic crisis, a random glucose >/= 200 mg/dl is diagnostic for diabetes. In the absence of unequivocal hyperglycemia, results should be confirmed by repeat testing. The classification and Diagnosis of Diabetes Diabetes Care 2021; 46: S19-S40. Current interpretive data was last revised 2022. Calcium 10.0 8.5 - 10.3 mg/dL [facility] Bilirubin, total 0.5 0.1 - 1.2 mg/dL [facility] Protein, pl 7.1 6.5 - 8.5 g/dL [facility] Albumin 4.2 3.5 - 5.0 g/dL [facility] Alk phos 90 40 - 130 Units/L [facility] ALT 24 7 - 45 Units/L [facility] AST 35 10 - 45 Units/L [facility] Blood 08/12/2024 12:0 0 PM PROCESS IMPROVEMENT ANALYST 08/12/2024 8:33 PM PROCESS IMPROVEMENT ANALYST us Herminio Marie MD LAB BLOOD ORDERABLES Final Result Performing Organization Address [facility]/ZIP Co de Phone Number JIE MARTINEZ [address] Department [place] [address] * Albumin Creatinine Ratio, Urine (01/29/2024 8:07 AM CDT) Albumin Ur <12.0 mg/L Comment: Interpretive Data No reference range established. Current interpretive data was last revised 2018. Creatinine Ur 118.2 mg/dL [facility] Comment: Interpretive Data No reference range established. Current interpretive data was last revised 2018. Albumin Creatinine Ratio, Ur <10 1 - 29 mg/g [facility] Urine 01/29/2024 8:07 AM CDT 01/29/2024 2:53 PM CDT Result [facility] Gifty Willard MD LAB URINE ORDERABLES F inal Result [facility] [address] Department [place] [address] * MAMMOGRAPHY (05/30/2023 9:00 AM CDT) Result [facility] Historical Provider HEALTH MAINTENANCE Final Result * DIABETES EYE EXAM (09/20/2022 3:25 PM PROCESS IMPROVEMENT ANALYST) Result [facility] Provider HEALTH MAINTENANCE Final Result * Hepatitis C antibody (04/30/2022 9:50 AM CDT) Pathologist [facility] Hep C Ab Nonreactive Nonreactive [facility] Comment: Interpretive Data Nonreactive: Antibodies to HCV not detected. Does NOT exclude the possibility of recent exposure to HCV. Equivocal: Equivocal for HCV antibodies. Supplemental molecular testing will be automatically performed to determine infection status in accordance with current CDC screening recommendations. Reactive: Positive for HCV antibodies. This may represent current or past HCV infection. Supplemental molecular testing will be automatically performed to determine current infection status in accordance with current CDC screening recommendations. Interpretive data was last revised on 2019. Blood 04/30/2022 9:50 AM CDT 04/30/2022 3:25 PM CDT Gifty Willard MD LAB MICROBIOLOGY - GEN ERAL ORDERABLES Final Result [facility] MARTINEZ [address] Department [place] [address] * DEXA SCAN (02/26/2022) Scribed Deca Scan Normal Comment:care everywhere Historical Provider HEALTH MAINTENANCE Final Result * COLONOSCOPY (04/01/2020) Scribed Colonoscopy Abnormal Comment:2 small polyps. repe at in 5 yrs 04/01/2020 Historical Provider HEALTH MAINTENANCE Edited Result - Final from Last 3 Months or Most Recently Relevant to Health Maintenance Insurance [facility] AETNA [facility] [employer] Advance Directives For more information, please contact: [phone] * Full Code (Latest Code Status on File) Date Activated Date Inactivated Comments 05/24/2022 9:47 AM 05/24/2022 3:42 PM * Full Code Date Activated Date Inactivated Comments 05/24/2022 9:47 AM 05/24/2022 9:47 AM Care Teams Voting Machine Mechanic Relationship Specialty Start Date End Date Herminio Marie MD [address] [facility] [address] [place] [address] PCP - General Family Medicine 08/12/24 Isela Glasgow, PhD [address] [facility] [address] [place] [address] Referring Physician Obstetrics and Gynecology 01/24/22 Girma Hidalgo MD [address] [address] Referring Physician Orthopedic Surgery 01/27/24 Ana Rosa Will MD [address] [place] [address] Consulting Physician Neurology 01/27/24 Drew Pimentel MD [address] [place] [address] Orthopedic Surgery 01/27/24 Tresa Bello PA [address] [facility] [address] [place] [address] Physician Mold Yard Supervisor Vascular Surgery 01/27/24
--- OUTSIDE RECORDS SUMMARY | 2024-10-07 11:35 | XMS_ITS | Encounter Summary ---
Author Organization [facility] Address [address] [place] [address] Care Team Providers Care Thiokol Operator Name Role Phone Gifty Willard MD Primary Care Provider Girma Hidalgo MD Unavailable [phone] Rogers Humphries MD, Crystal Unavailable [phone] Encounter Details Date Type Department Care Team (Late st Contact Info) Description 01/30/2023 MyChart Message Enc [facility] Medical Group [facility] [address] [place], [place] [address] Mychart, [facility] Provider Air Quality Message Social History Tobacco Use Types Packs/Day Years Used Date Smoking Tobacco: Never Smokeless Tobacco: Never Comments:non smoker Alcohol Use Standard Drinks/Week Comments Never 0 (1 standard drink = 0.6 oz pur e alcohol) NA PHQ-2 Answer Date Recorded Patient Health Questionnaire-2 Score 0 12/14/2022 Comments No Sex and Gender Information Value Date Recorded Sex Assigned at Not on file Legal Sex Female 2:18 PM CDT Gender Identity Not on file Sexual Orientation Not on file COVID-19 Exposure Response Date Recorded In the last 10 days, have yo u been in contact with someone who was confirmed or suspected to have Coronavirus/COVID-19? No / Unsure 01/15/2023 10:43 AM CDT documented as of this encounter Functional Status * RETIRED Are you deaf or do you have serious difficulty hearing Answer Date of Assessment Author Status Yes 03/12/2022 6:27 PM CDT Activ e * RETIRED Are you blind or do you have serious difficulty seeing, even when wearing glasses? Answer Date of Assessment Author Status No 03/12/2022 6:27 PM CDT Activ e * Do you have serious difficulty walking or climbing stairs? Answer Date of Assessment Author Status No 03/12/2022 6:27 PM CDT Lisa Hills RN Active * Do you have difficulty dressing or bathing? Answer Date of Assessment Author Status No 03/12/2022 6:27 PM CDT Lisa Hills RN Active * Because of a physical, mental, or emotional condition, do you have difficulty doing errands alone such as visiting a doctor's office or shopping? Answer Date of Assessment Author Status No 03/12/2022 6:27 PM CDT Lisa Hills RN Active documented as of this encounter Mental Status * Because of a physical, mental, or emotional condition, do you have serious difficulty concentrating, remembering, or making decisions? Answer Entry Date Author Status No 03/12/2022 6:27 PM CDT Lisa Hills RN Active documented in this encounter Plan [...] documented as of this encounter Care Teams Thiokol Operator Relationship Specialty Start Date End Date Gifty Willard MD [address] [place] [address] PCP - General SPORTS MEDICINE 02/13/22 Girma Hidalgo MD [address] [address] [place] [address] Consulting Physician ORTHOPAEDIC SURGERY 02/27/22 Yeni Mccloud MD [address] [place] [address] [phone] (Work) Consulting Physician HOSPITALIST 03/12/22 documented as of this encounter
--- OUTSIDE RECORDS SUMMARY | 2024-10-07 11:35 | XMS_ITS | Encounter Summary ---
Author Organization [facility] Address [address] [place] [address] Care Team Providers Care Trading Analyst Name Role Phone Isela Glasgow PhD Unavailable [phone] Girma Hidalgo MD Unavailable [phone] Ana Rosa Will MD Unavailable [phone] Drew Pimentel MD Unavailable [phone] Tresa Bello Unavailable [phone] Herminio Marie MD Primary Care Provider [phone] Reason for Visit * Reason Onset Date Comments Dizziness 10/07/2024 Vomiting 10/07/2024 Encounter Details Date Type Department Care Team (Late st Contact Info) Description 10/07/2024 Nurse Triage [facility] Medical Group Primary Care at [address] [address] Herminio Marie MD [address] [place] [address] [address] [place] [address] Social History Tobacco Use Types Packs/Day Years Used Date Smoking Tobacco: Never Smokeless Tobacco: Never [facility] Utilities Answer Date Recorded In the past 12 months has e electric, gas, oil, or water company threatened to shut off services in your [...] often do you attend chur ch or anabaptism services? Never 06/17/2024 Do you belong to any clubs o r organizations such as muslim groups, unions, fraternal or athletic groups, or [...] any time in the past 12 m [facility], were you homeless or living in a custodial (including now)? No 06/17/2024 Comments No Sex and Gender Information Value Date Recorded Sex Assigned at Not on file Legal Sex Female 4:24 PM CHANNEL WORKER Gender Identity Female 02/06/2022 8:58 AM CDT Sexual Orientation Not on file documented as of this encounter Miscellaneous Notes * Telephone Encounter - Norma Ramsey RN - 10/07/2024 9:04 AM CST Lucia Bruner is calling with c/o vomiting since 4 am this morning with lightheadedness/dizziness. Pt is vomiting when call connected through communications manager services. Pt states she is sweating and reallysick. Pt states she has vomited about 20 times this morning. She is not able to eat or hold fluids d own. She is attempting to drink water and sprite but vomits. She has abdominal pain. Reports BS of 123 this morning. Denies vomiting blood. RN advised to proceed to ED/UC. Pt states she cannot drive herself but will ask her daughter. Pt's daughter calling Pt at end of call so RN disconnected so shecould discuss recommendations with daughter. Care advice reviewed- small amounts of fluid at a time, rest, no food until can keep fluids down. Advised pt to call back if symptoms worsen or with any other concerns/questions. Pt verbalized understanding. Reason for Disposition SEVERE vomiting (e.g., 6 or more times/day) (Exception: Patient sounds well, is drinking liquids, does not sound dehydrated, and vomiting has lasted less than 24 hours.) Protocols used: [id number] NEL WORKER * Telephone Encounter - Norma Ramsey RN - 10/07/2024 8:58 AM CST Regarding: Lightheadedness ----- Message from Marlen Pierce sent at 10/07/2024 8:56 AM CHANNEL WORKER ----- Symptom Based Call Chief Complaint(s): Lightheadedness Duration: Since 4 am this morning What type of symptom(s) is the patient experiencing? Red Flag. Is the patient concerned they are experiencing a medical emergency requiring an ambulance? No Additional Comments: Patient called in with communications manager on the line states that she has been vomiting all morning a total of 20 times, says that she get nauseous and shaky before vomiting and unable to hold down even water Does message need to be routed? Yes-Action Needed NEL WORKER documented in this encounter Plan of Treatment Not on file documented as of this encounter Visit Diagnoses Not on filedocumented in this encounter Care Teams Trading Analyst Relationship Specialty Start Date End Date Herminio Marie MD [address] [facility] [address] [place] [address] PCP - General Family Medicine 08/12/24 Isela Glasgow, PhD [address] [place] [address] [address] [place] [address] Referring Physician Obstetrics and Gynecology 01/24/22 Girma Hidalgo MD [address] [address] Referring Physician Orthopedic Surgery 01/27/24 Ana Rosa Will MD [address] [place], [place] [id number] Consulting Physician Neurology 01/27/24 Drew Pimentel MD [address] [place] [address] Orthopedic Surgery 01/27/24 Tresa Bello PA [address] [address] Physician Home Visit Field Care Manager Vascular Surgery 01/27/24 documented as of this encounter
--- OUTSIDE RECORDS SUMMARY | 2024-10-07 11:35 | XMS_ITS | Encounter Summary ---
Author Organization [facility] Address [address] [place] [address] Care Team Providers Care Lcsw Name Role Phone Gifty Willard MD Primary Care Provider Girma Hidalgo MD Unavailable [phone] Rogers Humphries MD, Crystal Unavailable [phone] Encounter Details Date Type Department Care Team (Late st Contact Info) Description 03/19/2022 Gotcha Ninjas Message Enc [facility] Medical Group Orthopedic & Sports Medicine [address] [address] [employer], [facility] Provider medication request Social History Tobacco Use Types Packs/Day Years [...] suspected to have Coronavirus/COVID-19? No / Unsure 03/12/2022 7:43 AM CDT documented as of this encounter [...] documented as of this encounter Care Teams Lcsw Relationship Specialty Start Date End Date Gifty Willard MD [address] [place] [id number] PCP - General SPORTS MEDICINE 02/13/22 Girma Hidalgo MD [address] [address] [place] [address] Consulting Physician ORTHOPAEDIC SURGERY 02/27/22 Yeni Mccloud MD [address] [place] [address] [phone] (Work) Consulting Physician HOSPITALIST 03/12/22 documented as of this encounter
--- OUTSIDE RECORDS SUMMARY | 2024-10-07 11:35 | XMS_ITS | Encounter Summary ---
Author Organization [facility] Healthcare Address [address] [place] [address] Care Team Providers Care Hospital Account Manager Name Role Phone Isela Glasgow PhD Unavailable [phone] Girma Hidalgo MD Unavailable [phone] Ana Rosa Will MD Unavailable + [phone] Drew Pimentel MD Unavailable [phone] Tresa Bello Unavailable [phone] Herminio Marie MD Primary Care Provider [phone] Reason for Visit * Reason Onset Date Comments Medication Problem 10/05/2024 Metronidazole gel Encounter Details Date Type Department Care Team (Late st Contact Info) Description 10/05/2024 Telephone [facility] Primary Care at [address] [address] Herminio Marie MD [address] [place] [address] [address] [place] [address] Medication Problem (Metronidazole gel ) Social History Tobacco Use Types Packs/Day Years Used Date Smoking Tobacco: Never Smokeless Tobacco: Never [facility] Utilities Answer Date Recorded In the [...] often do you attend chur ch or quaker services? Never 06/17/2024 Do you belong to any clubs o r organizations such as latter day groups, unions, fraternal or athletic groups, or [...] any time in the past 12 m [facility], were you homeless or living in a fci (including now)? No 06/17/2024 Comments No Sex and Gender Information Value Date Recorded Sex Assigned at Not on file Legal Sex Female 4:24 PM SCHOOL EXAMINER Gender Identity Female 02/06/2022 8:58 AM CDT Sexual Orientation Not on file documented as of this encounter Miscellaneous Notes * Telephone Encounter - Ginny Christiansen MA - 10/06/2024 4:15 PM CST Tried calling pt but number is not accepting calls at this time. Sent Back& message. OL EXAMINER * Telephone Encounter - Ginny Christiansen MA - 10/05/2024 9:14 AM CST Pt called in stating the metronidazole gel is not covered by her insurance and is is to expensive to pay out of pocket. She is wanting to know if there may be something else she can try. P: [phone] OL EXAMINER documented in this encounter Plan of Treatment Not on file documented as of this encounter Visit Diagnoses Not on filedocumented in this encounter Care Teams Hospital Account Manager Relationship Specialty Start Date End Date Herminio Marie MD [address] [facility] [address] [place] [address] PCP - General Family Medicine 08/12/24 Isela Glasgow, PhD [address] [facility] [address] [place] [address] Referring Physician Obstetrics and Gynecology 01/24/22 Girma Hidalgo MD [address] [address] Referring Physician Orthopedic Surgery 01/27/24 Ana Rosa Will MD [address] [place] [address] Consulting Physician Neurology 01/27/24 Drew Pimentel MD [address] [place] [address] Orthopedic Surgery 01/27/24 Tresa Bello PA [address] [facility] [address] [address] Physician Snow Groomer Vascular Surgery 01/27/24 documented as of this encounter
--- OUTSIDE RECORDS SUMMARY | 2024-10-07 11:35 | XMS_ITS | Referral Summary ---
Author Organization [facility] Address [address] [place] [address] Care Team Providers Care Gis Physical Scientist Name Role Phone Umu Glasgowan Abdoulaye PhD Unavailable Girma Hidalgo MD Unavailable [phone] Ana Rosa Will MD Unavailable [phone] Drew Pimentel MD Unavailable [phone] Tersa Bello Unavailable [phone] Herminio Marie MD Primary Care Provider Encounters Date Type Department Care Team Description 10/07/2024 Nurse Triage [facility] Primary Care at [address] [address] Herminio Marie MD 10/05/2024 Orders Only [facility] Primary Care at [address] [address] Herminio Marie MD 10/05/2024 Telephone [facility] Primary Care at [address] [address] Herminio Marie MD Medication Problem (Metronidazole gel ) 09/23/2024 Telephone [facility] Primary Care at [address] [address] Herminio Marie MD Medical Question/Miscellaneous 09/01/2024 Orders Only [facility] Primary Care at [address] [address] Erna Ferro NP 08/31/2024 Telephone [facility] Primary Care at [address] [address] Herminio Marie MD Medication Request 08/28/2024 Telephone [facility] Primary Care at [address] [address] Herminio Marie MD Paperwork drop off 08/25/2024 Telephone [facility] Primary Care at [address] [address] Herminio Marie MD Medical Question/Miscellaneous 08/13/2024 Telephone [facility] Primary Care at [address] [address] Herminio Marie MD 08/13/2024 Telephone [facility] Primary Care at [address] [address] Jannie Morgan MA 08/12/2024 7:59 PM MAIL PROCESSING ASSOCIATE - 08/12/2024 11:59 PM MAIL PROCESSING ASSOCIATE Hospital Encounter [address] [address] Type 2 diabetes mellitus with hypercholesterolemia (HCC); Type 2 diabetes mellitus with diabetic polyneuropathy, without long-term current use of insulin (HCC); Hypertension associated with diabetes (HCC); Need for hepatitis B screening test Discharge Disposition: Discharge to home or self care 08/12/2024 3:00 PM MAIL PROCESSING ASSOCIATE Lab [facility] at [address] [address] Type 2 diabetes mellitus with diabetic polyneuropathy (HCC) (Primary Dx); Hypertension associated with diabetes (HCC) 08/12/2024 2:15 PM MAIL PROCESSING ASSOCIATE Office Visit [facility] Primary Care at [address] [address] Herminio Marie MD Establishing care [...] Mild intermittent asthma without complication 08/06/2024 Telephone [facility] Primary Care at [address] [address] Gifty Willard MD Medical Question/Miscellaneous 07/23/2024 Telephone [facility] Primary Care at [address] [address] Gifty Willard MD Patient assistance for medication from Last 3 Months Allergies Active Allergy Reactions Criticality Noted Date Comments Duloxetine Redness Low 02/24/2007 Hydrocodone Dizziness Low 02/27/2022 Nausea and vomiting as well Penicillins Medications clobetasol (TEMOVATE) 0.05 % ointment Apply to vulva twice daily. 60 g 5 Active metroNIDAZOLE (METROGEL) 1 % gelIndications:Acne Rosacea Apply topically daily Active nystatin ointment Apply topically 2 (two) times a day Active calcium carbonate-vitamin D3 1,250 mg (500 mg elemental)-400 unit chewable tablet Take 1 tablet by mouth daily Active omeprazole (PriLOSEC) 40 mg capsule Take 1 capsule (40 mg total) by mouth once as needed Active aspirin 81 mg enteric coated tablet TAKE 1 TABLET BY MOUTH 2 TIMES DAILY WITH MEALS FOR 30 DAYS Active blood glucose diagnostic stripIndications:E11.4 2, hgb A1c 6.2 on 04/30, not on insulin 1 each by other route daily 100 each 11 Active Microlet [facility] FOR DIABETES USE TO TEST BLOOD SUGAR [...] 1 tablet (7 mg total) by mouth water regulator and valve repairer before breakfast 30 tablet 1 025 Active clindamycin (CLEOCIN T) 1 % gelIndications:Acne Rosacea Apply topically 2 (two) times a day 30 g 3 025 Active semaglutide (Rybelsus) 7 mg tablet Take 1 tablet (7 mg total) by mouth water regulator and valve repairer before breakfast 09/30 Discontinued( Reorder) gabapentin (NEURONTIN) [...] 03/21/2023 Assessment & Plan (09/23/2023 5:17 PM MAIL PROCESSING ASSOCIATE): Patient's shoulder pain is improving. She notes [...] waiting. Assessment & Plan (09/23/2023 5:17 PM MAIL PROCESSING ASSOCIATE): Patient was previously evaluated by vascular. Patient [...] 71 Assessment & Plan (09/23/2023 5:16 PM MAIL PROCESSING ASSOCIATE): Chronic. Tolerates atorvastatin. Continue. She will be [...] appts Assessment & Plan (09/23/2023 5:16 PM MAIL PROCESSING ASSOCIATE): Today's office visit was conducted with time signal wirer. We will continue use of time signal wirer at all visits to aid in communication GERD (gastroesophageal reflux disease) 2 Overview (01/18/2023): continue rx. pt now agreeable to see gi. referral given 02/23/22 went to [facility] with pain r/t taking aleve, told she had an ulcer, recommended to see GI doctor but has not yet Assessment & Plan (01/27/2024 3:18 PM CDT): Chronic. Symptoms have been well-controlled. Denies symptoms. Assessment & Plan (09/23/2023 5:15 PM MAIL PROCESSING ASSOCIATE): Chronic. Remains on omeprazole. Denies any significant [...] provided Assessment & Plan (09/23/2023 5:15 PM MAIL PROCESSING ASSOCIATE): Chronic. Patient reports mood is currently well controlled on bupropion. We will continue. Assessment & Plan (05/21/2023 8:01 AM CDT): Chronic. Controlled with medication. Continue S/P reverse total shoulder arthroplasty, left Assessment & Plan (09/23/2023 5:15 PM MAIL PROCESSING ASSOCIATE): Patient reports her left shoulder is improving. [...] office Assessment & Plan (09/23/2023 5:13 PM MAIL PROCESSING ASSOCIATE): Chronic. Well-controlled on labs today. Continue metformin [...] lisinopril Assessment & Plan (09/23/2023 5:13 PM MAIL PROCESSING ASSOCIATE): Chronic. Well-controlled. Continue Current prescription medication Assessment & Plan (05/21/2023 8:02 AM CDT): Chronic. Controlled with lisinopril. Continue medication History of sleep apnea 01/24/2022 Overview (10/16/2022): Improved with weight loss Assessment & Plan (09/23/2023 5:14 PM MAIL PROCESSING ASSOCIATE): No longer with sleep apnea. Encouraged her [...] specialists Assessment & Plan (09/23/2023 5:14 PM MAIL PROCESSING ASSOCIATE): Chronic. Patient reports symptomatically controlled. She will continue her topical medications. She will follow up with her project production engineer and annually. Lumbosacral spondylosis without myelopathy 12/04 Cataracts, bilateral 07/22/2013 Degeneration of cervical intervertebral disc 07/2007 Rosacea 11/18/2003 Assessment & Plan (01/27/2024 3:18 PM CDT): Chronic. Controlled. Continue doxycycline Assessment & Plan (09/23/2023 5:14 PM MAIL PROCESSING ASSOCIATE): Chronic. Controlled. Continue topical medication and doxycycline. She will continue working with her process engineering intern Assessment & Plan (05/21/2023 8:03 AM CDT): [...] 09/23/2023 Depression, major, in remission 12/05/2005 04/30/2022 Immunizations Immunization Administration Dates Next Due COVID-19 [...] 05/22/2024 Td, adsorbed 08/13/2003 ZOSTER Recombinant 05/29/2019,05/20/2018 Social History Tobacco Use Types Packs/Day Years Used Date Smoking Tobacco: Never Smokeless Tobacco: Never Tobacco Cessation:Counseling Given: Not Answered [facility] Goshiities Answer Date Recorded In the past 12 months has [employer], or water [employer] threatened to shut off services in your [...] 06/17/2024 How often do you attend chur or gnosticism services? Never 06/17/2024 Do you belong to any clubs o r organizations such as tenriism groups, unions, fraternal or athletic groups, or [...] any time in the past 12 m [facility], were you homeless or living in a longterm (including now)? No 06/17/2024 Comments No Sex and Gender Information Value Date Recorded Sex Assigned at Not on file Legal Sex Female 4:24 PM MAIL PROCESSING ASSOCIATE Gender Identity Female 02/06/2022 8:58 AM CDT Sexual Orientation Not on file Last Filed Vital Signs Vital Sign Reading Time Taken Comments Blood Pressure 100/60 08/12/2024 2:28 PM MAIL PROCESSING ASSOCIATE Pulse 86 08/12/2024 2:28 PM MAIL PROCESSING ASSOCIATE Temperature 36.1 C (96.9 F) 08/12/2024 2:28 PM MAIL PROCESSING ASSOCIATE Respiratory Rate 18 08/12/2024 2:28 PM MAIL PROCESSING ASSOCIATE Oxygen Saturation 98% 08/12/2024 2:28 PM MAIL PROCESSING ASSOCIATE Inhaled Oxygen Concentration - - Weight 81.2 kg (179 lb) 08/12/2024 2:28 PM MAIL PROCESSING ASSOCIATE Height 165.1 cm (5' 5 ) 08/12/2024 2:28 PM MAIL PROCESSING ASSOCIATE Body Mass Index 29.79 08/12/2024 2:28 PM MAIL PROCESSING ASSOCIATE Plan of Treatment Not on file Procedures Procedure Name Priority Date/Time Associated Diagnosis Comments EGFR Routine 08/12/2024 12:00 PM MAIL PROCESSING ASSOCIATE Hypertension associated with diabetes (HCC) DIFFERENTIAL AUTO Routine 08/12/2024 12:00 PM MAIL PROCESSING ASSOCIATE Hypertension associated with diabetes (HCC) CBC WITH AUTO DIFFERENTIAL Routine 08/12/2024 12:00 PM MAIL PROCESSING ASSOCIATE Hypertension associated with diabetes (HCC) COMPREHENSIVE METABOLIC PANEL Routine 08/12/2024 12:00 PM MAIL PROCESSING ASSOCIATE Hypertension associated with diabetes (HCC) HEMOGLOBIN A1C Routine 08/12/2024 12:00 PM MAIL PROCESSING ASSOCIATE Type 2 diabetes mellitus with diabetic polyneuropathy, without long-term current use of insulin (HCC) Hypertension associated with diabetes (HCC) Type 2 diabetes mellitus with hypercholesterolemia (HCC) LIPID PANEL Routine 08/12/2024 12:00 PM MAIL PROCESSING ASSOCIATE Type 2 diabetes mellitus with hypercholesterolemia (HCC) HEPATITIS B SURFACE ANTIBODY (IMMUNE STATUS) Routine 08/12/2024 12:00 PM MAIL PROCESSING ASSOCIATE Need for hepatitis B screening test ALBUMIN CREATININE RATIO, URINE Routine 01/29/2024 8:07 AM CDT Encounter for Medicare annual wellness exam Type 2 diabetes mellitus with diabetic polyneuropathy, without long-term current use of insulin (HCC) Hypertension, essential MAMMOGRAPHY Routine 05/30/2023 9:00 AM CDT DIABETES EYE EXAM Routine 09/20/2022 3:25 PM MAIL PROCESSING ASSOCIATE HEPATITIS C ANTIBODY Routine 04/30/2022 9:50 AM CDT Encounter for hepatitis C screening test for low risk patient DEXA SCAN Routine 02/26/2022 COLONOSCOPY Routine 04/01/2020 from Last 3 Months or Most Recently Relevant to Health Maintenance Results * eGFR (08/12/2024 12:00 PM MAIL PROCESSING ASSOCIATE) eGFR 67 >=60 mL/min/1. 73 m2 Comment: [...] reviewed 2021. Blood 08/12/2024 12:0 0 PM MAIL PROCESSING ASSOCIATE 08/12/2024 8:49 PM MAIL PROCESSING ASSOCIATE us Herminio Marie MD LAB BLOOD ORDERABLES Final Result [facility] [address] Department [place] [address] * Differential, auto (08/12/2024 12:00 PM MAIL PROCESSING ASSOCIATE) Neutrophil abs 4.7 1.5 - 6.5 K/cumm Imm gran abs 0.0 0.0 - 0.1 K/cumm [facility] Lymphocyte abs 2.4 0.8 - 3.3 K/cumm [facility] Monocyte abs 0.7 0.2 - 0.8 K/cumm [facility] Eosinophil abs 0.2 0.0 - 0.5 K/cumm [facility] Basophil abs 0.1 0.0 - 0.1 K/cumm [facility] Neutrophil pct 57.6 % [facility] Comment: Interpretive Data Percent cell count reference ranges are not reported, since discordance with absolute values may lead to misinterpretation of CBC data. Current Interpretive Data was last revised on 2017. Imm gran pct 0.2 % [facility] Comment: Interpretive Data Percent cell count reference ranges are not reported, since discordance with absolute values may lead to misinterpretation of CBC data. Current Interpretive Data was last revised on 2017. Lymphocyte pct 30.0 % [facility] Comment: Interpretive Data Percent cell count reference ranges are not reported, since discordance with absolute values may lead to misinterpretation of CBC data. Current Interpretive Data was last revised on 2017. Monocyte pct 8.6 % [facility] Comment: Interpretive Data Percent cell count reference ranges are not reported, since discordance with absolute values may lead to misinterpretation of CBC data. Current Interpretive Data was last revised on 2017. Eosinophil pct 2.7 % [facility] Comment: Interpretive Data Percent cell count reference ranges are not reported, since discordance with absolute values may lead to misinterpretation of CBC data. Current Interpretive Data was last revised on 2017. Basophil pct 0.9 % [facility] Comment: Interpretive Data Percent cell count reference ranges are not reported, since discordance with absolute values may lead to misinterpretation of CBC data. Current Interpretive Data was last revised on 2017. Blood 08/12/2024 12:0 0 PM MAIL PROCESSING ASSOCIATE 08/12/2024 8:33 PM MAIL PROCESSING ASSOCIATE Herminio Marie MD LAB BLOOD ORDERABLES Final Result [facility] [address] Department [place] [address] * (ABNORMAL) CBC with auto differential (08/12/2024 12:00 PM MAIL PROCESSING ASSOCIATE) WBC 8.1 3.8 - 9.9 K/cumm Hgb 14.4 11.9 - 15.5 g/dL JIE Hct 46.5(H) 35.6 - 45.5 % JIE Plt 288 150 - 400 K/cumm [facility] MPV 10.2 9.1 - 12.3 fL [facility] RBC 4.85 3.90 - 5.20 M/cumm [facility] MCV 95.9 81.3 - 96.4 fL [facility] MCH 29.7 27.1 - 33.3 pg [facility] MCHC 31.0(L) 32.3 - 35.7 g/dL [facility] RDW CV 13.9 11.1 - 14.9 % [facility] RDW SD 49.2(H) 35.7 - 48.1 fL [facility] NRBC abs 0.00 0.00 - 0.01 K/cumm [facility] Blood 08/12/2024 12:0 0 PM MAIL PROCESSING ASSOCIATE 08/12/2024 8:33 PM MAIL PROCESSING ASSOCIATE Herminio Marie MD LAB BLOOD ORDERABLES Final Result Performing Organization Address [facility] de Phone Number [facility] [address] [place] [address] * Hepatitis B surface antibody (immune status) Blood (08/12/2024 12:00 PM MAIL PROCESSING ASSOCIATE) HBsAb (immune status) Nonreactive Comment: Interpretive Data [...] on 19. Blood 08/12/2024 12:0 0 PM MAIL PROCESSING ASSOCIATE 08/12/2024 8:33 PM MAIL PROCESSING ASSOCIATE Herminio Marie MD LAB MICROBIOLOGY - GENERAL ORDERABLES Final Result Performing Organization Address [facility] Co de Phone Number [facility] [address] [facility] [place], [place] [id number] * (ABNORMAL) Hemoglobin A1c (08/12/2024 12:00 PM MAIL PROCESSING ASSOCIATE) Hgb A1C 6.3(H) 4.0 - 5.6 % Estimated Average Glucose 134 mg/dL [facility] Comment: The ADA recommends reporting an estimated Average Glucose (eAG) with all Hemoglobin A1c results using the equation derived from a study of 507 normal and diabetic adults. Minority populations were underrepresented and children were not included. (Diabetes Care 31:2602-7764, 2008). The eAG is not equivalent to a fasting glucose. Blood 08/12/2024 12:0 0 PM MAIL PROCESSING ASSOCIATE 08/12/2024 8:33 PM MAIL PROCESSING ASSOCIATE us Herminio Marie MD LAB BLOOD ORDERABLES Final Result [facility] [address] Department [place] [address] * Lipid panel (08/12/2024 12:00 PM MAIL PROCESSING ASSOCIATE) Cholesterol 154 30 - 199 mg/dL Comment: [...] revised on 2018. HDL 50 >=40 mg/dL [facility] Comment: Interpretive Data Ages < or [...] last revised on 2018. Chol/HDL ratio 3 [facility] Blood 08/12/2024 12:0 0 PM MAIL PROCESSING ASSOCIATE 08/12/2024 8:33 PM MAIL PROCESSING ASSOCIATE us Herminio Marie MD LAB BLOOD ORDERABLES Final Result [facility] [address] [place] [address] * Comprehensive metabolic panel (08/12/2024 12:00 PM MAIL PROCESSING ASSOCIATE) Sodium 143 135 - 145 mmol/L Potassium, [...] classification and Diagnosis of Diabetes Diabetes Care 202; 46: S19-S40. Current interpretive data was last [...] CH AST 35 10 - 45 Units/L [facility] Blood 08/12/2024 12:0 0 PM MAIL PROCESSING ASSOCIATE 08/12/2024 8:33 PM MAIL PROCESSING ASSOCIATE Herminio Marie MD LAB BLOOD ORDERABLES Final Result Performing Organization Address [facility] de Phone Number [facility] [address] [place] [address] * Albumin Creatinine Ratio, Urine (01/29/2024 8:07 AM CDT) Albumin Ur <12.0 mg/L Comment: Interpretive Data No reference range established. Current interpretive data was last revised 2018. Creatinine Ur 118.2 mg/dL [facility] Comment: Interpretive Data No reference range established. Current interpretive data was last revised 2018. Albumin Creatinine Ratio, Ur <10 1 - 29 mg/g [facility] Urine 01/29/2024 8:07 AM CDT 01/29/2024 2:53 PM CDT Gifty Willard MD LAB URINE ORDERABLES F inal Result Performing Organization Address [facility] de Phone Number [facility] [address] Department [place] [address] * HM MAMMOGRAPHY (05/30/2023 9:00 AM CDT) Historical Provider HEALTH MAINTENANCE Final Result * HM DIABETES EYE EXAM (09/20/2022 3:25 PM MAIL PROCESSING ASSOCIATE) Historical Fede SAMANIEGO HEALTH MAINTENANCE Final Result * Hepatitis C antibody (04/30/2022 9:50 AM CDT) Hep C Ab Nonreactive Nonreactive [facility] Comment: Interpretive Data Nonreactive: Antibodies to HCV [...] - [place] [address] [address] Department [place] [address] * DEXA SCAN (02/26/2022) Scribed Deca Scan Normal Comment:care everywhere Historical Provider HEALTH MAINTENANCE Final Result * COLONOSCOPY (04/01/2020) Scribed Colonoscopy Abnormal Comment:2 small polyps. repe at in 5 yrs 04/01/2020 Historical Provider HEALTH MAINTENANCE Edited Result - Final from Last 3 Months or Most Recently Relevant to Health Maintenance Insurance [facility] Member Subscriber Plan / Payer (Ef fective 2017-Present) Name:Lucia Bruner Relation to Subscriber:Self Name:Lucia Bruner Payer ID:[id number] (NAIC) Type:MEDICARE RISK OTHER Address: [address] [employer] [facility] [employer] Advance Directives For more information, please contact: [phone] * Full Code (Latest Code Status on File) Date Activated Date Inactivated Comments 05/24/2022 9:47 AM 05/24/2022 3:42 PM * Full Code Date Activated Date Inactivated Comments 05/24/2022 9:47 AM 05/24/2022 9:47 AM Care Teams Gis Physical Scientist Relationship Specialty Start Date End Date Herminio Marie MD [address] [address] PCP - General Family Medicine 08/12/24 Isela Glasgow, PhD [facility] [address] [address] Referring Physician Obstetrics and Gynecology 01/24/22 Girma Hidalgo MD [address] [address] Referring Physician Orthopedic Surgery 01/27/24 Ana Rosa Will MD [address] [place] [address] Consulting Physician Neurology 01/27/24 Drew Pimentel MD [address] [place] [address] Orthopedic Surgery 01/27/24 Tresa Bello PA [address] [facility] [address] [address] Physician Customer Support Associate Vascular Surgery 01/27/24
--- OUTSIDE RECORDS SUMMARY | 2024-10-07 11:35 | XMS_ITS | Encounter Summary ---
Author Organization [facility] Healthcare Address [address] [place] [address] Care Team Providers Care Gallery Host Name Role Phone Isela Glasgow PhD Unavailable [phone] Girma Hidalgo MD Unavailable [phone] Ana Rosa Will MD Unavailable + [phone] Drew Pimentel MD Unavailable [phone] Tresa Bello Unavailable [phone] Herminio Marie MD Primary Care Provider [phone] Encounter Details Date Type Department Care Team (Late st Contact Info) Description 08/13/2024 Telephone [facility] Primary Care at [address] [address] Herminio Marie MD [address] [place] [address] Social History Tobacco Use Types Packs/Day Years Used Date Smoking Tobacco: Never Smokeless Tobacco: Never [facility] Utilities Answer Date Recorded In the past 12 months has [employer] electric, gas, oil, or water company threatened [...] often do you attend chur ch or synagogue services? Never 06/17/2024 Do you belong to any clubs o r organizations such as mosque groups, unions, fraternal or athletic groups, or [...] any time in the past 12 m [facility], were you homeless or living in a snf (including now)? No 06/17/2024 Comments No Sex and Gender Information Value Date Recorded Sex Assigned at Not on file Legal Sex Female 4:24 PM DINING CAR SERVER Gender Identity Female 02/06/2022 8:58 AM CDT Sexual Orientation Not on file documented as of this encounter Plan of Treatment Not on file documented as of this encounter Visit Diagnoses Not on filedocumented in this encounter Care Teams Gallery Host Relationship Specialty Start Date End Date Herminio Marie MD 212 [facility] 130 [place] [address] PCP - General Family Medicine 08/12/24 Isela Glasgow, PhD 1031 [facility] 400 [place] [address] Referring Physician Obstetrics and Gynecology 01/24/22 Girma Hidalgo MD [address] [address] Referring Physician Orthopedic Surgery 01/27/24 Ana Rosa Will MD 3 [place], [place] [address] Consulting Physician Neurology 01/27/24 Drew Pimentel MD [address] [place], [place] [address] Orthopedic Surgery 01/27/24 Tresa Bello PA 4600 [facility] 120 [place] [address] Physician Afterschool Babysitter Vascular Surgery 01/27/24 documented as of this encounter
[2024-10-07 12:00] VITALS: BP 111/70; PULSE 99; RESP 16; O2SAT 96
[2024-10-07] MEDS: ONDANSETRON INJ 4 MG/2 ML VIAL IV PUSH (12:03)
[2024-10-07] MEDS: SODIUM CHLORIDE 0.9% IV 1,000 ML 999 ML IV CONT (12:03)
[2024-10-07 12:15] LABS: Basophils Percent Auto 0.2 % (0.2-1.2); Eosinophils Percent Auto 0.1 % (0-4.4); Hematocrit 48.8 % (37.0-47.0); Hemoglobin 15.9 g/dL (12.0-15.0); Immature Granulocyte Absolute 0.05 K/mm3 (0.00-0.031); Immature Granulocyte Percent A 0.4 % (0-0.5); Lymphocytes Percent Auto 3.1 % (18.3-44.2); Mean Corpuscular HGB Conc 32.6 g/dl (32-36); Mean Corpuscular Volume 92.1 fl (80-100); Mean Platelet Volume 9.7 fl (7.4-10.4); Monocytes Absolute Auto 0.6 K/mm3 (0.1-0.6); Monocytes Percent Auto 4.5 % (2.6-8.5); Neutrophils Percent Auto 91.7 % (45.5-73.1); Platelet Count Result 248 k/mm3 (150-375); Red Cell Distribution Width 14.3 % (11.5-14.5); White Blood Count 13.1 K/mm3 (4.5-10.0)
[2024-10-07 12:26] LABS: Alanine Aminotransferase 27 U/L (6-35); Albumin Level 4.5 g/dL (3.5-5.1); Alkaline Phosphatase 81 U/L (38-126); Anion Gap 10 mmol/L (4-12); Aspartate Amino Transferase 29 U/L (14-36); Bilirubin,Total 0.9 mg/dL (0.2-1.3); Blood Urea Nitrogen 18 mg/dL (7-17); Calcium 9.3 mg/dL (8.4-10.2); Carbon Dioxide 26 mmol/L (22-30); Chloride 105 mmol/L (98-107); Estimated CRCL calculation 66 ml/min; Estimated Glomerular Filt Rate > 60; Glucose 156 mg/dL (65-110); Lipase 83 U/L (23-300); Potassium 4.7 mmol/L (3.4-5.0); Sodium 141 mmol/L (137-145)
[2024-10-07 12:30] LABS: Lactic Acid Reflex 2.6 mmol/L (0.7-2.0)
--- NOTE | 2024-10-07 12:50 | PC.NURSE ---
Pt. to CT.
--- OUTSIDE RECORDS SUMMARY | 2024-10-07 13:05 | XMS_ITS | CONTINUITY OF CARE DOCUMENT ---
Author Name cristo lemons Address Unknown Organization [facility] Address [id number] [place] [address] [address] [place] [address] Phone [phone] Care Team Providers Care Celery Tier Name Role Phone TYRELL (retired) ARNOLD SAMANIEGO Unavailable [phone] TYRELL (retired) ARNOLD SAMANIEGO Unavailable [phone] INSURANCE PROVIDERS Payer name Policy type / Coverage type [place] [employer] party ID [facility] [id number]
--- OUTSIDE RECORDS SUMMARY | 2024-10-07 13:06 | XMS_ITS | Encounter Summary ---
Author Organization [facility] Healthcare Address [address] [place] [address] Care Team Providers Care Practice Clinician Name Role Phone Isela Glasgow PhD Unavailable [phone] Girma Hidalgo MD Unavailable [phone] Ana Rosa Will MD Unavailable + [phone] Drew Pimentel MD Unavailable [phone] Tresa Bello Unavailable [phone] Herminio Marie MD Primary Care Provider [phone] Encounter Details Date Type Department Care Team (Late st Contact Info) Description 08/13/2024 Telephone [facility] Medical Group Primary Care at [address] [address] Herminio Marie MD [address] [place] [address] Social History Tobacco Use Types Packs/Day Years Used Date Smoking Tobacco: Never Smokeless Tobacco: Never [facility] Utilities Answer Date Recorded In the past 12 months has [employer] electric, gas, oil, or water company threatened [...] often do you attend chur ch or congregational services? Never 06/17/2024 Do you belong to any clubs o r organizations such as holiness groups, unions, fraternal or athletic groups, or [...] any time in the past 12 m [facility], were you homeless or living in a fpc (including now)? No 06/17/2024 Comments No Sex and Gender Information Value Date Recorded Sex Assigned at Not on file Legal Sex Female 4:24 PM AUDIOVISUAL LIBRARIAN Gender Identity Female 02/06/2022 8:58 AM CDT Sexual Orientation Not on file documented as of this encounter Plan of Treatment Not on file documented as of this encounter Visit Diagnoses Not on filedocumented in this encounter Care Teams Practice Clinician Relationship Specialty Start Date End Date Herminio Marie MD 212 [facility] 130 [place] [address] PCP - General Family Medicine 08/12/24 Isela Glasgow, PhD 1031 [facility] 400 [place] [address] Referring Physician Obstetrics and Gynecology 01/24/22 Girma Hidalgo MD [address] [address] Referring Physician Orthopedic Surgery 01/27/24 Ana Rosa Will MD 3 [place], [place] [address] Consulting Physician Neurology 01/27/24 Drew Pimentel MD [address] [place], [place] [address] Orthopedic Surgery 01/27/24 Tresa Bello PA 4600 [facility] 120 [place] [address] Physician Vp Software Support Vascular Surgery 01/27/24 documented as of this encounter
--- OUTSIDE RECORDS SUMMARY | 2024-10-07 13:06 | XMS_ITS | Encounter Summary ---
Author Organization [facility] Address [address] [place] [address] Care Team Providers Care Senior Controls Analyst Name Role Phone Gifty Willard MD Primary Care Provider Girma Hidalgo MD Unavailable [phone] Rogers Humphries MD, Crystal Unavailable [phone] Encounter Details Date Type Department Care Team (Late st Contact Info) Description 03/06/2022 MyChart Message Enc [facility] - [place] [address] [place], [place] [id number] [phone] Girma Hidalgo MD [address] [address] [place] [address] Labs Social History Tobacco Use [...] documented as of this encounter Care Teams Senior Controls Analyst Relationship Specialty Start Date End Date Gifty Willard MD [address] [place] [id number] PCP - General SPORTS MEDICINE 02/13/22 Girma Hidalgo MD [address]70 [facility] [address] [place], [place] [address] Consulting Physician ORTHOPAEDIC SURGERY 02/27/22 Yeni Mccloud MD 1 [place] [address] [id number] (Work) Consulting Physician HOSPITALIST 03/12/22 documented as of this encounter
--- OUTSIDE RECORDS SUMMARY | 2024-10-07 13:06 | XMS_ITS | Encounter Summary ---
Author Organization [facility] Address [address] [facility] [place] [address] Care Team Providers Care Programmer Analyst Name Role Phone Usha Wood MD Primary Care Provider [phone] Patrizia Mcghee MD Unavailable [phone] Tres Calzada MD Primary Care Provider [phone] Gifty Willard MD Primary Care Provider [phone] Pcp, [facility] Depaul - Primary Care Provider Un available Gifty Willard Primary Care Provider Unavailabl e Gfity Willard Unavailable Unavailable Encounter Details Date Type Department Care Team (Late st Contact Info) Description 02/17/2014 Therapy Visit [facility] Unknown, Provider Social History Tobacco Use [...] CDT Office Visit [facility] - MULTIPLE SCLEROSIS NURSE [address] [facility] [address] [place] [phone] Isela Glasgow, JOCKEY VALET-FREIGHT BRAKE OPERATOR [address] [address] documented as of this encounter Visit Diagnoses Not on filedocumented in this encounter Care Teams Programmer Analyst Relationship Specialty Start Date End Date Usha Wood MD PCP - General Internal Medicine 12/08/13 07/03/18 Tres Calzada MD [address] [place] [address] PCP - General Internal Medicine 07/04/18 07/05/22 Gifty Willard MD [address] [address] PCP - General 07/06/22 02/28/23 Jovan Fontana - PCP - General 03/01/23 10/13/23 Gifty Willard PCP - General Family Medicine 01/23/24 Patrizia Mcghee MD Orthopedic Surgery 12/08/13 07/03/18 Gifty Willard Primary Care Provider Family Medicine 01/23/24 documented as of this encounter
--- OUTSIDE RECORDS SUMMARY | 2024-10-07 13:06 | XMS_ITS | Patient Health Summary ---
Author Organization [facility] Address [address] [place] [address] Care Team Providers Care Photography Instructor Name Role Phone Gifty Willard Primary Care Provider Gifty Bentley Unavailable Unavailable Note from [facility],non-owned Affiliates and Associated Physician Practices is amultiple site organization consisting of ambulatory clinics and hospital sitesin [place], [place], [place] and [place]. This disclosure is being madepursuant to the Care Everywhere program and may not contain all information available regarding this patient. Last updated 18.[facility] Allergies * Penicillins(Unknown) * Penicillin G(Rash) -Medium [...] by mouth once daily * nystatin (Mycostatin) [id number] UNIT/GM ointment(Started 04/16/2024) Use with the Triamcinolone [...] AM CDT Pulse 79 07/04/2018 12:32 PM [employer] Temperature 36.9 C (98.5 F) 11/11/2018 11:00 AM CDT Respiratory Rate 18 07/04/2018 12:32 PM [employer] Oxygen Saturation 98% 07/04/2018 12:32 PM [employer] Inhaled Oxygen Concentration - - Weight 78.9 [...] for Primary osteoarthritis of right hip * [place] DRAIN INJ MAJOR JOINT BURSA W US(Performed 02/12/2019) Performed for Arthritis of right hip * [place] US GUIDED NEEDLE PLACEMENT(Performed 02/10/2019) Performed for Arthritis of right hip * [place] DRAIN INJ MAJOR JOINT BURSA W US(Performed 11/13/2018) Performed for Arthritis of right hip * [place] DRAIN INJ MAJOR JOINT BURSA W US(Performed 08/07/2018) Performed for Arthritis of right hip, Right hip pain * [place]Y DRAIN/INJECT LARGE JOINT/BURSA(Performed 07/08/2018) Performed for Primary [...] Elsewhere Classified * PFT-LAB(Performed 12/03/2008) * CYTOLOGY NON-TRAIN DIRECTOR PANEL(Performed 10/30/2007) * CYTOLOGY NON-TRAIN DIRECTOR PANEL(Performed 10/30/2007) Results * LAB RESULTS ORDER [...] [facility] Comment: CULTURE, YEAST, W/IDENTIFICATION Micro Number: [id number] Test Status: Final Specimen Source: [facility]UL[facility] Specimen Quality: Adequate Result: No yeast isolated Test Performed at: [facility] [id number] CANDELARIA ZAVALA MD Microbiology ENTIRE VULVA / Unknown 11/23/2020 9:06 AM CDT 11/24/2020 1:21 AM CDT Isela Sethi Pee MOVEMENT EDUCATION SPECIALIST-HUMAN SERVICES PROGRAM SPECIALIST LAB - MICRO BIOLOGY ORDERABLES [facility] [address] [place] [address] * XR PELVIS W RIGHT HIP 2VW [...] HIP 3 VIEW HISTORY: Osteoarthritis There is rqlr-lu-mjndilqy degenerative change of the bilateral hip joints with medial-sided joint space narrowing. Degenerative change of the bilateral sacroiliac joints and lumbar spine are present. Procedure Note Jhonathan Jama MD - 03/13/2019 RIGHT HIP 3 VIEW HISTORY: Osteoarthritis There is aihh-yk-acdhndjz degenerative change of the bilateral hip joints with medial-sided joint space narrowing. Degenerative change of the bilateral sacroiliac joints and lumbar spine are present. IMPRESSION Degenerative changes. Edited by Martha Pruitt on 03/13/2019 11:05 AM Reading Radiologist: Jhonathan Jama MD on 03/13/2019 at 11:08 AM Prosper Jauregui MD DIAGNOSTIC IMAGING O RDERABLES * WY DRAIN INJ MAJOR JOINT BURSA W US [...] Marcel KELSEY PROCEDURE/MINOR SURG ICAL ORDERABLES * [place] US GUIDED NEEDLE PLACEMENT (02/10/2019 11:41 AM CDT) 02/10/2019 11:4 1 AM CDT Felipe Kari Marcel KELSEY PROCEDURE/MINOR SURG ICAL ORDERABLES [facility]INITT[facility] * [place] DRAIN INJ MAJOR JOINT BURSA W US [...] Marcel KELSEY PROCEDURE/MINOR SURG ICAL ORDERABLES * [place] DRAIN INJ MAJOR JOINT BURSA W US (08/07/2018 4:25 PM [employer]) Narrative Matteo Rod DO - 08/07/2018 4:25 PM [employer] Matteo Rod DO 08/07/2018 4:25 PM U/S-GUIDED [...] Kari Rod PROCEDURE/MINOR SURG ICAL ORDERABLES * [place] DRAIN/INJECT LARGE JOINT/BURSA (07/08/2018 4:09 PM [employer]) Narrative Leana Galvan PA-C - 07/08/2018 4:09 PM [employer] Leana Galvan PA-C 07/08/2018 4:09 PM Orthopaedic [...] ORDERABLES * ED ARTHROCENTESIS (07/05/2018 1:34 AM [employer] AND [employer]) Narrative Patrick Noble MD - 07/05/2018 1:34 AM [employer] Usha Whiteside PA-C 07/04/2018 7:00 PM Arthrocentesis [...] CRYSTAL INDENTIFICATION SYNOVIAL FLUID (07/04/2018 4:59 PM [employer]) Crystal Exam Fluid No crystals seen. To be reviewed by pathologist. 07/04/2018 6:09 PM [employer] [facility] Fluid SYNOVIAL FLUID / Unknown Collection / Unknown 07/04/2018 4:59 PM [employer] 07/04/2018 4:59 PM [employer] Usha Talamantes MD LAB - BODY FLUID ORD ERABLES [address] [phone] * PATHOLOGY SMEAR BODY FLUID (07/04/2018 4:59 PM [employer]) Pathology Diff Review DIFFERENTIAL REVIEW - CONFIRMED DIFFERENTIAL REVIEW - CONFIRMED 07/07/2018 3:02 PM [employer] [facility] Comment: The patient is a 68 year [...] Unknown Collection / Unknown 07/04/2018 4:59 PM [employer] 07/04/2018 4:59 PM [employer] Usha Talamantes MD LAB - PATHOLOGY/CYTO LOGY ORDERABLES Performing Organization Address [facility]/ZIP Co de Phone Number [address] [phone] * DIFFERENTIAL MANUAL FLUID (07/04/2018 4:59 PM [employer] AND [employer]) Pathologist [facility] Segs % Fluid 92 % 07/04/2018 6:18 PM [employer] [facility] Lymphocytes % Fluid 4 % 07/04/2018 6:18 PM [employer] [facility] Monocytes % Fluid 3 % 07/04/2018 6:18 PM [employer] [facility] Eosinophils % Fluid 1 % 07/04/2018 6:18 PM [facility] Fluid SYNOVIAL FLUID / Unknown Collection / Unknown 07/04/2018 4:59 PM [employer] 07/04/2018 4:59 PM [employer] Narrative [facility] - 07/04/2018 6:18 PM [employer] Very rare extracellular bacteria seen. Usha Talamantes MD LAB - BODY FLUID ORD ERABLES Performing Organization Address [facility]/ZIP Co de Phone Number [address] [phone] * (ABNORMAL) CELL COUNT W DIFF W CRYSTALS SYNOVIAL (07/04/2018 4:59 PM [employer]) Color Fluid Red(A) Colorles s, Straw 07/04/2018 5:14 PM [employer] [facility] Clarity Fluid Bloody(A) Clear 07/04/2018 5:14 PM [employer] [facility] Volume Fluid 1.0 mL 07/04/2018 5:14 PM [...] Unknown Collection / Unknown 07/04/2018 4:59 PM [employer] 07/04/2018 4:59 PM [employer] Usha Talamantes MD LAB - BODY FLUID ORD ERABLES [facility] [address] [place] [address] * CT FEMUR RIGHT WO CONTRAST (07/04/2018 4:51 PM [employer]) Anatomical Region Laterality Modality Lower Extremity Computed Tomogra phy 07/04/2018 5:13 PM [employer] Impressions 07/05/2018 11:51 AM [employer] IMPRESSION: Moderate volume hemarthrosis with tiny air bubbles which could be related to recent right knee joint aspiration. Moderate right hip and mild right knee osteoarthritis. Dictated by Alexsandra Clemons MD (radiology physician). I, Dr. MIRTA CASTILLO have personally reviewed and interpreted this examination/study. This report was electronically signed by MIRTA CASTILLO on 07/05/2018 11:51 AM . Narrative 07/05/2018 11:51 AM [employer] EXAMINATION: Computed tomography (CT) of the right [...] knee osteoarthritis. Dictated by Alexsandra Clemons MD (radiology physician). I, Dr. MIRTA CASTILLO have personally reviewed and interpreted this examination/study. This report was electronically signed by MIRTA CASTILLO on 07/05/201811:51 AM . Usha Whiteside PA-C CT ORDERABL ES * PT-INR [facility] (07/04/2018 4:11 PM [employer] AND GENER[employer]) PT 12.7 12.1 - 14.8 Seconds 07/04/2018 4:49 PM [employer] [facility] INR 1.0 See Comment 07/04/2018 4:49 PM [employer] AND [employer]ATOR [employer] [facility] Comment: The suggested therapeutic range for standard coumadin (warfarin) therapy is an INR of 2.0-3.0. For high-risk patients (Mechanical Mitral Valve Prosthesis, etc.), the suggested prophylactic therapeutic range is an INR of 2.5-3.5. Blood BLOOD SPECIMEN / Unknown Venipuncture / Unknown 07/04/2018 4:11 PM [employer] 07/04/2018 4:17 PM [employer] Usha CARCAMO-C LAB - COAGU LATION ORDERABLES Performing Organization Address [facility]/ZIP Co de Phone Number [address] [phone] * (ABNORMAL) C-REACTIVE PROTEIN (07/04/2018 4:11 PM [employer]) C-Reactive Protein 1.1(H) <=0.5 mg/dL 07/04/2018 4:34 PM [employer] AND [employer] [facility] Blood BLOOD SPECIMEN / Unknown Venipuncture / Unknown 07/04/2018 4:11 PM [employer] 07/04/2018 4:16 PM [employer] Usha CARCAMO-C LAB - CHEMI STRY ORDERABLES Performing Organization Address [facility] [place] [address], [facility] [phone] * (ABNORMAL) ERYTHROCYTE SEDIMENTATION RATE (07/04/2018 4:11 PM [employer]) Erythrocyte Sedimentation Rate Westergren 41(H) 0 - 30 MM/HR 07/04/2018 4:27 PM [employer] [facility] Blood BLOOD SPECIMEN / Unknown Venipuncture / Unknown 07/04/2018 4:11 PM [employer] 07/04/2018 4:17 PM [employer] AND [employer] Usha CARCAMO-C LAB - HEMAT OLOGY ORDERABLES Performing Organization Address [facility] [place] [address], [facility] [phone] * (ABNORMAL) CBC W AUTO DIFFERENTIAL (07/04/2018 4:11 PM [facility]) Only the most recent of3 resultswithin the [...] Unknown Venipuncture / Unknown 07/04/2018 4:11 PM [employer] 07/04/2018 4:17 PM [facility] Usha Whiteside PA-C LAB - HEMAT OLOGY ORDERABLES [address] [phone] * BASIC METABOLIC PANEL (CALCIUM TOTAL) (07/04/2018 4:11 PM [employer]) Only the most recent of3 resultswithin the [...] Unknown Venipuncture / Unknown 07/04/2018 4:11 PM [employer] 07/04/2018 4:16 PM [employer] Usha Whiteside PA-C LAB - CHEMI STRY ORDERABLES Performing Organization Address City/[facility]/ZIP Co de Phone Number [address] [phone] * GRAM STAIN (LAB ORDERED) (07/04/2018 4:10 PM [employer]) Gram Stain No organisms seen 07/04/2018 7:14 PM [facility] Gram Stain Heavy Red blood cells 07/04/2018 7:14 PM [facility] Fluid SYNOVIAL FLUID / Unknown Collection / Unknown 07/04/2018 4:10 PM [employer] 07/04/2018 4:18 PM [employer] Usha Whiteside PA-C LAB - MICRO BIOLOGY ORDERABLES [address] [phone] * CULTURE FLUID+GRAM STAIN (07/04/2018 4:10 PM [employer]) Culture No growth NAHID 07/11/2018 6:33 AM [employer] [facility] Gram Stain Light Polymorphonuclear cells 07/11/2018 6:33 AM [employer] [facility] Gram Stain Heavy Red blood cells 07/11/2018 6:33 AM [employer] [facility] Gram Stain No organisms seen 018 6:33 AM [employer] [facility] Fluid SYNOVIAL FLUID / Unknown Collection / Unknown 07/04/2018 4:10 PM [employer] 07/04/2018 4:18 PM [employer] Usha Whiteside PA-C LAB - MICRO BIOLOGY ORDERABLES [facility] [address] [place], [place] [address], [facility] [phone] * XR KNEE RIGHT 4VW OR MORE (07/04/2018 1:46 PM [employer]) Anatomical Region Laterality Modality Lower Extremity Radiographic Do ging 07/04/2018 1:48 PM [employer] Impressions 07/04/2018 1:59 PM [employer] IMPRESSION: No acute osseous abnormality. Minimal degenerative bony change. Large joint effusion. Dictated by Erica Alejandro MD (radiology physician). Dr. JAYE Ambrose M.D. have personally reviewed and interpreted this examination/study. This report was electronically signed by JAYE AYERS M.D. on 07/04/2018 1:59 PM . Narrative 07/04/2018 1:59 PM [employer] EXAMINATION: XR KNEE RIGHT 4VW OR MORE [...] joint effusion. Dictated by Erica Alejandro MD (radiology physician). Dr. JAYE Ambrose M.D. have personally reviewed and interpreted this examination/study. This report was electronically signed by JAYE AYERS M.D. on07/04/2018 1:59 PM . 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 GROSS DESCRIPTION: Received is one formalin filled container labeled with the patients name and designated right upper arm. The specimen consists of a shave biopsy measuring [id number]. Jar 0. MICROSCOPIC DESCRIPTION: Sections show hyperkeratosis, papillomatosis, hypergranulosis , and acanthosis. Overlying this lesion, the skin is dome-shaped and the epidermis displays psoriasiform hyperplasia with compact hyperkeratosis. The underlying papillary dermis displays fibrosis with a superficial perivascular lymphohistiocyt ic infiltrate. Electronically signed out by Noelle Tobar M.D. 12/26/2016 3:48:58PM [facility] Comment: Performed at: Dermatopathology Laboratory [facility] Department of Dermatology [address] [place] [address] 5th [place] [address] Phone number: [phone] FAX: [phone] 12/24/2016 12/25/2016 Historical Provider MD LAB - PATHOLOGY/C YTOLOGY ORDERABLES [facility] [address] [place] [address]. [facility] Floor Lab [address] [phone] * EKG 12-LEAD (02/11/2014 5:13 AM CDT) Ventricular Rate 80 BPM [facility] Atrial Rate 80 BPM [facility] P-R Interval 168 ms [facility] QRS Duration ms 82 ms [facility] Q-T Interval ms 392 ms [facility] QTC Calculation (Bezet) 452 ms [facility] Calculated P Lyle 49 degrees [facility] Calculated R Lyle -38 degrees [facility] Calculated T Lyle 13 degrees [facility] Interpretation EKG Normal [...] RESPIRATORY PROFILE R8 ([place],IA) (10/01/2011 11:51 AM [employer] AND GENERATOR [employer]TER) Class Description Blood [facility] INSURANCE BILL Comment: [...] 0 kU/L [facility] INSURANCE BILL Allergen Cockroach Venezuelan <0.08 Class 0 kU/L [facility] INSURANCE BILL [...] Class 0 kU/L [facility] INSURANCE BILL Allergen [place] <0.08 Class 0 kU/L [facility] INSURANCE BILL Allergen Elm <0.08 Class 0 kU/L [facility] INSURANCE BILL Allergen Maple <0.08 Class 0 kU/L [facility] INSURANCE BILL Allergen White [place] <0.08 Class 0 kU/L [facility] INSURANCE BILL Allergen Venezuelan Center <0.08 Class 0 kU/L [facility] INSURANCE BILL Allergen White [place] <0.08 Class 0 kU/L [facility] INSURANCE BILL Allergen Mountain Saline <0.08 Class 0 kU/L [facility] INSURANCE BILL Allergen Short/Common Ragweed <0.08 Class 0 kU/L [facility] INSURANCE BILL Allergen Turkish Plantain <0.08 Class 0 kU/L [facility] INSURANCE BILL Allergen Chilean Thistle <0.08 Class 0 kU/L [facility] INSURANCE BILL Allergen Rough Pigweed <0.08 Class 0 kU/L [facility] INSURANCE BILL Allergen Sheep Fitzgerald <0.08 Class 0 kU/L [facility] INSURANCE BILL Allergen Neetle <0.08 Class 0 kU/L [facility] INSURANCE BILL BLOOD SPECIMEN / Unknown 10/01/2011 11:51 AM [employer] AND GENER[employer] 10/01/2011 4:08 PM [employer] Narrative [facility] INSURANCE BILL - 10/04/2011 7:12 AM [employer] AND GENERATOR [employer] Test(s) [id number] [place], White; [id number]- O301-JsG [place]; [id number] Pigweed, Rough; [id number]- Q229-HdB Sheep Fitzgerald(Dock); [id number] Nettle were developed and had performance characteristics determined by [facility]. These tests have not been cleared or approved by the U.S. Food and Drug Administration. The FDA has determined that such clearance or approval is not necessary. These tests are used for clinical purposes. These should not be regarded as investigational or for research. Resulting Agency Comment [facility] [phone] Tre Molina MD LAB - CHEMISTRY SADAF HELM Performing Organization Address City/State/[facility] Co de Phone Number [facility] INSURANCE BILL * (ABNORMAL) IGE BLOOD (10/01/2011 11:51 AM [employer] AND GENERATOR [employer]TER) IgE 145(H) 0 - 100 IU/mL [facility] INSURANCE BILL Blood specimen (specimen) BLOOD SPECIMEN / Unknown 10/01/2011 11:51 AM [employer] AND [employer] 10/01/2011 4:08 PM [employer] AND [employer] Narrative [facility] INSURANCE BILL - 10/04/2011 7:12 AM [employer] AND GENERATOR [employer]TER Test(s) [id number] [place], White; 524715- L666-WxQ [place]; 004256-T146-FkR Pigweed, Rough; 997054- U277-YaE Sheep Fitzgerald(Dock); [id number]-[id number]-BpJ Nettle were developed and had performance characteristics determined by [facility]. These tests have not been cleared or approved by the U.S. Food and Drug Administration. The FDA has determined that such clearance or approval is not necessary. These tests are used for clinical purposes. These should not be regarded as investigational or for research. Resulting Agency Comment [address] [phone] Tre Molina MD LAB - CHEMISTRY SADAF HELM Performing Organization Address [facility] Co de Phone Number [facility] INSURANCE BILL * CT CHEST NON CONTRAST (10/01/2011 8:54 AM [employer] AND GENERATOR BR[employer] C[employer]) Anatomical Region Laterality Modality Chest Computed Tomogra phy 10/01/2011 10:2 2 AM [employer] AND [employer] Impressions 10/01/2011 11:29 AM [employer] AND [employer] No consolidation. Narrative 10/01/2011 11:29 AM MOTOR AND GENERATOR BR[employer] CT THORAX NONCONTRAST CLINICAL INDICATION: Shortness of [...] Molina MD - 09/27/2011 9:19 AM CST [facility] Pulmonary Function Test [facility] PULMONARY FUNCTION TEST REPORT PATIENT: LUCIA BRUNER BMR#: [id number] ADMIT DATE: 09/25/2011CCT#: [id number] DATE OF PROCEDURE: 09/25/2011DOB: 1950 PHYSICIAN: Tre Molina MD SPIROMETRY: Flow volume loop and volume timed curves were examined. [employer] [place] [employer] criteria for acceptability andreproducibility. The [...] and diffusion capacity. Tre Molina MD SK/MedQ #:[id number] Tre Molina MD RESPIRATORY THERAPY ORDERABLES [facility] * CARDIAC EKG ORDER [...] CULTURE URINE (05/06/2011 9:00 PM CDT) Result [facility] Comment: Final CULTURE <10,000 CFU/mL urogenital/skin spencer URINE SPECIMEN OBTAINED BY CLEAN CATCH PROCEDURE / Unknown 05/06/2011 9:00 PM CDT 05/06/2011 9:00 PM CDT Narrative Resulting Agency Comment Performed By [facility];[address];[place] [address] [facility] Generic Ed Physician LAB - MICROBIO LOGY ORDERABLES Performing Organization Address [facility] Co de Phone Number [facility] [address] [place] [address] * (ABNORMAL) URINALYSIS ROUTINE W/REFLEX TO CULTURE (05/06/2011 8:38 PM CDT) Only the most recent of3 resultswithin the time period is included. Color UA YELLOW [facility] Character UA CLEAR [facility] Specific [place] UA 1.005 1.005 - 1.0300 [facility] pH UA 7.5 4.6 - 8.0 pH Units [facility] Leukocyte UA SMALL Negative /ul [facility] Nitrite UA NEGATIVE Negative [facility] Protein UA NEGATIVE Negative mg/dl [facility] Glucose UA NEGATIVE Normal mg/dl [facility] Ketone UA NEGATIVE Negative mg/dl [facility] Urobilinogen UA 0.2 Normal Pamela Units [facility] Bilirubin UA NEGATIVE Negative mg/dl [facility] Blood UA NEGATIVE Negative /ul [facility] WBC UA 5-10(H) <5 /HPF [facility] RBC UA 0-2 <5 /HPF [facility] Epithelial Cell UA 5-10(H) <5 /HPF [facility] Casts UA 0-2 <2 /LPF [facility] Bacteria UA FEW [facility] Urine Culture Reflex to culture, /a 4047 [facility] URINE SPECIMEN OBTAINED BY CLEAN CATCH PROCEDURE / Unknown 05/06/2011 8:38 PM CDT 05/06/2011 8:38 PM CDT Dhaval Cole MD LAB - URINALYSIS ORDERABLES Performing Organization Address [facility] Co de Phone Number [facility] [address] [place] [address] * TROPONIN I (05/06/2011 8:09 PM CDT) [facility] Troponin I < 0.015 SEE BELOW ng/mL [facility] Comment: Normal <0.10 Finch Zone 0.10-0.99 Positive >=1.00 SERUM OR PLASMA SPECIMEN / Unknown 05/06/2011 8:09 PM CDT 05/06/2011 8:09 PM CDT Narrative [facility] - 05/06/2011 8:33 PM CDT Perform on all patients [facility]* Dhaval Cole MD LAB - CHEMISTRY O RDERABLES [facility] [address] [place] [address] * (ABNORMAL) COMPREHENSIVE METABOLIC PANEL (05/06/2011 8:09 PM CDT) [facility] BUN 8 7.0 - 21.0 mg/dl [facility] Sodium 142 136 - 145 mmol/L [facility] Potassium 3.7 3.5 - 5.1 mmol/L [facility] Chloride 108(H) 98.0 - 107.0 mmol/L [facility] Glucose 89 74 - 106 mg/dl [facility] Creatinine 0.56 0.5 - 1.3 mg/dl [facility] AST 19 5 - 40 U/L [facility] Alkaline Phosphatase 96 38 - 126 U/L [facility] Calcium 10.1 8.5 - 10.1 mg/dl [facility] Bilirubin Total 0.6 0.2 - 1.0 mg/dl [facility] Albumin 3.7 3.4 - 5.0 gm/dl [facility] Protein Total 7.6 6.4 - 8.2 gm/dl [facility] CO2 25 22.0 - 30.0 mEq/L [facility] ALT 26 12 - 78 U/L [facility] eGFR by MDRD 111 mL/min/1.7 3m2 [facility] Anion Gap 9.0 [facility] BLOOD SPECIMEN / Unknown 05/06/2011 8:09 PM CDT 05/06/2011 8:09 PM CDT Narrative [facility] - 05/06/2011 8:33 PM CDT Perform for patients with UPPER abd* Dhaval Cole MD LAB - CHEMISTRY O RDERABLES Performing Organization Address [facility]/ZIP Co de Phone Number [facility] [address] [place] [address] * LIPASE BLOOD (05/06/2011 8:09 PM CDT) Lipase 132 73 - 393 U/L [facility] BLOOD SPECIMEN / Unknown 05/06/2011 8:09 PM CDT 05/06/2011 8:09 PM CDT Narrative [facility] - 05/06/2011 8:33 PM CDT Perform for patients with UPPER abd* Dhaval Cole MD LAB - CHEMISTRY O RDERABLES Performing Organization Address [facility] Co de Phone Number [facility] [address] [place] [address] * AMYLASE BLOOD (05/06/2011 8:09 PM CDT) Amylase 29 15 - 115 U/L [facility] BLOOD SPECIMEN / Unknown 05/06/2011 8:09 PM CDT 05/06/2011 8:09 PM CDT Narrative [facility] - 05/06/2011 8:33 PM CDT Perform for patients with UPPER abd* Dhaval Cole MD LAB - CHEMISTRY O RDERABLES Performing Organization Address [facility] Co de Phone Number [facility] [address] [place] [address] * IMAGING/RADIOLOGY/XRAY RESULTS ORDER (04/15/2011 3:36 PM [...] Mcghee MD LAB - HEMATOLOGY ORD ERABLES [facility] [address] [place] [address] * IP CONSULT TO HOSPITALIST (04/11/2011 2:26 [...] for this basename: TROPONIN:3 in the last 59861 hours No results found for this basename: TSH:3 in the last 67503 hours Assessment and Plan 1. S/p left [...] for this basename: TROPONIN:3 in the last 35152 hours No results found for this basename: TSH:3 in the last 62771 hours Assessment and Plan 1. S/p left total knee arthroplasty- physical therapy, pain management.Monitor h/h. Dvt proph per orthopedic surgery recommendations. Encourageincentive spirometry. 2. rosacea- continue metrogel 3. Deafness- aware. CC: Patrizia Mcghee MD , Mona Avendano MD Patrizia Mcghee MD INPATIENT CONSULT OR DERABLES * CULTURE MSSA/MRSA (04/02/2011 11:05 AM CDT) Result [facility] Comment: Final NO growth S.aureus/NO growth S.aureus (MRSA) SPECIMEN FROM NASAL FOSSAE / Unknown 04/02/2011 11:05 AM CDT 04/02/2011 11:24 AM CDT Narrative Resulting Agency Comment Performed By [facility];[address];[place] [address] Patrizia Mcghee MD LAB - MICROBIOLOGY O RDERABLES Performing Organization Address City/[facility] Co de Phone Number [facility] [address] [place] [address] * PT PTT PANEL (12/21/2010 8:30 AM CDT) Pathologist [facility] PT 10.6 9.4 - 11.2 seconds [facility] INR 1.0 SEE BELOW [facility] Comment: 0.9-1.1 Normal 2.0-3.0 Conventional 2.5-3.5 Intensive PTT 26.2 24.0 - 32.0 seconds [facility] BLOOD SPECIMEN / Unknown 12/21/2010 8:30 AM CDT 12/21/2010 8:34 AM CDT Hemant Hernández MD LAB - COAGULATION OR DERABLES Performing Organization Address City/[facility] Co de Phone Number [facility] [address] [place] [address] * (ABNORMAL) BLOOD GASES + LYTES PANEL (12/03/2008 10:30 AM CDT) pH Arterial 7.478(H) 7.38 - 7.42 pH Units [facility] pCO2 Arterial 28.8(L) 38 - 42 mm Hg [facility] pO2 Arterial 98.0 75 - 100 mm Hg [facility] Base Excess Arterial -1.2 -2 - 2 mmol/L [facility] O2 Saturation Arterial 98.1 92 - 98.5 % [facility] Hemoglobin Arterial 16.2 12 - 18 gm/dl [facility] O2 Content Arterial 22.2 15 - 23 % [facility] Sodium Arterial 137.8 135 - 145 mmol/L [facility] Potassium Arterial 4.01 3.3 - 5.3 mmol/L [facility] Comment Potassium, arterial blood: [facility] Oxyhemoglobin Arterial 97.4(H) 94 - 97 % [facility] Carboxyhemoglobin Arterial 0.5 0.0 - 1.5 % [facility] Methemoglobin 0.2 0.0 - 3.0 % [facility] Calcium Ionized 1.18 1.10 - 1.33 mmol/L [facility] Glucose ART 103 80 - 120 mg/dl [facility] Hematocrit Arterial 48 36 - 54 % [facility] HHB Arterial 1.9 0.0 - 5.0 % [facility] HCO3 Arterial 20.9(L) 22 - 29 mmol/L [facility] FI O2 Arterial 21.0 [facility] Site LEFT RADIAL [facility] TCO2 Arterial 21.8(L) 23.0 - 27.0 mmol/L [facility] ARTERIAL BLOOD SPECIMEN / Unknown 12/03/2008 10:30 AM CDT Weston Clifton MD LAB - BLOOD GASES OR DERABLES [facility] [address] [place] [address] * COMPLETE PFT (12/03/2008 12:00 AM CDT) 12/03/2008 Narrative Procedure Note Weston Clifton MD - 12/03/2008 12:[facility] 1.Baseline spirometry reveals normal [...] MD Electronically Signed 12/06/2008 08:56:39 CDT SCARLETT/MedQ #:[id number] Weston Clifton MD RESPIRATORY THERAPY ORDERABLES * CYTOLOGY NON-TRAIN DIRECTOR PANEL (10/30/2007 2:47 PM CDT) Only the [...] JW/CS Released By DERRICK RAMÍREZ CPT Code 55691, 46980 MISCELLANEOUS SAMPLES / Unknown 10/30/2007 2:47 PM CDT 10/30/2007 2:47 PM CDT Historical Provider LAB - PATHOLOGY/C YTOLOGY ORDERABLES Care Teams Photography Instructor Relationship Specialty Start Date End Date Gifty Willard PCP - General Family Medicine 01/23/24 Gifty Willard Primary Care Provider Family Medicine 01/23/24
--- OUTSIDE RECORDS SUMMARY | 2024-10-07 13:06 | XMS_ITS | Encounter Summary ---
Author Organization [facility] Address [address] [place] [address] Care Team Providers Care Barn Operator Name Role Phone Gifty Willard MD Primary Care Provider Girma Hidalgo MD Unavailable [phone] Rogers Humphries MD, Crystal Unavailable [phone] Encounter Details Date Type Department Care Team (Late st Contact Info) Description 01/30/[address] [facility] [address] [place], [place] [address] Mychart, [facility] Provider Air Quality Message Social History [...] documented as of this encounter Care Teams Barn Operator Relationship Specialty Start Date End Date Gifty Willard MD [address] [place] [address] PCP - General SPORTS MEDICINE 02/13/22 Girma Hidalgo MD [address] [address] [place] [address] Consulting Physician ORTHOPAEDIC SURGERY 02/27/22 Yeni Mccloud MD [address] [place] [address] [phone] (Work) Consulting Physician HOSPITALIST 03/12/22 documented as of this encounter
--- OUTSIDE RECORDS SUMMARY | 2024-10-07 13:06 | XMS_ITS | Clinical Summary ---
Author Organization [facility] Address [address] [place] [address] Care Team Providers Care Betting Agency Counter Clerk Name Role Phone Gifty Willard MD Primary Care Provider Girma Hidalgo MD Unavailable [phone] Rogers Humphries MD, Crystal Unavailable [phone] Allergies Active Allergy Reactions Criticality Noted Date [...] LIDOCAINE PATCH) 4 % patchIndication s:Myelopathy (CMS/HCC [facility]) Place 1 patch onto the skin daily. [...] on right 01/24/2023 Deaf 12/14/2022 Diabetes mellitus ([facility]) 12/14/2022 Overview (12/14/2022): has lost 67# while on rybelsus GERD (gastroesophageal reflux disease) Overview (12/14/2022): 02/23/22 went to [facility] with pain r/t taking aleve, told [...] episode of recurren t major depressive disorder ([facility]) 04/30/2022 Overview (06/18/2023): Last Assessment & Plan: [...] 05/05, 01/18/2023, Additional history exists PHQ-2 (Physician [place]) 08/05/2024 08/08/2023 PHQ-2 (Physician [place]) 08/08/2024 08/08/2023 Zoster Vaccines Completed 05/29/2019, 05/20/2018 [...] Fraire RN Medical Devices Implanted Type Area Principal Account Clerk Device Identifier Shelf Expiration Date Model / Serial / Lot Liner Depuy Acet Altrx Neut 36x52 - [id number] Implanted:Qty: 1 on 02/16/2021 by Humberto Negrete MD at [facility] [employer] DEPU[employer] [id number] 02/01/2026 [id number] / / [id number] Cup Acetabular Depuy 52mm - [id number] Implanted:Qty: 1 on 02/16/2021 by Humberto Negrete MD at [facility] [employer] [id number] 12/02/2029 [id number] / / [id number] Actis Duofix Hip Prosthesisfemora l Stem Implanted:Qty: 1 on 02/16/2021 by Humberto Negrete MD at [facility] [employer] Right: Femur DEPUY SYNTHES [id number] 08/04/2030 1010-06-08 0 / / [id number] Head Depuy Femoral Delta 36mm +1.5 - [id number] Implanted:Qty: 1 on 02/16/2021 by Humberto Negrete MD at [facility] [employer]onents Right: Femur DEPU[employer] [id number] 11/02/2025 [id number] / / [id number] Tornier Perform Humeral System Humeral Stem Implanted:Qty: 1 on 03/12/2022 by Girma Hidalgo MD at [facility] Shoulder Components Left: Shoulder [employer] [id number] 10/25/2026 [id number] / [id number] / Tornier Perform Humeral System Retentive Reversed Insert Implanted:Qty: 1 on 03/12/2022 by Girma Hidalgo MD at [facility] Shoulder Components Left: Shoulder [employer] [id number] 02/24/2026 [id number] / [id number] / Aequalis Perform+ Reversed Lateralized Baseplate Implanted:Qty: 1 on 03/12/2022 by Girma Hidalgo MD at [facility] Shoulder Components Left: Shoulder [employer] [id number] 01/28/2025 [id number] / [id number] / Central Screw Implanted:Qty: 1 on 03/12/2022 by Girma Hidalgo MD at [facility] Shoulder Components Left: Shoulder [employer] [id number] / / Peripheral Screw Implanted:Qty: 3 on 03/12/2022 by Girma Hidalgo MD at [facility] Shoulder Components Left: Shoulder [employer] [id number] / / Peripheral Screw Implanted:Qty: 1 on 03/12/2022 by Girma Hidalgo MD at [facility] Shoulder Components Left: Shoulder [employer] [id number] / / Tornier Perform Reversed Standard Glenosphere Implanted:Qty: 1 on 03/12/2022 by Girma Hidalgo MD at [facility] Shoulder Components Left: Shoulder [employer] [id number] 12/28/2026 [id number] / [id number] / Procedures Procedure Name Priority Date/Time Associated Diagnosis Comments HEMOGLOBIN, GLYCOSYLATED Routine 05/21/2023 from Last 3 Months or Most Recently Relevant to Health Maintenance Results * HEMOGLOBIN, GLYCOSYLATED (05/21/2023) HGB A1C 6.0 % 05/21/2023 us Default History Genericprovider LABORATORY Final Result from Last 3 Months or Most Recently Relevant to Health Maintenance Insurance [place] [id number] Advance Directives Documents on File Type Date Recorded Patient Pe Teacher Expl anation Advance Directives and Living Will [...] 5:29 PM 02/18/2021 4:20 PM Care Teams Betting Agency Counter Clerk Relationship Specialty Start Date End Date Gifty Willard MD [address] [place] [phone] PCP - General SPORTS MEDICINE 02/13/22 Girma Hidalgo MD [address] [address] [place], [place] [address] Consulting Physician ORTHOPAEDIC SURGERY 02/27/22 Yeni Mccloud MD [address] [place] [address] [phone] (Work) Consulting Physician HOSPITALIST 03/12/22
--- OUTSIDE RECORDS SUMMARY | 2024-10-07 13:06 | XMS_ITS | Referral Summary ---
Author Organization [facility] Address [address] [place] [address] Care Team Providers Care Medical Certification Specialist Name Role Phone Umu Glasgowan Abdoulaye PhD Unavailable iGrma Hidalgo MD Unavailable [phone] Ana Rosa Will MD Unavailable [phone] Drew Pimentel MD Unavailable [phone] Tresa Bello Unavailable [phone] Herminio Marie MD Primary Care Provider Encounters Date Type Department Care Team Description 10/07/2024 Nurse Triage [facility] Primary Care at [address] [address] Herminio Marie MD 10/05/2024 Orders Only [facility] Primary Care at [address] [address] Herminio Marie MD 10/05/2024 Telephone [facility] Primary Care at [address] [address] Herminio Marie MD Medication Problem (Metronidazole gel ) 09/23/2024 Telephone [facility] Medical [facility] Primary Care at [address] [address] Herminio Marie MD Medical Question/Miscellaneous 09/01/2024 Orders Only [facility] Primary Care at [address] [address] Erna Ferro NP 08/31/2024 Telephone [facility] Primary Care at [address] [address] Herminio Marie MD Medication Request 08/28/2024 Telephone [facility] Primary Care at [address] [phone] Herminio Marie MD Paperwork drop off 08/25/2024 Telephone [facility] Primary Care at [address] [address] Herminio Marie MD Medical Question/Miscellaneous 08/13/2024 Telephone [facility] Primary Care at [address] [address] Herminio Marie MD 08/13/2024 Telephone [facility] Primary Care at [address] [address] Jannie Morgan MA 08/12/2024 7:59 PM NET FRONT END DEVELOPER - 08/12/2024 11:59 PM NET FRONT END DEVELOPER Hospital Encounter [address] [address] Type 2 diabetes mellitus with hypercholesterolemia (HCC); Type 2 diabetes mellitus with diabetic polyneuropathy, without long-term current use of insulin (HCC); Hypertension associated with diabetes (HCC); Need for hepatitis B screening test Discharge Disposition: Discharge to home or self care 08/12/2024 3:00 PM NET FRONT END DEVELOPER Lab [facility] Outpatient Lab at [address] [address] Type 2 diabetes mellitus with diabetic polyneuropathy (HCC) (Primary Dx); Hypertension associated with diabetes (HCC) 08/12/2024 2:15 PM NET FRONT END DEVELOPER Office Visit [facility] Primary Care at [address] [address] Herminio Marie MD Establishing care [...] Mild intermittent asthma without complication 08/06/2024 Telephone [facility] Primary Care at [address] [address] Gifty Willard MD Medical Question/Miscellaneous 07/23/2024 Telephone [facility] Primary Care at [address] [phone] Gifty Willard MD Patient assistance [...] daily 100 each 11 Active Microlet Lancet [facility] FOR DIABETES USE TO TEST BLOOD SUGAR [...] 1 tablet (7 mg total) by mouth fire tower keeper before breakfast 30 tablet 1 025 Active clindamycin (CLEOCIN T) 1 % gelIndications:Acne Rosacea Apply topically 2 (two) times a day 30 g 3 025 Active semaglutide (Rybelsus) 7 mg tablet Take 1 tablet (7 mg total) by mouth fire tower keeper before breakfast 09/30 Discontinued( Reorder) gabapentin (NEURONTIN) [...] 03/21/2023 Assessment & Plan (09/23/2023 5:17 PM NET FRONT END DEVELOPER): Patient's shoulder pain is improving. She notes [...] waiting. Assessment & Plan (09/23/2023 5:17 PM NET FRONT END DEVELOPER): Patient was previously evaluated by vascular. Patient [...] 71 Assessment & Plan (09/23/2023 5:16 PM NET FRONT END DEVELOPER): Chronic. Tolerates atorvastatin. Continue. She will be [...] appts Assessment & Plan (09/23/2023 5:16 PM NET FRONT END DEVELOPER): Today's office visit was conducted with assignment clerk. We will continue use of assignment clerk at all visits to aid in communication GERD (gastroesophageal reflux disease) 2 Overview (01/18/2023): continue rx. pt now agreeable to see gi. referral given 02/23/22 went to [facility] with pain r/t taking aleve, told she had an ulcer, recommended to see GI doctor but has not yet Assessment & Plan (01/27/2024 3:18 PM CDT): Chronic. Symptoms have been well-controlled. Denies symptoms. Assessment & Plan (09/23/2023 5:15 PM NET FRONT END DEVELOPER): Chronic. Remains on omeprazole. Denies any significant [...] provided Assessment & Plan (09/23/2023 5:15 PM NET FRONT END DEVELOPER): Chronic. Patient reports mood is currently well controlled on bupropion. We will continue. Assessment & Plan (05/21/2023 8:01 AM CDT): Chronic. Controlled with medication. Continue S/P reverse total shoulder arthroplasty, left Assessment & Plan (09/23/2023 5:15 PM NET FRONT END DEVELOPER): Patient reports her left shoulder is improving. [...] office Assessment & Plan (09/23/2023 5:13 PM NET FRONT END DEVELOPER): Chronic. Well-controlled on labs today. Continue metformin [...] lisinopril Assessment & Plan (09/23/2023 5:13 PM NET FRONT END DEVELOPER): Chronic. Well-controlled. Continue Current prescription medication Assessment & Plan (05/21/2023 8:02 AM CDT): Chronic. Controlled with lisinopril. Continue medication History of sleep apnea 01/24/2022 Overview (10/16/2022): Improved with weight loss Assessment & Plan (09/23/2023 5:14 PM NET FRONT END DEVELOPER): No longer with sleep apnea. Encouraged her [...] specialists Assessment & Plan (09/23/2023 5:14 PM NET FRONT END DEVELOPER): Chronic. Patient reports symptomatically controlled. She will continue her topical medications. She will follow up with her fermenter champagne and annually. Lumbosacral spondylosis without myelopathy 12/04 Cataracts, bilateral 07/22/2013 Degeneration of cervical intervertebral disc 07/2007 Rosacea 11/18/2003 Assessment & Plan (01/27/2024 3:18 PM CDT): Chronic. Controlled. Continue doxycycline Assessment & Plan (09/23/2023 5:14 PM NET FRONT END DEVELOPER): Chronic. Controlled. Continue topical medication and doxycycline. She will continue working with her staff weapons officer Assessment & Plan (05/21/2023 8:03 AM CDT): [...] Tobacco: Never Tobacco Cessation:Counseling Given: Not Answered [facility] [employer] Answer Date Recorded In the past 12 months has [employer], [place], or water [employer] threatened to shut off services in your [...] How often do you attend chur or alevism services? Never 06/17/2024 Do you belong to any clubs o r organizations such as sabianism groups, unions, fraternal or athletic groups, or [...] any time in the past 12 m [facility], were you homeless or living in a correction (including now)? No 06/17/2024 Comments No Sex and Gender Information Value Date Recorded Sex Assigned at Not on file Legal Sex Female 4:24 PM NET FRONT END DEVELOPER Gender Identity Female 02/06/2022 8:58 AM CDT Sexual Orientation Not on file Last Filed Vital Signs Vital Sign Reading Time Taken Comments Blood Pressure 100/60 08/12/2024 2:28 PM NET FRONT END DEVELOPER Pulse 86 08/12/2024 2:28 PM NET FRONT END DEVELOPER Temperature 36.1 C (96.9 F) 08/12/2024 2:28 PM NET FRONT END DEVELOPER Respiratory Rate 18 08/12/2024 2:28 PM NET FRONT END DEVELOPER Oxygen Saturation 98% 08/12/2024 2:28 PM NET FRONT END DEVELOPER Inhaled Oxygen Concentration - - Weight 81.2 kg (179 lb) 08/12/2024 2:28 PM NET FRONT END DEVELOPER Height 165.1 cm (5' 5 ) 08/12/2024 2:28 PM NET FRONT END DEVELOPER Body Mass Index 29.79 08/12/2024 2:28 PM NET FRONT END DEVELOPER Plan of Treatment Not on file Procedures Procedure Name Priority Date/Time Associated Diagnosis Comments EGFR Routine 08/12/2024 12:00 PM NET FRONT END DEVELOPER Hypertension associated with diabetes (HCC) DIFFERENTIAL AUTO Routine 08/12/2024 12:00 PM NET FRONT END DEVELOPER Hypertension associated with diabetes (HCC) CBC WITH AUTO DIFFERENTIAL Routine 08/12/2024 12:00 PM NET FRONT END DEVELOPER Hypertension associated with diabetes (HCC) COMPREHENSIVE METABOLIC PANEL Routine 08/12/2024 12:00 PM NET FRONT END DEVELOPER Hypertension associated with diabetes (HCC) HEMOGLOBIN A1C Routine 08/12/2024 12:00 PM NET FRONT END DEVELOPER Type 2 diabetes mellitus with diabetic polyneuropathy, without long-term current use of insulin (HCC) Hypertension associated with diabetes (HCC) Type 2 diabetes mellitus with hypercholesterolemia (HCC) LIPID PANEL Routine 08/12/2024 12:00 PM NET FRONT END DEVELOPER Type 2 diabetes mellitus with hypercholesterolemia (HCC) HEPATITIS B SURFACE ANTIBODY (IMMUNE STATUS) Routine 08/12/2024 12:00 PM NET FRONT END DEVELOPER Need for hepatitis B screening test ALBUMIN CREATININE RATIO, URINE Routine 01/29/2024 8:07 AM CDT Encounter for Medicare annual wellness exam Type 2 diabetes mellitus with diabetic polyneuropathy, without long-term current use of insulin (HCC) Hypertension, essential MAMMOGRAPHY Routine 05/30/2023 9:00 AM CDT DIABETES EYE EXAM Routine 09/20/2022 3:25 PM NET FRONT END DEVELOPER HEPATITIS C ANTIBODY Routine 04/30/2022 9:50 AM CDT Encounter for hepatitis C screening test for low risk patient DEXA SCAN Routine 02/26/2022 COLONOSCOPY Routine 04/01/2020 from Last 3 Months or Most Recently Relevant to Health Maintenance Results * eGFR (08/12/2024 12:00 PM NET FRONT END DEVELOPER) eGFR 67 >=60 mL/min/1. 73 m2 Comment: [...] reviewed 2021. Blood 08/12/2024 12:0 0 PM NET FRONT END DEVELOPER 08/12/2024 8:49 PM NET FRONT END DEVELOPER us Herminio Marie MD LAB BLOOD ORDERABLES Final Result [facility] [address] Department [place] [address] * Differential, auto (08/12/2024 12:00 PM NET FRONT END DEVELOPER) Neutrophil abs 4.7 1.5 - 6.5 K/cumm Imm gran abs 0.0 0.0 - 0.1 K/cumm [facility] Lymphocyte abs 2.4 0.8 - 3.3 K/cumm [facility] Monocyte abs 0.7 0.2 - 0.8 K/cumm [facility] Eosinophil abs 0.2 0.0 - 0.5 K/cumm [facility] Basophil abs 0.1 0.0 - 0.1 K/cumm [facility] Neutrophil pct 57.6 % [facility] Comment: Interpretive Data Percent cell count reference ranges are not reported, since discordance with absolute values may lead to misinterpretation of CBC data. Current Interpretive Data was last revised on 2017. Imm gran pct 0.2 % [facility] Comment: Interpretive Data Percent cell count reference ranges are not reported, since discordance with absolute values may lead to misinterpretation of CBC data. Current Interpretive Data was last revised on 2017. Lymphocyte pct 30.0 % [facility] Comment: Interpretive Data Percent cell count reference ranges are not reported, since discordance with absolute values may lead to misinterpretation of CBC data. Current Interpretive Data was last revised on 2017. Monocyte pct 8.6 % [facility] Comment: Interpretive Data Percent cell count reference ranges are not reported, since discordance with absolute values may lead to misinterpretation of CBC data. Current Interpretive Data was last revised on 2017. Eosinophil pct 2.7 % [facility] Comment: Interpretive Data Percent cell count reference ranges are not reported, since discordance with absolute values may lead to misinterpretation of CBC data. Current Interpretive Data was last revised on 2017. Basophil pct 0.9 % [facility] Comment: Interpretive Data Percent cell count reference ranges are not reported, since discordance with absolute values may lead to misinterpretation of CBC data. Current Interpretive Data was last revised on 2017. Blood 08/12/2024 12:0 0 PM NET FRONT END DEVELOPER 08/12/2024 8:33 PM NET FRONT END DEVELOPER Herminio Marie MD LAB BLOOD ORDERABLES Final Result [facility] [id number] Department [place] [address] * (ABNORMAL) CBC with auto differential (08/12/2024 12:00 PM NET FRONT END DEVELOPER) WBC 8.1 3.8 - 9.9 K/cumm Hgb 14.4 11.9 - 15.5 g/dL JIE Hct 46.5(H) 35.6 - 45.5 % JIE Plt 288 150 - 400 K/cumm [facility] MPV 10.2 9.1 - 12.3 fL [facility] RBC 4.85 3.90 - 5.20 M/cumm [facility] MCV 95.9 81.3 - 96.4 fL [facility] MCH 29.7 27.1 - 33.3 pg [facility] MCHC 31.0(L) 32.3 - 35.7 g/dL [facility] RDW CV 13.9 11.1 - 14.9 % [facility] RDW SD 49.2(H) 35.7 - 48.1 fL [facility] NRBC abs 0.00 0.00 - 0.01 K/cumm [facility] Blood 08/12/2024 12:0 0 PM NET FRONT END DEVELOPER 08/12/2024 8:33 PM NET FRONT END DEVELOPER Herminio Marie MD LAB BLOOD ORDERABLES Final Result Performing Organization Address [facility] de Phone Number [facility] [address] [place] [address] * Hepatitis B surface antibody (immune status) Blood (08/12/2024 12:00 PM NET FRONT END DEVELOPER) HBsAb (immune status) Nonreactive Comment: Interpretive Data [...] on 19. Blood 08/12/2024 12:0 0 PM NET FRONT END DEVELOPER 08/12/2024 8:33 PM NET FRONT END DEVELOPER Herminio Marie MD LAB MICROBIOLOGY - GENERAL ORDERABLES Final Result Performing Organization Address [facility] Co de Phone Number [facility] [address] [facility] [email or web address] [place], [place] [id number] * (ABNORMAL) Hemoglobin A1c (08/12/2024 12:00 PM NET FRONT END DEVELOPER) Hgb A1C 6.3(H) 4.0 - 5.6 % Estimated Average Glucose 134 mg/dL [facility] Comment: The ADA recommends reporting an estimated Average Glucose (eAG) with all Hemoglobin A1c results using the equation derived from a study of 507 normal and diabetic adults. Minority populations were underrepresented and children were not included. (Diabetes Care 31:3266-5141, 2008). The eAG is not equivalent to a fasting glucose. Blood 08/12/2024 12:0 0 PM NET FRONT END DEVELOPER 08/12/2024 8:33 PM NET FRONT END DEVELOPER us Herminio Marie MD LAB BLOOD ORDERABLES Final Result [facility] [address] Department [place] [address] * Lipid panel (08/12/2024 12:00 PM NET FRONT END DEVELOPER) Cholesterol 154 30 - 199 mg/dL Comment: [...] [facility] Blood 08/12/2024 12:0 0 PM NET FRONT END DEVELOPER 08/12/2024 8:33 PM NET FRONT END DEVELOPER us Herminio Marie MD LAB BLOOD ORDERABLES Final Result JIE [address] Department [place] [address] * Comprehensive metabolic panel (08/12/2024 12:00 PM NET FRONT END DEVELOPER) Sodium 143 135 - 145 mmol/L Potassium, [...] CH AST 35 10 - 45 Units/L [facility] Blood 08/12/2024 12:0 0 PM NET FRONT END DEVELOPER 08/12/2024 8:33 PM NET FRONT END DEVELOPER Herminio Marie MD LAB BLOOD ORDERABLES Final Result Performing Organization Address [facility] de Phone Number [facility] [address] [place] [address] * Albumin Creatinine Ratio, Urine (01/29/2024 8:07 AM CDT) Albumin Ur <12.0 mg/L Comment: Interpretive Data No reference range established. Current interpretive data was last revised 2018. Creatinine Ur 118.2 mg/dL [facility] Comment: Interpretive Data No reference range established. Current interpretive data was last revised 2018. Albumin Creatinine Ratio, Ur <10 1 - 29 mg/g [facility] Urine 01/29/2024 8:07 AM CDT 01/29/2024 2:53 PM CDT Gifty Willard MD LAB URINE ORDERABLES F inal Result Performing Organization Address [facility] de Phone Number JIE [address] Department [place] [address] * HM MAMMOGRAPHY (05/30/2023 9:00 AM CDT) Historical Provider HEALTH MAINTENANCE Final Result * HM DIABETES EYE EXAM (09/20/2022 3:25 PM NET FRONT END DEVELOPER) Historical Fede SAMANIEGO HEALTH MAINTENANCE Final Result * Hepatitis C antibody (04/30/2022 9:50 AM CDT) Hep C Ab Nonreactive Nonreactive [facility] Comment: Interpretive Data Nonreactive: Antibodies to HCV [...] [place] [address] [address] Department [place] [address] * DEXA SCAN (02/26/2022) Scribed Deca Scan Normal Comment:care everywhere Historical Provider HEALTH MAINTENANCE Final Result * COLONOSCOPY (04/01/2020) Scribed Colonoscopy Abnormal Comment:2 small polyps. repe at in 5 yrs 04/01/2020 Historical Provider HEALTH MAINTENANCE Edited Result - Final from Last 3 Months or Most Recently Relevant to Health Maintenance Insurance [facility] Member Subscriber Plan / Payer (Ef fective 2017-Present) Name:Lucia Bruner Relation to Subscriber:Self Name:Lucia Bruner Payer ID:[id number] (NAIC) Type:MEDICARE RISK OTHER Address: [address] [employer] [facility] [employer] Advance Directives For more information, please contact: [phone] * Full Code (Latest Code Status on File) Date Activated Date Inactivated Comments 05/24/2022 9:47 AM 05/24/2022 3:42 PM * Full Code Date Activated Date Inactivated Comments 05/24/2022 9:47 AM 05/24/2022 9:47 AM Care Teams Medical Certification Specialist Relationship Specialty Start Date End Date Herminio Marie MD [address] [address] PCP - General Family Medicine 08/12/24 Isela Glasgow, PhD [facility] [address] [address] Referring Physician Obstetrics and Gynecology 01/24/22 Girma Hidalgo MD [address] [address] Referring Physician Orthopedic Surgery 01/27/24 Ana Rosa Will MD [address] [place] [address] Consulting Physician Neurology 01/27/24 Drew Pimentel MD [address] [place] [address] Orthopedic Surgery 01/27/24 Tresa Bello PA [address] [facility] [address] [address] [employer] Director Vascular Surgery 01/27/24
--- OUTSIDE RECORDS SUMMARY | 2024-10-07 13:06 | XMS_ITS | Clinical Summary ---
Author Organization [facility] Boardganicssaint elizabeth hebronCoolClouds [facility] Address [address] [place] [address] Care Team Providers Care Buttonhole Maker Hand Name Role Phone Isela Glasgow PhD Unavailable Girma Hidalgo MD Unavailable [phone] Ana Rosa Will MD Unavailable [phone] Drew Pimentel MD Unavailable [phone] Tresa Bello Unavailable [phone] Hermniio Marie MD Primary Care Provider [phone] Allergies Active Allergy Reactions Criticality Noted Date [...] 1 tablet (7 mg total) by mouth family preservation officer before breakfast 30 tablet 1 025 Active clindamycin (CLEOCIN T) 1 % gelIndications:Acne Rosacea Apply topically 2 (two) times a day 30 g 3 025 Active semaglutide (Rybelsus) 7 mg tablet Take 1 tablet (7 mg total) by mouth family preservation officer before breakfast 09/30 Discontinued( Reorder) gabapentin (NEURONTIN) [...] 03/21/2023 Assessment & Plan (09/23/2023 5:17 PM [employer] PICCOL[employer]): Patient's shoulder pain is improving. She notes [...] waiting. Assessment & Plan (09/23/2023 5:17 PM [employer]OUN[employer] PICCOL[employer]): Patient was previously evaluated by vascular. Patient [...] 71 Assessment & Plan (09/23/2023 5:16 PM [employer] PICCOLOS): Chronic. Tolerates atorvastatin. Continue. She will be [...] appts Assessment & Plan (09/23/2023 5:16 PM MOUN[employer] PICCOLOS): Today's office visit was conducted with engineer design and construction. We will continue use of engineer design and construction at all visits to aid in communication GERD (gastroesophageal reflux disease) Overview (01/18/2023): continue rx. pt now agreeable to see gi. referral given 02/23/22 went to [facility] with pain r/t taking aleve, told she had an ulcer, recommended to see GI doctor but has not yet Assessment & Plan (01/27/2024 3:18 PM CDT): Chronic. Symptoms have been well-controlled. Denies symptoms. Assessment & Plan (09/23/2023 5:15 PM [employer]IC[employer]): Chronic. Remains on omeprazole. Denies any significant [...] provided Assessment & Plan (09/23/2023 5:15 PM [employer]): Chronic. Patient reports mood is currently well controlled on bupropion. We will continue. Assessment & Plan (05/21/2023 8:01 AM CDT): Chronic. Controlled with medication. Continue S/P reverse total shoulder arthroplasty, left Assessment & Plan (09/23/2023 5:15 PM [employer] PICCOLOS): Patient reports her left shoulder is improving. [...] office Assessment & Plan (09/23/2023 5:13 PM [employer]): Chronic. Well-controlled on labs today. Continue metformin [...] lisinopril Assessment & Plan (09/23/2023 5:13 PM [employer] PIC[employer]): Chronic. Well-controlled. Continue Current prescription medication Assessment & Plan (05/21/2023 8:02 AM CDT): Chronic. Controlled with lisinopril. Continue medication History of sleep apnea 01/24/2022 Overview (10/16/2022): Improved with weight loss Assessment & Plan (09/23/2023 5:14 PM [employer]): No longer with sleep apnea. Encouraged her [...] specialists Assessment & Plan (09/23/2023 5:14 PM [employer]): Chronic. Patient reports symptomatically controlled. She will continue her topical medications. She will follow up with her intervention specialist and annually. Lumbosacral spondylosis without myelopathy 12/04 Cataracts, bilateral 07/22/2013 Degeneration of cervical intervertebral disc 07/2007 Rosacea 11/18/2003 Assessment & Plan (01/27/2024 3:18 PM CDT): Chronic. Controlled. Continue doxycycline Assessment & Plan (09/23/2023 5:14 PM [employer]): Chronic. Controlled. Continue topical medication and doxycycline. She will continue working with her senior research project manager Assessment & Plan (05/21/2023 8:03 AM CDT): [...] Department Care Team Description 10/07/2024 Nurse Triage [facility] at [address] [address] Herminio Marie MD 10/05/2024 Orders Only [facility] at [address] [address] Herminio Marie MD 10/05/2024 Telephone [facility] at [address] [address] Herminio Marie MD Medication Problem (Metronidazole gel ) 09/23/2024 Telephone [facility] at [address] [address] Herminio Marie MD Medical Question/Miscellaneous 09/01/2024 Orders Only [facility] at [address] [address] Erna Ferro NP 08/31/2024 Telephone [facility] at [address] [address] Herminio Marie MD Medication Request 08/28/2024 Telephone [facility] at [address] [address] Herminio Marie MD Paperwork drop off 08/25/2024 Telephone [facility] at [address] [address] Herminio Marie MD Medical Question/Miscellaneous 08/13/2024 Telephone [facility] at [address] [address] [phone] Aceves MD 08/13/2024 Telephone [facility] at [address] [phone] Jannie Morgan MA 08/12/2024 7:59 PM [employer] - 08/12/2024 11:59 PM [employer] Hospital Encounter [address] [address] Type 2 diabetes mellitus with hypercholesterolemia (HCC); Type 2 diabetes mellitus with diabetic polyneuropathy, without long-term current use of insulin (HCC); Hypertension associated with diabetes (HCC); Need for hepatitis B screening test Discharge Disposition: Discharge to home or self care 08/12/2024 3:00 PM [employer] Lab [facility] at [address] [address] Type 2 diabetes mellitus with diabetic polyneuropathy (HCC) (Primary Dx); Hypertension associated with diabetes (HCC) 08/12/2024 2:15 PM [employer] Office Visit [facility] at [address] [address] Herminio Marie MD Establishing care [...] Mild intermittent asthma without complication 08/06/2024 Telephone [facility] at [address] [address] Gifty Willard MD Medical Question/Miscellaneous 07/23/2024 Telephone [facility] at [address] [address] Gifty Willard MD Patient assistance [...] Tobacco: Never Tobacco Cessation:Counseling Given: Not Answered [facility] Utilities Answer Date Recorded In the past 12 months has e [employer], gas, oil, or water [employer] threatened to shut off services in your [...] often do you attend chur ch or evangelical services? Never 06/17/2024 Do you belong to any clubs o r organizations such as restoration groups, unions, fraternal or athletic groups, or [...] in the past 12 m [facility], were you homeless or living in a retirement (including now)? No 06/17/2024 Comments No Sex and Gender Information Value Date Recorded Sex Assigned at Not on file Legal Sex Female 4:24 PM [employer] Gender Identity Female 02/06/2022 8:58 AM CDT [...] Comments Blood Pressure 100/60 08/12/2024 2:28 PM [employer] Pulse 86 08/12/2024 2:28 PM [employer] Temperature 36.1 C (96.9 F) 08/12/2024 2:28 PM [employer] Respiratory Rate 18 08/12/2024 2:28 PM [employer] Oxygen Saturation 98% 08/12/2024 2:28 PM [employer] Inhaled Oxygen Concentration - - Weight 81.2 kg (179 lb) 08/12/2024 2:28 PM [employer] Height 165.1 cm (5' 5 ) 08/12/2024 2:28 PM [employer] Body Mass Index 29.79 08/12/2024 2:28 PM [employer] Plan of Treatment Health Maintenance Due Date [...] Diagnosis Comments EGFR Routine 08/12/2024 12:00 PM [employer] Hypertension associated with diabetes (HCC) DIFFERENTIAL AUTO Routine 08/12/2024 12:00 PM [employer] Hypertension associated with diabetes (HCC) CBC WITH AUTO DIFFERENTIAL Routine 08/12/2024 12:00 PM [employer] Hypertension associated with diabetes (HCC) COMPREHENSIVE METABOLIC PANEL Routine 08/12/2024 12:00 PM [employer] Hypertension associated with diabetes (HCC) HEMOGLOBIN A1C Routine 08/12/2024 12:00 PM [employer] Type 2 diabetes mellitus with diabetic polyneuropathy, without long-term current use of insulin (HCC) Hypertension associated with diabetes (HCC) Type 2 diabetes mellitus with hypercholesterolemia (HCC) LIPID PANEL Routine 08/12/2024 12:00 PM [employer] Type 2 diabetes mellitus with hypercholesterolemia (HCC) HEPATITIS B SURFACE ANTIBODY (IMMUNE STATUS) Routine 08/12/2024 12:00 PM [employer] Need for hepatitis B screening test ALBUMIN CREATININE RATIO, URINE Routine 01/29/2024 8:07 AM CDT Encounter for Medicare annual wellness exam Type 2 diabetes mellitus with diabetic polyneuropathy, without long-term current use of insulin (HCC) Hypertension, essential MAMMOGRAPHY Routine 05/30/2023 9:00 AM CDT DIABETES EYE EXAM Routine 09/20/2022 3:25 PM [employer] HEPATITIS C ANTIBODY Routine 04/30/2022 9:50 AM CDT Encounter for hepatitis C screening test for low risk patient DEXA SCAN Routine 02/26/2022 COLONOSCOPY Routine 04/01/2020 from Last 3 Months or Most Recently Relevant to Health Maintenance Results * eGFR (08/12/2024 12:00 PM [employer]) eGFR 67 >=60 mL/min/1. 73 m2 Comment: [...] reviewed 2021. Blood 08/12/2024 12:0 0 PM [employer] 08/12/2024 8:49 PM [employer] us Herminio Marie MD LAB BLOOD ORDERABLES Final Result [facility] [address] Department of Laboratories [place], [place] [id number] * Differential, auto (08/12/2024 12:00 PM [employer]) Neutrophil abs 4.7 1.5 - 6.5 K/cumm Imm gran abs 0.0 0.0 - 0.1 K/cumm [facility] Lymphocyte abs 2.4 0.8 - 3.3 K/cumm [facility] Monocyte abs 0.7 0.2 - 0.8 K/cumm [facility] Eosinophil abs 0.2 0.0 - 0.5 K/cumm [facility] Basophil abs 0.1 0.0 - 0.1 K/cumm [facility] Neutrophil pct 57.6 % [facility] Comment: Interpretive Data Percent cell count reference ranges are not reported, since discordance with absolute values may lead to misinterpretation of CBC data. Current Interpretive Data was last revised on 2017. Imm gran pct 0.2 % [facility] Comment: Interpretive Data Percent cell count reference ranges are not reported, since discordance with absolute values may lead to misinterpretation of CBC data. Current Interpretive Data was last revised on 2017. Lymphocyte pct 30.0 % [facility] Comment: Interpretive Data Percent cell count reference ranges are not reported, since discordance with absolute values may lead to misinterpretation of CBC data. Current Interpretive Data was last revised on 2017. Monocyte pct 8.6 % [facility] Comment: Interpretive Data Percent cell count reference ranges are not reported, since discordance with absolute values may lead to misinterpretation of CBC data. Current Interpretive Data was last revised on 2017. Eosinophil pct 2.7 % [facility] Comment: Interpretive Data Percent cell count reference ranges are not reported, since discordance with absolute values may lead to misinterpretation of CBC data. Current Interpretive Data was last revised on 2017. Basophil pct 0.9 % [facility] Comment: Interpretive Data Percent cell count reference ranges are not reported, since discordance with absolute values may lead to misinterpretation of CBC data. Current Interpretive Data was last revised on 2017. Blood 08/12/2024 12:0 0 PM [employer] 08/12/2024 8:33 PM [employer] us Herminio Marie MD LAB BLOOD ORDERABLES Final Result [facility] [address] Department [place] [address] * (ABNORMAL) CBC with auto differential (08/12/2024 12:00 PM [employer]) WBC 8.1 3.8 - 9.9 K/cumm Hgb 14.4 11.9 - 15.5 g/dL [facility] Hct 46.5(H) 35.6 - 45.5 % [facility] Plt 288 150 - 400 K/cumm [facility] MPV 10.2 9.1 - 12.3 fL [facility] RBC 4.85 3.90 - 5.20 M/cumm [facility] MCV 95.9 81.3 - 96.4 fL [facility] MCH 29.7 27.1 - 33.3 pg [facility] MCHC 31.0(L) 32.3 - 35.7 g/dL [facility] RDW CV 13.9 11.1 - 14.9 % [facility] RDW SD 49.2(H) 35.7 - 48.1 fL [facility] NRBC abs 0.00 0.00 - 0.01 K/cumm [facility] Blood 08/12/2024 12:0 0 PM [employer] 08/12/2024 8:33 PM [employer] Result [facility] Herminio Marie MD LAB BLOOD ORDERABLES Final Result Performing Organization Address [facility] Phone Number [facility] [address] [facility] [place] [address] * Hepatitis B surface antibody (immune status) Blood (08/12/2024 12:00 PM [employer]) Pathologist [facility] HBsAb (immune status) Nonreactive Comment: Interpretive Data [...] on 19. Blood 08/12/2024 12:0 0 PM [employer] 08/12/2024 8:33 PM [employer] Result [facility] Herminio Marie MD LAB MICROBIOLOGY - GENERAL ORDERABLES Final Result Performing Organization Address [facility] Phone Number [facility] [address] [facility] [place] [address] * (ABNORMAL) Hemoglobin A1c (08/12/2024 12:00 PM [employer]) Hgb A1C 6.3(H) 4.0 - 5.6 % Estimated Average Glucose 134 mg/dL JIE Comment: The ADA recommends reporting an estimated Average Glucose (eAG) with all Hemoglobin A1c results using the equation derived from a study of 507 normal and diabetic adults. Minority populations were underrepresented and children were not included. (Diabetes Care 31:8135-4942, 2008). The eAG is not equivalent to a fasting glucose. Blood 08/12/2024 12:0 0 PM [employer] 08/12/2024 8:33 PM [employer] us Herminio Marie MD LAB BLOOD ORDERABLES Final Result [facility] [address] Department [place] [address] * Lipid panel (08/12/2024 12:00 PM [employer]) Cholesterol 154 30 - 199 mg/dL Comment: [...] JIE MARTINEZ Blood 08/12/2024 12:0 0 PM [employer] 08/12/2024 8:33 PM [employer] us Herminio Marie MD LAB BLOOD ORDERABLES Final Result Performing Organization Address City/[facility]/ZIP Co de Phone Number JIE MARTINEZ [address] Department [place] [address] * Comprehensive metabolic panel (08/12/2024 12:00 PM [employer]) Sodium 143 135 - 145 mmol/L Potassium, [...] CERNER CH Blood 08/12/2024 12:0 0 PM [employer] 08/12/2024 8:33 PM [employer] us Herminio Marie MD LAB BLOOD ORDERABLES Final Result Performing Organization Address City/[facility]/ZIP Co de Phone Number JIE MARTINEZ [address] Department [place] [address] * Albumin Creatinine Ratio, Urine (01/29/2024 8:07 AM CDT) Albumin Ur <12.0 mg/L Comment: Interpretive Data No reference range established. Current interpretive data was last revised 2018. Creatinine Ur 118.2 mg/dL [facility] Comment: Interpretive Data No reference range established. Current interpretive data was last revised 2018. Albumin Creatinine Ratio, Ur <10 1 - 29 mg/g [facility] Urine 01/29/2024 8:07 AM CDT 01/29/2024 2:53 PM CDT Result [facility] Gifty Willard MD LAB URINE ORDERABLES F inal Result [facility] [address] Department [place] [address] * MAMMOGRAPHY (05/30/2023 9:00 AM CDT) Result [facility] Historical Provider HEALTH MAINTENANCE Final Result * DIABETES EYE EXAM (09/20/2022 3:25 PM [employer]) Result [facility] Provider HEALTH MAINTENANCE Final Result * Hepatitis C antibody (04/30/2022 9:50 AM CDT) Pathologist [facility] Hep C Ab Nonreactive Nonreactive [facility] Comment: Interpretive Data Nonreactive: Antibodies [...] GEN ERAL ORDERABLES Final Result JIE MARTINEZ [address] Department [place] [address] * DEXA SCAN (02/26/2022) Scribed Deca Scan Normal Comment:care everywhere Historical Provider HEALTH MAINTENANCE Final Result * COLONOSCOPY (04/01/2020) Scribed Colonoscopy Abnormal Comment:2 small polyps. repe at in 5 yrs 04/01/2020 Historical Provider HEALTH MAINTENANCE Edited Result - Final from Last 3 Months or Most Recently Relevant to Health Maintenance Insurance [facility] [employer] [facility] [employer] Advance Directives For more information, please contact: [phone] * Full Code (Latest Code Status on File) Date Activated Date Inactivated Comments 05/24/2022 9:47 AM 05/24/2022 3:42 PM * Full Code Date Activated Date Inactivated Comments 05/24/2022 9:47 AM 05/24/2022 9:47 AM Care Teams Buttonhole Maker Hand Relationship Specialty Start Date End Date Herminio Marie MD [address] [facility] [address] [place] [address] PCP - General Family Medicine 08/12/24 Isela Glasgow, PhD [address] [facility] [address] [place] [address] Referring Physician Obstetrics and Gynecology 01/24/22 Girma Hidalgo MD [address] [address] Referring Physician Orthopedic Surgery 01/27/24 [place] Will MD [address] [place] [address] Consulting Physician Neurology 01/27/24 Drew Pimentel MD [address] [place] [address] Orthopedic Surgery 01/27/24 Tresa Bello PA [address] [facility] [address] [place] [address] Physician Polystyrene Bead Molder Vascular Surgery 01/27/24
--- OUTSIDE RECORDS SUMMARY | 2024-10-07 13:06 | XMS_ITS | Encounter Summary ---
Author Organization [facility] Healthcare Address [address] [place] [address] Care Team Providers Care Manager Software Name Role Phone Isela Glasgow PhD Unavailable [phone] Grima Hidalgo MD Unavailable [phone] Ana Rosa Will MD Unavailable + [phone] Drew Pimentel MD Unavailable [phone] Tresa Bello Unavailable [phone] Herminio Marie MD Primary Care Provider [phone] Reason for Visit * Reason Onset Date Comments Medication Problem 10/05/2024 Metronidazole gel Encounter Details Date Type Department Care Team (Late st Contact Info) Description 10/05/2024 Telephone [facility] Primary Care at [address] [address] Herminio Marie MD [address] [place] [address] [address] [place] [address] Medication Problem (Metronidazole gel ) Social History Tobacco Use Types Packs/Day Years Used Date Smoking Tobacco: Never Smokeless Tobacco: Never [facility] Utilities Answer Date Recorded In [...] any clubs o r organizations such as temple groups, unions, fraternal or athletic groups, or [...] any time in the past 12 m [facility], were you homeless or living in a halfway (including now)? No 06/17/2024 Comments No Sex and Gender Information Value Date Recorded Sex Assigned at Not on file Legal Sex Female 4:24 PM DANCE PROFESSOR Gender Identity Female 02/06/2022 8:58 AM CDT Sexual Orientation Not on file documented as of this encounter Miscellaneous Notes * Telephone Encounter - Ginny Christiansen MA - 10/06/2024 4:15 PM CST Tried calling pt but number is not accepting calls at this time. Sent [employer] message. E PROFESSOR * Telephone Encounter - Ginny Christiansen MA - 10/05/2024 9:14 AM CST Pt called in stating the metronidazole gel is not covered by her insurance and is is to expensive to pay out of pocket. She is wanting to know if there may be something else she can try. P: [phone] E PROFESSOR documented in this encounter Plan of Treatment Not on file documented as of this encounter Visit Diagnoses Not on filedocumented in this encounter Care Teams Manager Software Relationship Specialty Start Date End Date Herminio Marie MD [address] [facility] [address] [place] [address] PCP - General Family Medicine 08/12/24 Isela Glasgow, PhD [address] [facility] [address] [place] [address] Referring Physician Obstetrics and Gynecology 01/24/22 Girma Hidalgo MD [address] [address] Referring Physician Orthopedic Surgery 01/27/24 [place] Will MD [address] [place] [address] Consulting Physician Neurology 01/27/24 Drew Pimentel MD [address] [place] [address] Orthopedic Surgery 01/27/24 Tresa Bello PA [address] [facility] [address] [address] Physician Healthcare Liaison Vascular Surgery 01/27/24 documented as of this encounter
--- OUTSIDE RECORDS SUMMARY | 2024-10-07 13:06 | XMS_ITS | Encounter Summary ---
Author Organization [facility] Healthcare Address [address] [place] [address] Care Team Providers Care Director Business Systems Name Role Phone Isela Glasgow PhD Unavailable [phone] Girma Hidalgo MD Unavailable [phone] Ana Rosa Will MD Unavailable + [phone] Drew Pimentel MD Unavailable [phone] Tresa Bello Unavailable [phone] Herminio Marie MD Primary Care Provider [phone] Reason for Visit * Reason Onset Date Comments Dizziness 10/07/2024 Vomiting 10/07/2024 Encounter Details Date Type Department Care Team (Late st Contact Info) Description 10/07/2024 Nurse Triage [facility] Medical Group Primary Care at [address] [address] Herminio Marie MD [address] [place] [address] [address] [place] [address] Social History Tobacco Use Types Packs/Day Years Used Date Smoking Tobacco: Never Smokeless Tobacco: Never [facility] Utilities Answer Date Recorded In the [...] often do you attend chur ch or mu-ism services? Never 06/17/2024 Do you belong to any clubs o r organizations such as anabaptist groups, unions, fraternal or athletic groups, or [...] any time in the past 12 m [facility], were you homeless or living in a fdc (including now)? No 06/17/2024 Comments No Sex and Gender Information Value Date Recorded Sex Assigned at Not on file Legal Sex Female 4:24 PM REGENERATION OPERATOR Gender Identity Female 02/06/2022 8:58 AM CDT Sexual Orientation Not on file documented as of this encounter Miscellaneous Notes * Telephone Encounter - Norma Ramsey RN - 10/07/2024 9:04 AM CST Lucia Bruner is calling with c/o vomiting since 4 am this morning with lightheadedness/dizziness. Pt is vomiting when call connected through union contract representative services. Pt states she is sweating and [...] lasted less than 24 hours.) Protocols used: [id number]-VQ NERATION OPERATOR * Telephone Encounter - Norma Ramsey RN - 10/07/2024 8:58 AM CST Regarding: Lightheadedness ----- Message from Marlen Peirce sent at 10/07/2024 8:56 AM REGENERATION OPERATOR ----- Symptom Based Call Chief Complaint(s): Lightheadedness Duration: Since 4 am this morning What type of symptom(s) is the patient experiencing? Red Flag. Is the patient concerned they are experiencing a medical emergency requiring an ambulance? No Additional Comments: Patient called in with union contract representative on the line states that she has been vomiting all morning a total of 20 times, says that she get nauseous and shaky before vomiting and unable to hold down even water Does message need to be routed? Yes-Action Needed NERATION OPERATOR documented in this encounter Plan of Treatment Not on file documented as of this encounter Visit Diagnoses Not on filedocumented in this encounter Care Teams Director Business Systems Relationship Specialty Start Date End Date Herminio Marie MD [address] [facility] [address] [place] [address] PCP - General Family Medicine 08/12/24 Isela Glasgow, PhD [address] [place] [address] [address] [place] [address] Referring Physician Obstetrics and Gynecology 01/24/22 Girma Hidalgo MD [address] [address] Referring Physician Orthopedic Surgery 01/27/24 Ana Rosa Will MD [address] [place], [place] [id number] Consulting Physician Neurology 01/27/24 Drew Pimentel MD [address] [place] [address] Orthopedic Surgery 01/27/24 Tresa Bello PA [address] [address] Physician Communication Professor Vascular Surgery 01/27/24 documented as of this encounter
--- OUTSIDE RECORDS SUMMARY | 2024-10-07 13:06 | XMS_ITS | Encounter Summary ---
Author Organization [facility] Health Address [facility] [place] [address] Care Team Providers Care Remittance Clerk Name Role Phone Gifty Willard Primary Care Provider Gifty Bentley Unavailable Unavailable Reason for Visit * Reason Onset Date Comments Concerns 06/23/2024 Encounter Details Date Type Department Care Team (Late Contact Info) Description 06/23/2024 Telephone [facility] - SENIOR STATISTICIAN [address] [facility] [address] [place] [address] Isela Glasgow, AYAKA-DIRECTOR WOMEN [address] [place] [address] Concerns Social History Tobacco Use [...] know if she would see this dr. ERY DIVISION CHIEF documented in this encounter Plan of Treatment Upcoming Encounters Date Type Department Care Team (Late Contact Info) Description 10/15/2024 10:10 AM CDT Office Visit [facility] - SENIOR STATISTICIAN [address] [place] [address] Isela Glasgow, SEWAGE RETICULATION DRAFTING OFFICER-DIRECTOR WOMEN [address] [facility] [address] [place] [phone] documented as of this encounter Visit Diagnoses Not on filedocumented in this encounter Care Teams Remittance Clerk Relationship Specialty Start Date End Date Gifty Willard PCP - General Family Medicine 01/23/24 Gifty Willard Primary Care Provider Family Medicine 01/23/24 documented as of this encounter
--- OUTSIDE RECORDS SUMMARY | 2024-10-07 13:06 | XMS_ITS | Clinical Summary ---
Author Organization [facility] Address [address] [facility] [place] [address] Care Team Providers Care Knowledge Analyst Name Role Phone Gifty Willard Primary Care Provider Unavailabl e Gifty Willard Unavailable Unavailable Source Comments [facility],non-owned Affiliates and Associated Physician Practices is amultiple site organization consisting of ambulatory clinics and hospital sitesin [place], [place], [place] and [place]. This disclosure is being madepursuant to the Care Everywhere program and may not contain all information available regarding this patient. Last updated 18.[facility] Allergies Active Allergy Reactions Criticality Noted Date [...] mouth once daily 03/09/2021 Active nystatin (Mycostatin) 502706 UNIT/GM ointmentIndications :Lichen sclerosus,Vulvar itching Use with [...] AM CDT Pulse 79 07/04/2018 12:32 PM BUILDING TECH Temperature 36.9 C (98.5 F) 11/11/2018 11:00 AM CDT Respiratory Rate 18 07/04/2018 12:32 PM BUILDING TECH Oxygen Saturation 98% 07/04/2018 12:32 PM BUILDING TECH Inhaled Oxygen Concentration - - Weight 78.9 kg (174 lb) 04/16/2024 10:31 AM CDT Height 165.1 cm (5' 5 ) 04/16/2024 10:31 AM CDT Body Mass Index 28.96 04/16/2024 10:31 AM CDT Plan of Treatment Upcoming Encounters Date Type Department Care Team (Late st Contact Info) Description 10/15/2024 10:10 AM CDT Office Visit [facility] - SAP BUSINESS OBJECTS CONSULTANT [address] [place] [address] Isela Glasgow APRN-BLOOD BANK ATTENDANT [address] [facility] [address] [place] [address] Health Maintenance Due Date Last [...] PANEL (CALCIUM TOTAL) STAT 07/04/2018 4:11 PM BUILDING TECH from Last 3 Months or Most Recently Relevant to Health Maintenance Results * DEXA BONE DENSITY 2 SITES (02/26/2022) Anatomical Region Laterality Modality Other 02/26/2022 Narrative 02/26/2022 Ordered by an unspecified provider. Scanned Document DEXA ORDERABLES * BASIC METABOLIC PANEL (CALCIUM TOTAL) (07/04/2018 4:11 PM BUILDING TECH) BUN 11 7 - 26 mg/dL 07/04/2018 [...] Unknown Venipuncture / Unknown 07/04/2018 4:11 PM BUILDING TECH 07/04/2018 4:16 PM BUILDING TECH Usha Anguiano PA-C LAB - CHEMI STRY ORDERABLES [facility] [address] [phone] from Last 3 Months or Most Recently Relevant to Health Maintenance Advance Directives Documents on File Type Date Recorded Patient Home Health Clinical Liaison Expl anation Adv Directive/Living Will/POA 02/11/2014 5:15 AM LIVING YU * FULL RESUSCITATION (Latest Code Status on File) Date Activated Date Inactivated Comments 04/11/2011 9:07 AM 04/15/2011 12:59 AM Care Teams Knowledge Analyst Relationship Specialty Start Date End Date Gifty Willard PCP - General Family Medicine 01/23/24 Gifty Willard Primary Care Provider Family Medicine 01/23/24
--- OUTSIDE RECORDS SUMMARY | 2024-10-07 13:06 | XMS_ITS | Encounter Summary ---
Author Organization [facility] Address [address] [place] [address] Care Team Providers Care Deboning Team Leader Name Role Phone Gifty Willard MD Primary Care Provider Girma Hidalgo MD Unavailable [phone] Rogers Humphries MD, Crystal Unavailable [phone] Encounter Details Date Type Department Care Team (Late st Contact Info) Description 03/19/2022 BidModo Message Enc [facility] Medical Group Orthopedic & Sports Medicine [address] [address] [email or web address], [facility] Provider medication request Social History Tobacco Use [...] documented as of this encounter Care Teams Deboning Team Leader Relationship Specialty Start Date End Date Gifty Willard MD [address] [place] [phone] PCP - General SPORTS MEDICINE 02/13/22 Girma Hidalgo MD [address] [address] [place] [address] Consulting Physician ORTHOPAEDIC SURGERY 02/27/22 Yeni Mccloud MD [address] [place] [address] [phone] (Work) Consulting Physician HOSPITALIST 03/12/22 documented as of this encounter
--- OUTSIDE RECORDS SUMMARY | 2024-10-07 13:06 | XMS_ITS | Referral Summary ---
Author Organization [facility] Address [address] [facility] [place] [address] Care Team Providers Care Communications Programmer Name Role Phone Gifty Willard Primary Care Provider Unavailabl e Gifty Willard Unavailable Unavailable Source Comments [facility],non-owned Affiliates and Associated Physician Practices is amultiple site organization consisting of ambulatory clinics and hospital sitesin [place], [place], [place] and [place]. This disclosure is being madepursuant to the Care Everywhere program and may not contain all information available regarding this patient. Last updated 18.[facility] [employer] Allergies Active Allergy Reactions Criticality Noted Date [...] mouth once daily 03/09/2021 Active nystatin (Mycostatin) 259199 UNIT/GM ointmentIndications :Lichen sclerosus,Vulvar itching Use with [...] AM CDT Pulse 79 07/04/2018 12:32 PM MANAGER COSMETIC Temperature 36.9 C (98.5 F) 11/11/2018 11:00 AM CDT Respiratory Rate 18 07/04/2018 12:32 PM MANAGER COSMETIC Oxygen Saturation 98% 07/04/2018 12:32 PM MANAGER COSMETIC Inhaled Oxygen Concentration - - Weight 78.9 kg (174 lb) 04/16/2024 10:31 AM CDT Height 165.1 cm (5' 5 ) 04/16/2024 10:31 AM CDT Body Mass Index 28.96 04/16/2024 10:31 AM CDT Plan of Treatment Upcoming Encounters Date Type Department Care Team (Late st Contact Info) Description 10/15/2024 10:10 AM CDT Office Visit [facility] - ASSISTANT CONSTRUCTION SUPERINTENDENT [address] [place] [address] Isela Glasgow, REPAIR COIL WINDER-HOROLOGIST APPRENTICE [address] [facility] [address] [place] [address] Procedures Procedure Name Priority Date/Time Associated Diagnosis Comments DEXA BONE DENSITY 2 SITES 02/26/2022 BASIC METABOLIC PANEL (CALCIUM TOTAL) STAT 07/04/2018 4:11 PM MANAGER COSMETIC from Last 3 Months or Most Recently Relevant to Health Maintenance Results * DEXA BONE DENSITY 2 SITES (02/26/2022) Anatomical Region Laterality Modality Other 02/26/2022 Narrative 02/26/2022 Ordered by an unspecified provider. Scanned Document DEXA ORDERABLES * BASIC METABOLIC PANEL (CALCIUM TOTAL) (07/04/2018 4:11 PM MANAGER COSMETIC) BUN 11 7 - 26 mg/dL 07/04/2018 4:36 PM [facility] Creatinine 0.7 0.6 - 1.2 mg/dL 07/04/2018 4:36 PM [facility] Sodium 138 136 - 145 mmol/L 07/04/2018 4:36 PM [facility] Potassium 3.9 3.5 - 4.5 mmol/L 07/04/2018 4:36 PM [facility] Chloride 103 98 - 107 mmol/L 07/04/2018 4:36 PM MANAGER COSMETIC [facility] CO2 25 22 - 29 mmol/L 07/04/2018 4:36 PM [facility] Glucose 88 70 - 115 mg/dL 07/04/2018 4:36 PM [facility] Calcium 9.5 8.4 - 10.2 mg/dL 07/04/2018 4:36 PM [facility] Anion Gap 14 8 - 18 07/04/2018 4:36 PM [facility] BUN/Creatinine Ratio 16 7 - 23 07/04/2018 4:36 PM [facility] Osmolality Calculated 285 270 - 300 mOsm/kg 07/04/2018 4:36 PM [facility] eGFR >60 >60 mL/min/1.7 3 m2 07/04/2018 4:36 PM [facility] Blood BLOOD SPECIMEN / Unknown Venipuncture / Unknown 07/04/2018 4:11 PM MANAGER COSMETIC 07/04/2018 4:16 PM [facility] Usha Anguiano PA-C LAB - CHEMI STRY ORDERABLES [facility] [address] [phone] from Last 3 Months or Most Recently Relevant to Health Maintenance Administered Medications Advance Directives Documents on File Type Date Recorded Patient Ventilating Engineer Expl anation Adv Directive/Living Will/POA 02/11/2014 5:15 AM LIVING YU * FULL RESUSCITATION (Latest Code Status on File) Date Activated Date Inactivated Comments 04/11/2011 9:07 AM 04/15/2011 12:59 AM Care Teams Communications Programmer Relationship Specialty Start Date End Date Gifty Willard PCP - General Family Medicine 01/23/24 Gifty Willard Primary Care Provider Family Medicine 01/23/24
--- OUTSIDE RECORDS SUMMARY | 2024-10-07 13:06 | XMS_ITS | Encounter Summary ---
Author Organization [facility] Address [address] [place] [address] Care Team Providers Care Hoisting Laborer Name Role Phone Gifty Willard MD Primary Care Provider Girma Hidalgo MD Unavailable [phone] Rogers Humphries MD, Crystal Unavailable [phone] Encounter Details Date Type Department Care Team (Late st Contact Info) Description 03/07/2022 FormaFina Message Enc [facility] Medical Group Orthopedic & Sports Medicine [address] [address] [employer] [facility], [facility] Provider question Social History Tobacco Use Types [...] documented as of this encounter Care Teams Hoisting Laborer Relationship Specialty Start Date End Date Gifty Willard MD [address] [place] [phone] PCP - General SPORTS MEDICINE 02/13/22 Girma Hidalgo MD [address] [address] [place] [address] Consulting Physician ORTHOPAEDIC SURGERY 02/27/22 Yeni Mccloud MD [address] [place] [address] [phone] (Work) Consulting Physician HOSPITALIST 03/12/22 documented as of this encounter
--- OUTSIDE RECORDS SUMMARY | 2024-10-07 13:06 | XMS_ITS | Encounter Summary ---
Author Organization [facility] Health Address [facility] [place] [address] Care Team Providers Care Ballast Cleaning Machine Operator Name Role Phone Mona Avendano MD Primary Care Provider [phone] Usha Wood MD Primary Care Provider [phone] Usha Wood MD Primary Care Provider [phone] Patrizia Mcghee MD Unavailable [phone] Tres Calzada MD Primary Care Provider [phone] Gifty Willard MD Primary Care Provider [phone] PcpJovan - Primary Care Provider Un available [...] CDT Office Visit [facility] - INTERPRETER [address] [facility] [address] [place] [phone] Isela Glasgow INVENTORY MANAGER-REFINERY OPERATOR HELPER [address] [place] [address] documented as of this encounter Visit Diagnoses Not on filedocumented in this encounter Care Teams Ballast Cleaning Machine Operator Relationship Specialty Start Date End Date Mona Avendano MD [address] [facility] [address] [place] [address] PCP - General 12/21/10 10/21/13 Usha Wood MD [address] [facility] [address] [place] [address] PCP - General Internal Medicine 10/22/13 12/07/13 Usha Wood MD [address] [facility] [address] [place] [address] PCP - General Internal Medicine 12/08/13 07/03/18 Tres Calzada MD [address] [place] [address] PCP - General Internal Medicine 07/04/18 07/05/22 Gifty Willard MD [address] [facility] [facility] [address] [place] [phone] PCP - General 07/06/22 02/28/23 Jovan Fontana Im-Fm PCP - General 03/01/23 10/13/23 Gifty Willard PCP - General Family Medicine 01/23/24 Patrizia Mcghee MD [address] [facility] [address] [place] [address] Orthopedic Surgery 12/08/13 07/03/18 Gifty Willard Primary Care Provider Family Medicine 01/23/24 documented as of this encounter
--- NOTE | 2024-10-07 13:15 | ED.GENADULT ---
HPI - General Adult General Chief complaint: Nausea/Vomiting/Diarrhea Stated complaint: n/v Time Seen by Provider: 10/07/24 11:10 History of Present Illness HPI narrative: 74-year-old female presented to the emergency department for evaluation for lower abdominal pain with associated nausea and vomiting. Patient reported she had onset of the nausea and vomiting at approximately 4:00 a.m.. Patient has had approximately 20 episodes of nausea vomiting does report associated lower abdominal pain. Patient is hearing impaired and the daughter is acting as fuel assembler. All questions and concerns were addressed through the daughter. Related Data Home Medications ?Medication ?Instructions ?Recorded ?Confirmed ?Last Taken ?Type aspirin 81 mg tablet,delayed 81 mg PO DAILY 06/01/19 12/25/21 03/30/20 History release (Adult Low Dose Aspirin) calcium 250 mg (phosphate)-vit D3 1 tablet PO BID 03/17/20 12/25/21 03/30/20 History 12.5 mcg (500 unit) chewable tablet (Citracal-D3 Gummies) doxycycline hyclate 100 mg capsule 100 mg PO DAILY 12/25/21 12/25/21 Unknown History metronidazole 1 % topical cream 1 applic topical DAILY 12/25/21 12/25/21 Unknown History Allergies Allergy/AdvReac Type Severity Reaction Status Date / Time Penicillins Allergy Unknown Rash/ITCHIN Verified 02/23/22 16:57 G Review of Systems Review of Systems: All systems reviewed & are unremarkable except as noted in HPI and below PMFSH Past Medical History Medical History (Updated 10/07/24 @ 18:37 by Joey Tinsley MD) Arthritis Degenerative joint disease of right hip Degenerative joint disease of left hip Nasal septum ulceration Rash Vaccine counseling Obesity (BMI 30.0-34.9) Seasonal allergies Vaginal dryness GERD (gastroesophageal reflux disease) Venous insufficiency Obesity (BMI 30.0-34.9) Deaf, nonspeaking Dyslipidemia ELIZABETH (obstructive sleep apnea) Essential hypertension Type 2 diabetes mellitus with diabetic polyneuropathy, without long-term current use of insulin ELIZABETH (obstructive sleep apnea) Surgical History Surgical History (Updated 02/23/22 @ 18:34 by Katie Newsome MD) History of right hip replacement History of foot surgery Bilateral bunionectomy [id number] History of left knee replacement Family History Family History Mother Diabetes mellitus Father Asthma Family history of chronic obstructive pulmonary disease Other Arthritis Cerebrovascular accident Depression Family history of alcoholism Family history of obesity High cholesterol Social History Social History Social History: Lives alone with her dog. Has 3 children. Smoking status: Never smoker Second hand tobacco smoke exposure: Yes Additional smoking assessment comments: DENIES ANY FORM OF TOBACCO USE Alcohol intake: never Substance use: never Substance use type: does not use Living arrangements: alone Spiritual care concerns: Yes (episcipalian) Exam Narrative: APPEARANCE: Uncomfortable appearing HEAD: normocephalic, atraumatic. EYES: PERRLA/EOMI, conjunctivae clear. NOSE: Normal no drainage EARS:TMS clear with good light reflex. THROAT: Pharynx clear, no exudate. NECK: Supple. No adenopathy, no masses. RESPIRATORY: Airway patent, respirations nonlabored. Clear to auscultation bilaterally, no rales, rhonchi, wheezing. CARDIOVASCULAR: Regular rate and rhythm without murmurs rubs or gallops. ABDOMINAL: Lower abdominal tenderness to palpation MUSCULOSKELETAL: Moves all extremities. Strength/ROM intact, No edema, No calf tenderness. NEURO: Alert. Cranial nerves II through XII intact. Good gait. Good coordination SKIN: Warm, dry. Normal Color Course Vital Signs Vital signs: Vital Signs Temperature 97.4 F L 10/07/24 10:21 Pulse Rate 104 H 10/07/24 10:21 Respiratory Rate 16 10/07/24 10:21 Blood Pressure 155/74 H 10/07/24 10:21 Pulse Oximetry 97 10/07/24 10:21 Temperature 97.4 F L 10/07/24 10:21 Pulse Rate 70 10/07/24 14:47 Respiratory Rate 16 10/07/24 14:47 Blood Pressure 125/51 L 10/07/24 14:47 Pulse Oximetry 95 10/07/24 14:47 Medical Decision Making [facility] Narrative Medical decision making narrative: 74-year-old female presented emergency department for evaluation for nausea vomiting diarrhea. Patient is currently afebrile but does have a leukocytosis of 13.1 hemoglobin of 15.9. Patient did have a lactic acid is 2.6 was treated with IV fluids. UA was leukocyte esterase positive, low blood cells for 11-20 with few squamous and right bacteria, urine culture was ordered. Patient did feel improved with IV fluids and anti emetics. Patient and family are updated on results of the workup they are comfortable with plan for discharge and follow-up. Differential Diagnosis Differential Diagnosis: COVID, RSV, influenza a, colitis, diverticulitis, diarrhea, bowel obstruction Vital Signs Vital Signs: Vital Signs Temperature 97.4 F L 10/07/24 10:21 Pulse Rate 104 H 10/07/24 10:21 Respiratory Rate 16 10/07/24 10:21 Blood Pressure 155/74 H 10/07/24 10:21 Pulse Oximetry 97 10/07/24 10:21 Temperature 97.4 F L 10/07/24 10:21 Pulse Rate 70 10/07/24 14:47 Respiratory Rate 16 10/07/24 14:47 Blood Pressure 125/51 L 10/07/24 14:47 Pulse Oximetry 95 10/07/24 14:47 Lab Data Lab results reviewed: Yes I reviewed the patient's lab results. 10/07/24 12:10 10/07/24 12:10 Labs: Lab Results 10/07/24 10/07/24 Range/Units 12:10 13:24 WBC 13.1 H (4.5-10.0) K/mm3 RBC 5.30 (4.2-5.4) M/mm3 Hgb 15.9 H (12.0-15.0) g/dL Hct 48.8 H (37.0-47.0) % MCV 92.1 (80-100) fl MCH 30.0 (26-34) pg MCHC 32.6 (32-36) g/dl RDW 14.3 (11.5-14.5) % Plt Count 248 (150-375) k/mm3 MPV 9.7 (7.4-10.4) fl Immature Gran % (Auto) 0.4 (0-0.5) % Neut % (Auto) 91.7 H (45.5-73.1) % Lymph % (Auto) 3.1 L (18.3-44.2) % Johnston % (Auto) 4.5 (2.6-8.5) % Eos % (Auto) 0.1 (0-4.4) % Baso % (Auto) 0.2 (0.2-1.2) % Lymph # (Auto) 0.40 L (0.9-3.2) K/mm3 Johnston # (Auto) 0.6 (0.1-0.6) K/mm3 Eos # (Auto) 0.0 (0-0.3) K/mm3 Baso # (Auto) 0.0 (0.0-0.1) K/mm3 Abs Immat Gran (auto) 0.05 H (0.00-0.031) K/mm3 Absolute Neuts (auto) 12.0 H (1.3-6.7) K/mm3 Absolute Nucleated RBC 0.000 (0.0-0.012) K/mm3 Nucleated RBC % 0.0 (0.0-0.2) % Sodium 141 (137-145) mmol/L Potassium 4.7 (3.4-5.0) mmol/L Chloride 105 (98-107) mmol/L Carbon Dioxide 26 (22-30) mmol/L Anion Gap 10 (4-12) mmol/L BUN 18 H (7-17) mg/dL Creatinine 0.66 L (0.7-1.0) mg/dL Estim Creat Clear Calc 66 ml/min Estimated GFR > 60 (59 - ) Glucose 156 H (65-110) mg/dL Lactic Acid 2.6 H (0.7-2.0) mmol/L Calcium 9.3 (8.4-10.2) mg/dL Total Bilirubin 0.9 (0.2-1.3) mg/dL AST 29 (14-36) U/L ALT 27 (6-35) U/L Alkaline Phosphatase 81 (38-126) U/L Total Protein 8.0 (6.3-8.2) g/dL Albumin 4.5 (3.5-5.1) g/dL Lipase 83 (23-300) U/L Urine Color Yellow (Yellow) Urine Appearance Clear (Clear) Urine pH 6.0 (5.0-9.0) Ur Specific [place] > 1.045 H (1.001-1.035) Urine Protein Negative (Negative) mg/dL Urine Glucose (UA) Negative (Negative) mg/dL Urine Ketones Negative (Negative) mg/dL Ur Blood (Man) Negative (Negative) Urine Nitrate Negative (Negative) Urine Bilirubin Negative (Negative) Urine Urobilinogen 1.0 (<2.0) mg/dL Leukocyte Esterase Rfl 1+ H (Negative) KATHY/UL Urine RBC 0-2 (0-2) /hpf Urine WBC 11-20 H (0-3) /hpf Ur Squamous Epith Cells Few (Few) /hpf Urine Bacteria Rare /hpf Urine Casts 0-2 Influenza A (RT-PCR) Negative (Negative) Influenza B (RT-PCR) Negative (Negative) RSV (RT-PCR) Negative (Negative) SARS-CoV-2 RNA (RT-PCR) Negative (Negative) Imaging Data Radiologist's impression: Impressions Abdomen/Pelvis CT 10/07/24 13:04 IMPRESSION: 1. No evidence of appendicitis, diverticulitis or intestinal obstruction. 2. Possible enteritis versus diarrhea. Clinical correlation advised. 3. Fat infiltration of the liver. Discharge Plan Discharge Clinical Impression: Nausea & vomiting, Abdominal pain Patient Disposition: Home, Self-Care Condition: Stable Instructions: Antibiotic Form, Clear Liquid Diet (ED), Acute Nausea and Vomiting (ED) Additional Instructions: Clear liquid diet for the next 1-3 days. Zofran as needed for nausea control. Have close follow-up with your primary care physician. If you have any worsening symptoms then please call or return to the emergency department. A urine culture was ordered, you may receive a call in the next 24-48 hours to start an antibiotic if the urine culture grows anything concerning. Patient Language: Ukrainian Sign Language Prescriptions: New ondansetron 4 mg tablet,disintegrating 4 mg PO Q8H PRN (Reason: nausea and vomiting) Qty: 14 0RF No Action aspirin [Adult Low Dose Aspirin] 81 mg tablet,delayed release (DR/EC) 81 mg PO DAILY metronidazole 1 % cream 1 applic topical DAILY doxycycline hyclate 100 mg capsule 100 mg PO DAILY calcium phosphate-vitamin D3 [Citracal-D3 Gummies] 250 mg calcium- 500 unit Tablet,Chewable 1 tablet PO BID omeprazole 40 mg capsule,delayed release(DR/EC) 40 mg PO BID Qty: 30 0RF sucralfate 1 gram tablet 1 g PO Q6H Qty: 40 0RF (DME) Contour Next Test Strips Strip See Rx Instructions .ROUTE .MEDSUPPLY Qty: 10 0RF Rx Instructions: As directed (DME) lancets [Microlet Lancet] Misc See Rx Instructions .Route Qty: 200 1RF Rx Instructions: Use to test blood sugar two times a day meclizine 12.5 mg tablet 12.5 mg PO TID PRN (Reason: dizziness) Qty: 30 0RF metformin 500 mg tablet See Rx Instructions .ROUTE .COMPLEX Qty: 360 1RF Dose Instruction: TAKE TWO TABLETS BY MOUTH TWICE A DAY Rx Instructions: TAKE TWO TABLETS BY MOUTH TWICE A DAY albuterol sulfate 90 mcg/actuation HFA aerosol inhaler 1 puff inhalation Q4H PRN (Reason: bronchospasm) Qty: 8.5 0RF omeprazole 40 mg capsule,delayed release(DR/EC) 40 mg PO DAILY Qty: 30 2RF Rx Instructions: TAKE ONE CAPSULE BY MOUTH abel lisinopril 20 mg tablet See Rx Instructions .ROUTE .COMPLEX Qty: 90 1RF Dose Instruction: TAKE ONE TABLET BY MOUTH ONCE DAILY Rx Instructions: TAKE ONE TABLET BY MOUTH ONCE DAILY gabapentin 300 mg capsule 600 mg PO HS 90 Days Qty: 180 1RF Rybelsus 3 mg tablet 3 mg PO DAILY 90 Days Qty: 90 1RF atorvastatin 20 mg tablet See Rx Instructions .ROUTE .COMPLEX Qty: 90 0RF Dose Instruction: TAKE ONE TABLET BY MOUTH ONCE DAILY Rx Instructions: TAKE ONE TABLET BY MOUTH ONCE DAILY fluticasone propionate [Flonase Allergy Relief] 50 mcg/actuation spray,suspension 1 spray intranasal DAILY Qty: 16 0RF Rx Instructions: administer into each nostril Follow-up/Referrals: Frank,Herminio Barros MD [Primary Care Provider] -
[2024-10-07 13:32] VITALS: BP 128/74; PULSE 101; RESP 16; O2SAT 94
--- NOTE | 2024-10-07 13:42 | PC.NURSE ---
Pt. daughter updated. All questions answered. Daughter states she will return to hospital within an hour.
[2024-10-07] MEDS: KETOROLAC 15 MG/ML VIAL (*BKC) IV PUSH (13:47)
[2024-10-07 13:59] LABS: Add Urine Microscopic? YES; Appearance Urine Clear (Clear); Bacteria Urine Rare /hpf; Bilirubin Urine Negative (Negative); Blood Urine Negative (Negative); Color Urine Yellow (Yellow); Glucose Urine UA Negative (Negative); Ketones Urine Negative (Negative); Leukocyte Esterase Ur 1+ LEU/UL (Negative); Nitrate Urine Negative (Negative); Non Pathogenic Casts 0-2; Protein Urine Negative (Negative); RBC Urine 0-2 /hpf (0-2); Specific Grav Ur > 1.045 (1.001-1.035); Squamous Epithelial Cell Urine Few /hpf (Few)
[2024-10-07 14:21] LABS: SARS-CoV-2 RNA PCR Negative (Negative)
[2024-10-07 14:22] LABS: Influenza A QL RT-PCR Negative (Negative); RSV RNA, RT-PCR Negative (Negative)
[2024-10-07 14:47] VITALS: BP 125/51; PULSE 70; RESP 16; O2SAT 95
[2024-10-07 15:14] LABS: Reflex Lactic Acid Yes or No Add Lactic
[2024-10-08 00:03] LABS: Influenza B QL RT-PCR Negative (Negative)
== END 2024-10-07 15:06 | disposition home or self-care (01) ==
PROVIDERS: Emergency Provider Emergency Medicine; PCP Family Medicine
DX: R10.30 Lower abdominal pain, unspecified (principal); R11.2 Nausea with vomiting, unspecified; Z20.822 Contact with and (suspected) exposure to COVID-19; E11.42 Type 2 diabetes mellitus with diabetic polyneuropathy; E78.5 Hyperlipidemia, unspecified; E66.9 Obesity, unspecified; Z68.27 Body mass index [BMI] 27.0-27.9, adult; I87.2 Venous insufficiency (chronic) (peripheral); I10 Essential (primary) hypertension; G47.33 Obstructive sleep apnea (adult) (pediatric); K21.9 Gastro-esophageal reflux disease without esophagitis; H91.90 Unspecified hearing loss, unspecified ear; M16.0 Bilateral primary osteoarthritis of hip; Z96.641 Presence of right artificial hip joint; Z96.652 Presence of left artificial knee joint; Z79.82 Long term (current) use of aspirin; Z79.84 Long term (current) use of oral hypoglycemic drugs; Z79.899 Other long term (current) drug therapy; K76.0 Fatty (change of) liver, not elsewhere classified
CPT/HCPCS: 36415; 74177; 80053; 81001; 83605; 83690; 85025; 87086; 87637; 96361; 96374; 96375; 99284; J1885; J2405; J7030; Q9967